=== PATIENT | female | born 1965 ===

== ENCOUNTER 2016-05-23 11:17 | Inpatient (IN) | payer MEDICAID ==
[2016-05-23 11:17] VITALS: BMI 20.1
--- NOTE | 2016-05-23 12:15 | C.PDOC ---
History Of Present Illness 51 y/o male presents to the ED requesting heroin detox, last use was yesterday. Pt also reports right hip pain after falling a few days ago. also reports wheezing, sob Denies head injury, LOC, weakness, numbness or any other complaints. Time Seen by Provider: 05/23/16 11:59 Chief Complaint (Nursing): Substance Abuse History Per: Patient History/Exam Limitations: no limitations Onset/Duration Of Symptoms: Days Current Symptoms Are (Timing): Still Present Modifying Factor(s): Narcotics Severity: Mild Involuntary Hold By: None Recent travel outside of the [place]: No Past Medical History Reviewed: Historical Data, Nursing Documentation, Vital Signs Vital Signs: Last Vital Signs Temp 98.0 F 05/23/16 11:30 Pulse 76 05/23/16 13:34 Resp 20 05/23/16 13:35 BP 128/75 05/23/16 13:34 Pulse Ox 95 05/23/16 15:21 - Medical History PMH: Asthma, Back Problems, Bronchitis, Kidney Stones (RIGHT), Chronic Kidney Disease - [facility] Procedures CLOSURE SKIN & SUBCUTANEOUS NEC (04/25/13) INJECT/INFUSE NEC (06/22/14) INTRODUCTION OF ANTI-INFLAM INTO RESP TRACT, VIA OPENING (03/16/15) INTRODUCTION OF SERUM/TOX/VACCINE INTO MUSCLE, PERC APPROACH (03/16/15) NEBULIZER THERAPY (06/22/14) TETANUS TOXOID ADMINIST (04/25/13) Family History: States: Unknown Family Hx - Social History Hx Tobacco Use: Yes Hx Alcohol Use: No Hx Substance Use: Yes (SNIFFS HERONE 8-9 BAGS DAILY.LAST USED YESTERDAY.) - Immunization History Hx Tetanus Toxoid Vaccination: Yes Hx Influenza Vaccination: Yes Hx Pneumococcal Vaccination: Yes Review Of Systems Except As Marked, All Systems Reviewed And Found Negative. Constitutional: Negative for: Fever Cardiovascular: Negative for: Chest Pain Respiratory: Negative for: Shortness of Breath Gastrointestinal: Negative for: Vomiting Musculoskeletal: Positive for: Other (right hip pain) Physical Exam - Physical Exam Appears: Non-toxic, No Acute Distress Skin: Warm, Dry, No Rash Head: Atraumatic, Normacephalic Nose: Normal Neck: Normal ROM, Supple Chest: Symmetrical Cardiovascular: Rhythm Regular Respiratory: Normal Breath Sounds, No Rales, No Rhonchi, Wheezing (diffuse) Gastrointestinal/Abdominal: Soft Extremity: Normal ROM, No Tenderness, No Deformity, No Swelling Extremity: Bilateral: Atraumatic Pulses: Right Dorsalis Pedis: Normal Neurological/Psych: Oriented x3, Normal Motor, Normal Sensation ED Course And Treatment - Laboratory Results Result Diagrams: 05/23/16 12:16 05/23/16 12:16 O2 Sat by Pulse Oximetry: 95 (on room air) Pulse Ox Interpretation: Normal Progress Note: On reevaluation, wheezing improved slightly, not medically cleared for psych floor, Jackie accepts patient. Medical Decision Making Medical Decision Making: pt wiht persistent wheezing, cannot be medically clear. noted ama from [place] 2 days ago for asthma Disposition - Disposition Disposition: HOSPITALIZED Disposition Time: 15:21 Condition: STABLE - Clinical Impression Clinical Impression: Asthma - Scribe Statement The provider has reviewed the documentation as recorded by the Julian Cantu Provider Attestation: All medical record entries made by the Georgeibe were at my direction and personally dictated by me. I have reviewed the chart and agree that the record accurately reflects my personal performance of the history, physical exam, medical decision making, and the department course for this patient. I have also personally directed, reviewed, and agree with the discharge instructions and disposition. Decision To Admit - Pt Status Changed To: Hospital Disposition Of: Inpatient - Admit Certification Admit to Inpatient:: After my assessment, the patient will require hospitalization for at least two midnights. This is because of the severity of symptoms shown, intensity of services needed, and/or the medical risk in this patient being treated as an outpatient. - InPatient: Physician Admission Certification: I certify that this patient requires 2 or more midnights of care for the following reason:: needs frequent nebs, possible detox - . Bed Request Type: Telemetry Admitting Physician: Bryan Mejia Patient Diagnosis: Asthma
[2016-05-23 12:23] LABS: BASO % 0.4 % (0.0-2.0); EOS % 0.2 % (0.0-4.0); HEMATOCRIT 37.5 % (34.0-47.0); LYMPH # 3.7 K/uL (1.0-4.3); LYMPH % 29.2 % (20.0-40.0); MEAN CELL VOLUME 92.5 fL (81.0-99.0); MEAN CORPUSCULAR HEMOGLOBIN 30.8 pg (27.0-31.0); MEAN CORPUSCULAR HGB CONC 33.3 g/dL (33.0-37.0); MEAN PLATELET VOLUME 9.1 fL (7.2-11.7); MONO # 0.9 K/uL (0.0-0.8); NRBC % 0.1 % (0.0-2.0); RED CELL DISTRIBUTION WIDTH 14.4 % (11.5-14.5); WHITE BLOOD COUNT 12.6 K/uL (4.8-10.8)
[2016-05-23 12:28] LABS: RBC URINE 1 /hpf (0-3); URINE BILIRUBIN NEGATIVE (NEGATIVE); URINE BLOOD NEGATIVE (NEGATIVE); URINE COLOR Yellow (YELLOW); URINE GLUCOSE (UA) NORMAL (Normal); URINE KETONE TRACE mg/dL (NEGATIVE); URINE LEUKOCYTE ESTERASE NEG Leu/uL (Negative); URINE PROTEIN NEGATIVE (NEGATIVE); URINE UROBILINOGEN NORMAL mg/dL (0.2-1.0); WBC URINE 3 /hpf (0-5)
[2016-05-23] MEDS ORDERED: Albuterol-Ipratrop 3 mg / 0.5 (3 ml) UD INH STA ×3 (12:28→13:36)
[2016-05-23 12:29] LABS: CHLORIDE 97 mmol/L (98-107); POTASSIUM 3.6 mmol/L (3.6-5.2); SODIUM 136 mmol/L (132-148)
[2016-05-23 12:31] LABS: AST/SGOT 31 U/L (14-36); BILIRUBIN,TOTAL 0.4 mg/dL (0.2-1.3); CARBON DIOXIDE 26 mmol/L (22-30); GFR AFRICAN-AMERICAN > 60
[2016-05-23 12:32] LABS: ALB/GLOB RATIO 1.2 (1.0-2.1); ALCOHOL SERUM < 10 mg/dl (0-10); ALKALINE PHOSPHATASE 56 U/L (38-126); ALT/SGPT 20 U/L (9-52); BLOOD UREA NITROGEN 16 mg/dL (7-17); CALCIUM 8.3 mg/dl (8.6-10.4); GLUCOSE,RANDOM 87 mg/dL (65-105); TOTAL PROTEIN 7.3 g/dL (6.3-8.3)
[2016-05-23] MEDS ORDERED: Albuterol-Ipratrop 3 mg / 0.5 (3 ml) UD ONE ×2 (12:59→13:53)
--- NOTE | 2016-05-23 13:12 | RAD ---
HISTORY: cough COMPARISON: Chest x-ray performed 03/20/16 TECHNIQUE: Chest, one view. FINDINGS: LUNGS: No focal consolidation. Please note that chest x-ray has limited sensitivity for the detection of pulmonary masses. PLEURA: No significant pleural effusion identified. No definite pneumothorax . CARDIOVASCULAR: Heart size appears within normal limits. OSSEOUS STRUCTURES: Degenerative changes. VISUALIZED UPPER ABDOMEN: Unremarkable. OTHER FINDINGS: None. IMPRESSION: No focal consolidation, significant pleural effusion, or definite pneumothorax identified.
--- NOTE | 2016-05-23 13:20 | RAD ---
PROCEDURE: Right Femur Radiographs. HISTORY: fall COMPARISON: None. TECHNIQUE: AP and Lateral Radiographs of the right femur. FINDINGS: FEMUR: Normal. No fracture. SOFT TISSUES: Normal. OTHER FINDINGS: None. IMPRESSION: Unremarkable radiographs of the right femur.
--- NOTE | 2016-05-23 13:21 | RAD ---
PROCEDURE: Right Hip and pelvis Radiographs. HISTORY: fall COMPARISON: None. FINDINGS: BONES: Normal. No fracture. JOINTS: Normal. SOFT TISSUES: Normal. OTHER FINDINGS: None. IMPRESSION: Negative study
--- NOTE | 2016-05-23 16:48 | CP.PCM.PN ---
Subjective - Date & Time of Evaluation Date of Evaluation: 05/23/16 Time of Evaluation: 16:30 - Subjective Subjective: Dr. Mejia service, admission: Patient is a 51 year old female with a PMH of asthma is here for Heroin detox. She was sent here by her grants officer for heroin detox. She has been through heroin detox before. She has been snorting heroin for the past 20 years. She has used no other illicit drug though. She is complaining of itching feeling on her skin and feeling anxious. She last used heroin last night. She normally uses about 6-7 bags of heroin up to a bundle. She denies ever having used IV drugs before. She denies fever, chills, weight loss, changes in vision , hearing, chest pain, shortness of breath cough, nausea, vomiting, diarrhea, dysuria, hematuria, joint pain or swelling. PMH: asthma, kidney stones PSH: kidney stone removal FH: Father from heart disease SH: Used Heroin for 20 years, smoked 1 pack of cigarettes a day, denies etoh use Allergies: NKDA Objective - Vital Signs/Intake and Output Vital Signs (last 24 hours): Temp Pulse Resp BP Pulse Ox 98.1 F 75 18 112/71 95 05/23/16 15:33 05/23/16 15:33 05/23/16 15:40 05/23/16 15:33 05/23/16 15:40 - Medications Medications: Current Medications Nicotine (Nicoderm Cq) 1 patch TD DAILY [facility] Last Admin: 05/23/16 12:53 Dose: 1 patch - Constitutional Appears: Non-toxic, No Acute Distress - Head Exam Head Exam: ATRAUMATIC, NORMAL INSPECTION, NORMOCEPHALIC - Eye Exam Eye Exam: Normal appearance, PERRL. absent: Nystagmus, Scleral icterus Pupil Exam: NORMAL ACCOMODATION. absent: PERRL - ENT Exam ENT Exam: Normal Exam - Neck Exam Neck Exam: Normal Inspection - Respiratory Exam Respiratory Exam: Clear to Ausculation Bilateral. absent: Rales, Rhonchi, Wheezes - Cardiovascular Exam Cardiovascular Exam: REGULAR RHYTHM, RRR, Rubs. absent: Gallop, +S1, +S2 - GI/Abdominal Exam GI & Abdominal Exam: Soft, Normal Bowel Sounds. absent: Distended, Guarding, Tenderness - Extremities Exam Extremities Exam: Normal Inspection. absent: Pedal Edema - Back Exam Back Exam: NORMAL INSPECTION. absent: CVA tenderness (L), CVA tenderness (R) - Neurological Exam Neurological Exam: Alert, Awake - Psychiatric Exam Psychiatric exam: Flat Affect, Normal Mood - Skin Skin Exam: Dry, Normal Color, Warm Assessment and Plan (1) Drug abuse Assessment & Plan: Patient had lab work in the ED as well as x:rays of the right hip/pelvis/femur and chest which were unremarkable. She is admitted to regular in patient service. Will follow up cbc,cmp,mag, phos Have also consulted psych, Dr. Cowan, help appreciated. Gave 15mg of Methadone today, will give 15mg of methadone tomorrow. Status: Acute (2) Asthma Assessment & Plan: Duoneb Q4H prn for wheezing. Status: Chronic (3) Prophylactic measure Assessment & Plan: Heparin 5000 units SC SCDs Pepcid 20mg bid [place] CQ patch Motrin 600mg prn for pain Status: Acute
[2016-05-23 18:09] LABS: MAGNESIUM 1.6 mg/dL (1.6-2.3); PHOSPHOROUS 3.1 mg/dL (2.5-4.5)
[2016-05-23] MEDS: Albuterol-Ipratrop 3 mg / 0.5 (3 ml) UD INH SCH ×2 (19:58)
[2016-05-24] MEDS: Albuterol-Ipratrop 3 mg / 0.5 (3 ml) UD INH SCH ×6 (00:57→20:08)
[2016-05-24 08:11] LABS: BASO # 0.1 K/uL (0.0-0.2); BASO % 0.5 % (0.0-2.0); HEMATOCRIT 32.9 % (34.0-47.0); LYMPH # 2.3 K/uL (1.0-4.3); MEAN CELL VOLUME 92.9 fL (81.0-99.0); MEAN CORPUSCULAR HEMOGLOBIN 30.2 pg (27.0-31.0); MEAN CORPUSCULAR HGB CONC 32.5 g/dL (33.0-37.0); MEAN PLATELET VOLUME 10.5 fL (7.2-11.7); MONO # 0.7 K/uL (0.0-0.8); RED CELL DISTRIBUTION WIDTH 14.7 % (11.5-14.5); WHITE BLOOD COUNT 11.1 K/uL (4.8-10.8)
[2016-05-24 08:33] LABS: CHLORIDE 94 mmol/L (98-107); SODIUM 133 mmol/L (132-148)
[2016-05-24 08:35] LABS: GFR AFRICAN-AMERICAN > 60
[2016-05-24 08:36] LABS: ALKALINE PHOSPHATASE 41 U/L (38-126); ALT/SGPT 33 U/L (9-52); AST/SGOT 31 U/L (14-36); BILIRUBIN,TOTAL 0.2 mg/dL (0.2-1.3); BLOOD UREA NITROGEN 16 mg/dL (7-17); CARBON DIOXIDE 30 mmol/L (22-30); GLUCOSE,RANDOM 106 mg/dL (65-105); PHOSPHOROUS 3.5 mg/dL (2.5-4.5); TOTAL PROTEIN 6.1 g/dL (6.3-8.3)
[2016-05-24 08:37] LABS: CALCIUM 8.6 mg/dl (8.6-10.4); MAGNESIUM 1.6 mg/dL (1.6-2.3)
[2016-05-24] MEDS ORDERED: MethylPREDNISolone 40 mg Vial IVP ONE (10:45)
--- NOTE | 2016-05-24 15:43 | PCM.PSYCH ---
Initial Psychiatric Evaluation - Initial Psychiatric Evaluation Type of Admission: Voluntary Legal Status: Capacity Chief Complaint (in patient's own words): I'm withdrawing from heroin History of Present Illness and Precipitating Events: Pt is a 51 y/o HF who is currently living homeless and currently unemployed, with history of heroin dependence and bipolar disorder, presented to the ED with cramps and pains. Today patient was consulted because of history of heroin dependence and bipolar disorder. Patient reports a long history of abusing heroin. Patient has been admitted to the ED multiple times for the same reason. As per the patient, as soon as she came out of rehabilitation 1 month ago, she relapsed on heroin and started abusing 10-15 bags on a daily basis. Yesterday she sniffed 15 bags of heroin, started developing withdrawal symptoms, so came to the hospital to get help. Patient reports of withdrawal symptoms including nausea, diarrhea, abdominal cramps, joint pains, sweating, anxiety and headaches. Patient reports irritable mood, but denies any feelings of hopelessness or helplessness. she denies any suicidal ideation or homicidal ideation. Patient reports at times racing of thoughts and flight of ideas. She denies any psychotic symptoms. Patient denies any other substance abuse. Current Medications: Active Medications Generic Name Dose Route Start Last Admin Trade Name Freq PRN Reason Stop Dose Admin Albuterol/Ipratropium 3 ml 05/23/16 18:30 05/24/16 11:03 Duoneb 3 Mg/0.5 Mg (3 Ml) Ud INH Not Given RQ4 [facility] Famotidine 20 mg 05/23/16 18:00 05/24/16 10:21 Pepcid PO 20 mg BID [facility] Administration Heparin Sodium (Porcine) 5,000 units 05/23/16 22:00 05/24/16 14:43 Heparin SC 5,000 units Q8 [facility] Administration Ibuprofen 600 mg 05/23/16 16:52 05/24/16 06:40 Motrin Tab PO 600 mg Q6 PRN Administration Pain, severe (8-10) Influenza Virus Vaccine 45 mcg 05/26/16 12:23 Afluria IM 05/26/16 12:24 .ONCE ONE Methadone HCl 15 mg 05/24/16 10:00 05/24/16 10:21 Methadone PO 15 mg DAILY [facility] Administration Methylprednisolone 40 mg 05/24/16 18:00 Solu-Medrol IVP Q8H [facility] Nicotine 1 patch 05/23/16 12:30 05/24/16 10:24 Nicoderm Cq TD 1 patch DAILY [facility] Administration Past Psychiatric History - Past Psychiatric History Previous Treatment History: None Pertinent Medical Hx (Current Medical&Sleep Prob, Allergies): Allergies Allergy/AdvReac Type Severity Reaction Status Date / Time No Known Allergies Allergy Verified 05/23/16 11:30 Albuterol HFA [Ventolin HFA 90 mcg/actuation (8 g)] 1 - 2 puff IH Q6H PRN #1 inhaler 11/11/15 Review of Systems - Review of Systems All systems: reviewed and no additional remarkable complaints except - Psychiatric Psychiatric: Anxiety, Irritability. absent: Auditory Hallucinations, Suicidal Ideation, Visual Hallucinations Mental Status Examination - Personal Presentation Personal Presentation: Looks stated age - Affect Affect: Constricted - Motor Activity Motor Activity: Psychomotor Agitation - Reliability in Providing Information Reliability in Providing Information: Good - Speech Speech: Organized - Mood Mood: Anxious - Formal Thought Process Formal Thought Process: No Impairment - Obsessions/Compulsions Obsessions: No Compulsions: No - Cognitive Functions Orientation: Person, Place, Situation, Time Sensorium: Alert Attention/Concentration: Attentive Abstract Thinking: [place] Estimate of Intelligence: Below average Judgement: Imparied, as evidence by: Poor judgement, Intact, as evidence by: Insight regarding need for hospitalization - Risk Risk: Withdrawal, Diminished functioning - Strength & Assets Inventory Strength & Assets Inventory: Cooperative - Limitations Limitations: Living alone DSM 5 DX - DSM 5 DSM 5 Diagnosis: Opioid use disorder severe Opioid withdrawal Bipolar disorder mixed moderate - Recommended/Plan of Treatment Treatment Recommendations and Plan of Treatment: Opioid use disorder severe CBT Psychoeducation Supportive therapy, individual therapy Use [place] for abstinence Opioid withdrawal CBT Psychoeducation Supportive therapy, individual therapy Clonidine when necessary Methadone taper Bipolar disorder mixed moderate CBT Psychoeducation Supportive therapy, individual therapy Depakote 500 mg by mouth twice a day Neurontin 100 mg by mouth 3 times a day - Smoking Cessation Smoking Cessation Initiated: No
--- NOTE | 2016-05-24 16:15 | CP.PCM.PN ---
Subjective - Date & Time of Evaluation Date of Evaluation: 05/24/16 Time of Evaluation: 10:00 - Subjective Subjective: Dr. Mejia service: Patient seen and examined in room. She was complaing of shortness of breath this am. She is also very anxious and is asking for more methadone. She currently denies nausea, vomiting, diarrhea, chest pain, or palpitations. Objective - Vital Signs/Intake and Output Vital Signs (last 24 hours): Temp Pulse Resp BP Pulse Ox 97.7 F 72 20 157/89 H 97 05/24/16 08:12 05/24/16 08:12 05/24/16 08:12 05/24/16 08:12 05/24/16 08:12 Intake and Output: 05/24/16 05/24/16 06:59 18:59 Intake Total 880 Balance 880 - Medications Medications: Current Medications Albuterol/Ipratropium (Duoneb 3 Mg/0.5 Mg (3 Ml) Ud) 3 ml INH RQ4 [facility] Last Admin: 05/24/16 16:01 Dose: 3 ml Famotidine (Pepcid) 20 mg PO BID [facility] Last Admin: 05/24/16 10:21 Dose: 20 mg Heparin Sodium (Porcine) (Heparin) 5,000 units SC Q8 [facility] Last Admin: 05/24/16 14:43 Dose: 5,000 units Ibuprofen (Motrin Tab) 600 mg PO Q6 PRN PRN Reason: Pain, severe (8-10) Last Admin: 05/24/16 06:40 Dose: 600 mg Influenza Virus Vaccine (Afluria) 45 mcg IM .ONCE ONE Stop: 05/26/16 12:24 Methadone HCl (Methadone) 15 mg PO DAILY [facility] Last Admin: 05/24/16 10:21 Dose: 15 mg Methylprednisolone (Solu-Medrol) 40 mg IVP Q8H [facility] Nicotine (Nicoderm Cq) 1 patch TD DAILY [facility] Last Admin: 05/24/16 10:24 Dose: 1 patch - Labs Labs: 05/24/16 08:04 05/24/16 08:04 - Constitutional Appears: Non-toxic, No Acute Distress - Head Exam Head Exam: NORMAL INSPECTION - Eye Exam Eye Exam: Normal appearance Pupil Exam: NORMAL ACCOMODATION - Respiratory Exam Respiratory Exam: Rhonchi, Wheezes, NORMAL BREATHING PATTERN. absent: Clear to Ausculation Bilateral, Rales - Cardiovascular Exam Cardiovascular Exam: REGULAR RHYTHM, RRR, +S1, +S2. absent: Gallop, Rubs - GI/Abdominal Exam GI & Abdominal Exam: Soft, Normal Bowel Sounds. absent: Tenderness - Extremities Exam Extremities Exam: Normal Inspection. absent: Calf Tenderness, Pedal Edema - Psychiatric Exam Psychiatric exam: Anxious - Skin Skin Exam: Dry, Normal Color Assessment and Plan (1) Drug abuse Assessment & Plan: Patient is on Methadone Clonodine as been added prn Status: Acute (2) Asthma Assessment & Plan: Duoneb 3ml Q4h Solumedrol 40mg Q8H Status: Chronic (3) Prophylactic measure Assessment & Plan: Continue with Lovenox and protonix. Status: Acute
[2016-05-24] MEDS: MethylPREDNISolone 40 mg Vial IVP SCH (17:22)
[2016-05-24] MEDS: Divalproex 500 mg DR Tab PO SCH (18:44)
[2016-05-25] MEDS: Albuterol-Ipratrop 3 mg / 0.5 (3 ml) UD INH SCH ×6 (00:46→21:28)
[2016-05-25] MEDS: MethylPREDNISolone 40 mg Vial IVP SCH ×3 (02:21→18:00)
[2016-05-25] MEDS: Divalproex 500 mg DR Tab PO SCH ×2 (10:10→18:00)
[2016-05-25] MEDS ORDERED: Pneumococcal 23-Valent Vaccine IM ONE (12:42)
[2016-05-26] MEDS: Albuterol-Ipratrop 3 mg / 0.5 (3 ml) UD INH SCH ×7 (00:53→19:25)
[2016-05-26] MEDS: MethylPREDNISolone 40 mg Vial IVP SCH ×3 (01:37→18:04)
[2016-05-26] MEDS: Divalproex 500 mg DR Tab PO SCH ×2 (10:07→18:04)
[2016-05-26] MEDS ORDERED: Influenza Virus Vaccine 45 mcg/0.5 ml Syr IM ONE (12:23)
[2016-05-27] MEDS: Albuterol-Ipratrop 3 mg / 0.5 (3 ml) UD INH SCH ×4 (00:40→05:52)
[2016-05-27] MEDS: MethylPREDNISolone 40 mg Vial IVP SCH (02:33)
[2016-05-27] MEDS ORDERED: MethylPREDNISolone 40 mg Vial IVP SCH (08:00)
--- NOTE | 2016-05-27 08:41 | CP.PCM.PN ---
Subjective - Date & Time of Evaluation Date of Evaluation: 05/27/16 Time of Evaluation: 07:20 - Subjective Subjective: PGY2 Medicine Note - Dr. Mejia's service: Patient seen and examined at bedside this AM. Patient very concerned about her methadone dose and getting into a methadone clinic. Patient reports cough at night productive of white phlegm which used to be yellow a few days ago. Patient reports wheezing but being able to walk around the floor okay without having an attack. Patient standing up eating her breakfast when I came in. Patient had no respiratory distress. Patient talking in full sentences. Patient denies fever, chills, chest pain, abdominal pain, nausea, vomiting. Objective - Vital Signs/Intake and Output Vital Signs (last 24 hours): Temp Pulse Resp BP Pulse Ox 97.9 F 82 20 146/85 95 05/27/16 00:00 05/27/16 01:22 05/27/16 00:00 05/27/16 00:00 05/27/16 00:00 Intake and Output: 05/27/16 05/27/16 06:59 18:59 Intake Total 360 Balance 360 - Medications Medications: Current Medications Albuterol/Ipratropium (Duoneb 3 Mg/0.5 Mg (3 Ml) Ud) 3 ml INH RQ4 [facility] Last Admin: 05/27/16 05:52 Dose: 3 ml Clonidine HCl (Catapres) 0.1 mg PO Q6 PRN PRN Reason: Opiate reversal Divalproex Sodium (Depakote Dr) 500 mg PO BID [facility] Last Admin: 05/26/16 18:04 Dose: 500 mg Famotidine (Pepcid) 20 mg PO BID [facility] Last Admin: 05/26/16 18:04 Dose: 20 mg Gabapentin (Neurontin) 100 mg PO TID [facility] Last Admin: 05/26/16 18:04 Dose: 100 mg Ibuprofen (Motrin Tab) 600 mg PO Q6 PRN PRN Reason: Pain, severe (8-10) Last Admin: 05/26/16 07:40 Dose: 600 mg Methadone HCl (Methadone) 5 mg PO DAILY [facility] PRN Reason: Taper Stop: 05/27/16 09:59 Last Admin: 05/26/16 10:10 Dose: 5 mg Methylprednisolone (Solu-Medrol) 40 mg IVP Q12H [facility] Last Admin: 05/27/16 08:12 Dose: 40 mg Nicotine (Nicoderm Cq) 1 patch TD DAILY [facility] Last Admin: 05/26/16 10:08 Dose: 1 patch - Labs Labs: 05/24/16 08:04 05/24/16 08:04 - Constitutional Appears: Non-toxic, No Acute Distress - Head Exam Head Exam: NORMAL INSPECTION - Eye Exam Eye Exam: EOMI - ENT Exam ENT Exam: Mucous Membranes Moist - Respiratory Exam Respiratory Exam: Rhonchi, Wheezes, NORMAL BREATHING PATTERN. absent: Accessory Muscle Use, Decreased Breath Sounds, Clear to Ausculation Bilateral, Rales, Respiratory Distress - Cardiovascular Exam Cardiovascular Exam: REGULAR RHYTHM, +S1, +S2. absent: Gallop, Rubs, Murmur - GI/Abdominal Exam GI & Abdominal Exam: Soft, Normal Bowel Sounds. absent: Distended, Firm, Tenderness - Extremities Exam Extremities Exam: Normal Capillary Refill. absent: Pedal Edema - Neurological Exam Neurological Exam: Alert, Oriented x3 - Psychiatric Exam Psychiatric exam: Normal Affect, Normal Mood - Skin Skin Exam: Dry, Normal Color Assessment and Plan - Assessment and Plan (Free Text) Assessment: (1) Drug abuse Assessment & Plan: 05/27: Clonidine 0.1mg PO Q6 PRN Methadone 5mg PO daily 05/25/16 to 05/27/16 Nicoderm 1 patch TD daily Case management referral to set up methadone clinic Previous note: Patient had lab work in the ED as well as x:rays of the right hip/pelvis/femur and chest which were unremarkable. She is admitted to regular in patient service. Will follow up cbc,cmp,mag, phos Have also consulted psych, Dr. Cowan, help appreciated. Gave 15mg of Methadone today, will give 15mg of methadone tomorrow. Status: Acute (2) Asthma Assessment & Plan: Duoneb Q4H prn for wheezing. CXR on admission - no focal consolidation, pleural effusion or definite pneumothorax. F/U repeat CXR today Status: Chronic (3) Prophylactic measure Assessment & Plan: Heparin 5000 units SC SCDs Pepcid 20mg bid Nicoderm TD patch Motrin 600mg prn for pain Status: Acute
[2016-05-27 08:46] LABS: HEMATOCRIT 34.7 % (34.0-47.0); LYMPH # 1.1 K/uL (1.0-4.3); LYMPH % 8.6 % (20.0-40.0); MEAN CELL VOLUME 93.5 fL (81.0-99.0); MEAN CORPUSCULAR HEMOGLOBIN 30.9 pg (27.0-31.0); MEAN CORPUSCULAR HGB CONC 33.1 g/dL (33.0-37.0); MEAN PLATELET VOLUME 9.8 fL (7.2-11.7); MONO # 0.5 K/uL (0.0-0.8); MONO % 4.2 % (0.0-10.0); PLATELET COUNT 244 K/uL (130-400); RED CELL DISTRIBUTION WIDTH 14.7 % (11.5-14.5); WHITE BLOOD COUNT 12.2 K/uL (4.8-10.8)
[2016-05-27 08:53] LABS: CHLORIDE 90 mmol/L (98-107); POTASSIUM 4.2 mmol/L (3.6-5.2); SODIUM 133 mmol/L (132-148)
[2016-05-27 08:55] LABS: GFR AFRICAN-AMERICAN > 60
[2016-05-27 08:56] LABS: ALB/GLOB RATIO 1.3 (1.0-2.1); ALKALINE PHOSPHATASE 44 U/L (38-126); ALT/SGPT 17 U/L (9-52); AST/SGOT 22 U/L (14-36); BILIRUBIN,TOTAL 0.1 mg/dL (0.2-1.3); BLOOD UREA NITROGEN 21 mg/dL (7-17); CARBON DIOXIDE 29 mmol/L (22-30); GLUCOSE,RANDOM 141 mg/dL (65-105); TOTAL PROTEIN 6.8 g/dL (6.3-8.3)
[2016-05-27 08:57] LABS: CALCIUM 8.7 mg/dl (8.6-10.4)
--- NOTE | 2016-05-27 09:44 | RAD ---
HISTORY: Possible pneumonia COMPARISON: 05/23/2016. TECHNIQUE: Chest PA and lateral FINDINGS: LUNGS: The lungs are well inflated and clear. PLEURA: No significant pleural effusion identified. No pneumothorax apparent. CARDIOVASCULAR: Normal. OSSEOUS STRUCTURES: Unremarkable for the patient's age. VISUALIZED UPPER ABDOMEN: Normal. OTHER FINDINGS: None. IMPRESSION: No active pulmonary disease.
[2016-05-27 10:27] LABS: NEUTROPHIL 86 % (50-75); TOTAL CELLS COUNTED 100
[2016-05-27] MEDS: Divalproex 500 mg DR Tab PO SCH (10:59)
[2016-05-27] MEDS ORDERED: Influenza Virus Vaccine 45 mcg/0.5 ml Syr IM ONE (11:00)
[2016-05-27 12:47] VITALS: BP 130/80; PULSE 72; RESP 18; TEMP 97.5; O2SAT 98
== END 2016-05-27 12:26 | disposition home or self-care (01) | DRG 745 ==
LOC: C.ER 11:17 → C.9E 13:39 → C.3T 17:08
PROVIDERS: ADMIT Internal Medicine Pulmonary Disease; ATTEND Internal Medicine Pulmonary Disease
PROC: HZ81ZZZ Medication Management for Substance Abuse Treatment, Methadone Maintenance (ICD-10-PCS; principal; 2016-05-24)
PROC: HZ2ZZZZ Detoxification Services for Substance Abuse Treatment (ICD-10-PCS; 2016-05-24)
PROC: HZ59ZZZ Individual Psychotherapy for Substance Abuse Treatment, Supportive (ICD-10-PCS; 2016-05-24)
PROC: GZ3ZZZZ Medication Management (ICD-10-PCS; 2016-05-24)
DX: F11.23 Opioid dependence with withdrawal (principal); J45.909 Unspecified asthma, uncomplicated; F31.62 Bipolar disorder, current episode mixed, moderate; W19.XXXA Unspecified fall, initial encounter; F17.210 Nicotine dependence, cigarettes, uncomplicated; R06.02 Shortness of breath; M25.551 Pain in right hip; Z87.442 Personal history of urinary calculi; Z59.0 Homelessness

== ENCOUNTER 2016-08-26 10:07 | Emergency (ER) | payer MEDICAID ==
[2016-08-26 10:07] VITALS: BMI 20.1
[2016-08-26] MEDS ORDERED: Albuterol-Ipratrop 3 mg / 0.5 (3 ml) UD IH STA (10:43)
[2016-08-26 10:45] LABS: VENOUS BLOOD GAS PCO2 49 mmHg (40-60); VENOUS BLOOD PH 7.38 (7.32-7.43)
[2016-08-26] MEDS ORDERED: Albuterol-Ipratrop 3 mg / 0.5 (3 ml) UD ONE (10:51)
[2016-08-26 11:02] LABS: CHLORIDE 98 mmol/L (98-107); POTASSIUM 3.1 mmol/L (3.6-5.2); SODIUM 133 mmol/L (132-148)
[2016-08-26 11:04] LABS: BILIRUBIN,TOTAL 0.5 mg/dL (0.2-1.3); CARBON DIOXIDE 26 mmol/L (22-30); GFR AFRICAN-AMERICAN > 60
[2016-08-26 11:05] LABS: ALB/GLOB RATIO 1.1 (1.0-2.1); ALKALINE PHOSPHATASE 63 U/L (38-126); ALT/SGPT 25 U/L (9-52); AST/SGOT 25 U/L (14-36); BASO # 0.2 K/uL (0.0-0.2); BASO % 2.5 % (0.0-2.0); BLOOD UREA NITROGEN 8 mg/dL (7-17); CALCIUM 7.7 mg/dl (8.6-10.4); EOS % 0.3 % (0.0-4.0); GLUCOSE,RANDOM 172 mg/dL (65-105); HEMATOCRIT 38.7 % (34.0-47.0); LYMPH # 1.4 K/uL (1.0-4.3); LYMPH % 16.9 % (20.0-40.0); MEAN CORPUSCULAR HEMOGLOBIN 29.4 pg (27.0-31.0); MEAN CORPUSCULAR HGB CONC 32.3 g/dL (33.0-37.0); MEAN PLATELET VOLUME 9.3 fL (7.2-11.7); MONO # 0.5 K/uL (0.0-0.8); MONO % 6.8 % (0.0-10.0); RED CELL DISTRIBUTION WIDTH 14.6 % (11.5-14.5); TOTAL PROTEIN 6.9 g/dL (6.3-8.3); WHITE BLOOD COUNT 8.1 K/uL (4.8-10.8)
[2016-08-26 11:09] LABS: MEAN CELL VOLUME 91.2 fL (81.0-99.0)
--- NOTE | 2016-08-26 11:55 | RAD ---
Chest x-ray two views History: Cough and dyspnea. Comparison: 05/27/2016 Findings: Biapical pleural thickening with upper lobe granulomatous changes. Hyperinflation suggestive for COPD and or emphysematous changes. Diffuse increased interstitial lung markings. Nodular densities seen within the mid to lower lung zones bilaterally measuring up to 1.1 centimeters on the right and up to 0.7 centimeters on the left. These may represent nodules versus nipple shadows versus prominent vasculature. Correlation with nipple markers may be helpful. Bilateral hilar prominence. Heart size within normal limits. Degenerative changes in the spine and shoulders. Impression: Biapical pleural thickening with upper lobe granulomatous changes. Hyperinflation suggestive for COPD and or emphysematous changes. Diffuse increased interstitial lung markings. Nodular densities seen within the mid to lower lung zones bilaterally measuring up to 1.1 centimeters on the right and up to 0.7 centimeters on the left. These may represent nodules versus nipple shadows versus prominent vasculature. Correlation with nipple markers may be helpful. Bilateral hilar prominence.
--- NOTE | 2016-08-26 12:30 | C.PDOC ---
History Of Present Illness 51 y /o F c PMHx asthma p/w shortness of breath and cough. Patient states she was at her methadone clinic when she began having an asthma attack. She states she ran out of her albuterol pump so EMS was called and she was given 3 duonebs and solu medrol en route, and by the time she came to the ER, she states she feels much better. Denies fever, vomiting, or current dyspnea. Time Seen by Provider: 08/26/16 10:13 Chief Complaint (Nursing): Shortness Of Breath Past Medical History Vital Signs: Last Vital Signs Temp Pulse Resp 24 08/26/16 10:23 BP Pulse Ox 95 08/26/16 10:23 - Medical History PMH: Asthma, Back Problems, Bronchitis, Kidney Stones (RIGHT), Chronic Kidney Disease Denies: Diabetes, Hepatitis, HIV, HTN, Seizures, Sexually Transmitted Disease - [facility] Procedures CLOSURE SKIN & SUBCUTANEOUS NEC (04/25/13) DETOXIFICATION SERVICES FOR SUBSTANCE ABUSE TREATMENT (05/23/16) INDIV PSYCHOTHERAPY FOR SUBSTANCE ABUSE TREATMENT, SUPPORT (05/23/16) INJECT/INFUSE NEC (06/22/14) INTRODUCTION OF ANTI-INFLAM INTO RESP TRACT, VIA OPENING (03/16/15) INTRODUCTION OF SERUM/TOX/VACCINE INTO MUSCLE, PERC APPROACH (03/16/15) MEDICATION MANAGEMENT (05/23/16) MEDS MGMT FOR SUBSTANCE ABUSE TREATMENT, METHADONE MAINT (05/23/16) NEBULIZER THERAPY (06/22/14) TETANUS TOXOID ADMINIST (04/25/13) Family History: States: Unknown Family Hx - Social History Hx Tobacco Use: Yes Hx Alcohol Use: No Hx Substance Use: Yes (last use 3 mos ago) - Immunization History Hx Tetanus Toxoid Vaccination: Yes Hx Influenza Vaccination: Yes Hx Pneumococcal Vaccination: Yes Review Of Systems Except As Marked, All Systems Reviewed And Found Negative. Constitutional: Negative for: Fever Cardiovascular: Negative for: Chest Pain Physical Exam - Physical Exam Additional Physical Exam Comments: Constitutional: No acute distress. Head: Normocephalic. Atraumatic. Eyes: PERRL. ENT: Moist mucous membranes. Neck: Supple. Cardiovascular: Regular rate. Radial pulse 2+ bilaterally. Chest: No tenderness. Respiratory: Wheezing bilaterally. No accessory muscle use. GI: Soft. Nontender. Nondistended. Back: No CVA tenderness. Musculoskeletal: No tenderness or swelling of extremities. Skin: No rash. Neurologic: Alert, no focal deficit ED Course And Treatment - Laboratory Results Result Diagrams: 08/26/16 10:51 08/26/16 10:51 O2 Sat by Pulse Oximetry: 95 Medical Decision Making Medical Decision Making: Impression: Biapical pleural thickening with upper lobe granulomatous changes. Hyperinflation suggestive for COPD and or emphysematous changes. Diffuse increased interstitial lung markings. Nodular densities seen within the mid to lower lung zones bilaterally measuring up to 1.1 centimeters on the right and up to 0.7 centimeters on the left. These may represent nodules versus nipple shadows versus prominent vasculature. Correlation with nipple markers may be helpful. Bilateral hilar prominence. CXR does not look different from previous. Patient would like to go home with prescription. Instructed to f/u with PMD, return to ER for worsening dyspnea. Disposition - Disposition Disposition: HOME/ ROUTINE Disposition Time: 12:32 Condition: STABLE Additional Instructions: Impression: Biapical pleural thickening with upper lobe granulomatous changes. Hyperinflation suggestive for COPD and or emphysematous changes. Diffuse increased interstitial lung markings. Nodular densities seen within the mid to lower lung zones bilaterally measuring up to 1.1 centimeters on the right and up to 0.7 centimeters on the left. These may represent nodules versus nipple shadows versus prominent vasculature. Correlation with nipple markers may be helpful. Bilateral hilar prominence. Prescriptions: Albuterol 0.083% [Albuterol Sulfate 3 Ml] 3 ml IH Q4 #150 neb Albuterol HFA [Ventolin HFA 90 mcg/actuation (8 g)] 2 puff IH Q6 #1 inhaler Prednisone [Deltasone] 3 tab PO DAILY #12 tablet Instructions: Asthma (ED) - Clinical Impression Clinical Impression: Exacerbation of asthma
[2016-08-26 12:50] VITALS: BP 122/62; PULSE 89; RESP 22; O2SAT 94
== END 2016-08-26 12:50 | disposition home or self-care (01) ==
LOC: C.ER 10:07
DX: J45.901 Unspecified asthma with (acute) exacerbation (principal); Z72.0 Tobacco use

== ENCOUNTER 2016-10-01 11:12 | Observation (INO) | payer MEDICAID ==
[2016-10-01 11:12] VITALS: BMI 20.1
[2016-10-01] MEDS ORDERED: Albuterol-Ipratrop 3 mg / 0.5 (3 ml) UD INH STA ×3 (11:39→11:42)
[2016-10-01] MEDS ORDERED: Albuterol-Ipratrop 3 mg / 0.5 (3 ml) UD ONE ×2 (11:48→13:47)
[2016-10-01] MEDS ORDERED: Magnesium Sulfate 1 gm in D5W 1 GM/100 ML BAG IVPB ONE ×2 (11:49→11:52)
[2016-10-01] MEDS: Magnesium Sulfate 1 gm in D5W 1 GM/100 ML BAG IVPB SCH ×2 (11:52→12:59)
--- NOTE | 2016-10-01 12:00 | RAD ---
HISTORY: wheezing COMPARISON: Chest x-ray performed 08/26/16 TECHNIQUE: Chest, one view. FINDINGS: LUNGS: Hyperinflation may be seen in setting of COPD. Increased lucencies especially within the bilateral upper lung perez compatible with underlying emphysema. No focal consolidation. Bilateral hilar prominence. Chronic appearing prominent bilateral interstitial markings. Bilateral nodular densities appear consistent with nipple shadows. Please note that chest x-ray has limited sensitivity for the detection of pulmonary masses. PLEURA: No significant pleural effusion identified. No definite pneumothorax . CARDIOVASCULAR: Heart size appears within normal limits. Ectatic aorta. Atherosclerotic calcifications. OSSEOUS STRUCTURES: Osseous demineralization. Degenerative changes. Evidence of bilateral calcific tendinitis of the shoulders. Mild curvature of the thoracic spine to the right. VISUALIZED UPPER ABDOMEN: Unremarkable. OTHER FINDINGS: None. IMPRESSION: Appearance suggestive of COPD/emphysema. Bilateral hilar prominence. Chronic appearing prominent interstitial markings. Additional findings as above.
--- NOTE | 2016-10-01 12:13 | C.PDOC ---
History Of Present Illness Patient is a 51 y/o F with hx of asthma and substance abuse, last evaluated in [facility] 2 days ago for asthma, presenting with SOB. Patient reports worsening wheezing and shortness of breath. She has given solumedrol and duoneb x 1 on route. Denies fever but reports productive cough. Time Seen by Provider: 10/01/16 11:18 Chief Complaint (Nursing): Shortness Of Breath Past Medical History Vital Signs: Last Vital Signs Temp 97.8 F 10/01/16 11:16 Pulse 77 10/01/16 11:16 Resp 22 10/01/16 11:53 BP 145/98 H 10/01/16 11:16 Pulse Ox 93 L 10/01/16 13:17 - Medical History PMH: Asthma, Back Problems, Bronchitis, Kidney Stones (RIGHT), Chronic Kidney Disease Denies: Diabetes, Hepatitis, HIV, HTN, Seizures, Sexually Transmitted Disease - [facility] Procedures CLOSURE SKIN & SUBCUTANEOUS NEC (04/25/13) DETOXIFICATION SERVICES FOR SUBSTANCE ABUSE TREATMENT (05/23/16) INDIV PSYCHOTHERAPY FOR SUBSTANCE ABUSE TREATMENT, SUPPORT (05/23/16) INJECT/INFUSE NEC (06/22/14) INTRODUCTION OF ANTI-INFLAM INTO RESP TRACT, VIA OPENING (03/16/15) INTRODUCTION OF SERUM/TOX/VACCINE INTO MUSCLE, PERC APPROACH (03/16/15) MEDICATION MANAGEMENT (05/23/16) MEDS MGMT FOR SUBSTANCE ABUSE TREATMENT, METHADONE MAINT (05/23/16) NEBULIZER THERAPY (06/22/14) TETANUS TOXOID ADMINIST (04/25/13) Family History: States: Unknown Family Hx - Social History Hx Tobacco Use: Yes Hx Alcohol Use: No Hx Substance Use: Yes (SNIFFS HERONE 8-9 BAGS DAILY.LAST USED YESTERDAY.) - Immunization History Hx Tetanus Toxoid Vaccination: Yes Hx Influenza Vaccination: Yes Hx Pneumococcal Vaccination: Yes Review Of Systems Constitutional: Negative for: Fever, Chills Cardiovascular: Negative for: Chest Pain, Palpitations, Orthopnea, Edema, Light Headedness Respiratory: Positive for: Cough, Shortness of Breath, Sputum, Wheezing. Negative for: Pleuritic Pain Gastrointestinal: Negative for: Nausea, Vomiting, Abdominal Pain, Diarrhea, Constipation Genitourinary: Negative for: Dysuria Physical Exam - Physical Exam Appears: Well (speaking in complete sentences), Non-toxic, No Acute Distress Skin: Normal Color, Warm, Dry Head: Atraumatic, Normacephalic Eye(s): bilateral: Normal Inspection, PERRL, EOMI Neck: Normal Cardiovascular: Rhythm Regular Respiratory: Wheezing Gastrointestinal/Abdominal: Soft, No Tenderness, No Mass, No Distention ED Course And Treatment O2 Sat by Pulse Oximetry: 93 Medical Decision Making Medical Decision Making: Will give duonebs x 3, Mg, and cxray to r/o pna 12:14PM PF:150 (baseline 200) 1:35PM Patient had recent ED visit with worsening synptoms and has Dailed outpatient therapy. Repeat PF unchanged after 3 duonebs. Cxray consistent with COPD. Gave azithromycin as component of COPD exacebation. Spoke to PMD Dr. Mejia and will transfer to tele observation for asthma exacerbation Disposition - Disposition Disposition: HOSPITALIZED Disposition Time: 13:17 Condition: FAIR - Clinical Impression Clinical Impression: Exacerbation of asthma, COPD exacerbation
[2016-10-01] MEDS ORDERED: Albuterol-Ipratrop 3 mg / 0.5 (3 ml) UD INH SCH (14:00)
[2016-10-01 17:03] LABS: MEAN CELL VOLUME 92.8 fL (81.0-99.0); MEAN CORPUSCULAR HEMOGLOBIN 30.9 pg (27.0-31.0); MEAN CORPUSCULAR HGB CONC 33.3 g/dL (33.0-37.0); MEAN PLATELET VOLUME 8.5 fL (7.2-11.7); RED CELL DISTRIBUTION WIDTH 14.7 % (11.5-14.5); WHITE BLOOD COUNT 8.2 K/uL (4.8-10.8)
--- NOTE | 2016-10-01 17:04 | RAD ---
PROCEDURE: Radiographs of the Chest and Left Ribs. HISTORY: s/p fall at home x2 days ago, c/o pain COMPARISON: None available. TECHNIQUE: Frontal radiograph of the chest and multiple oblique radiographs of the left ribs were obtained. FINDINGS: LEFT RIBS: nondisplaced distal left 8th rib fracture mild in the most anterior aspect of this rib on oblique view LUNGS: Clear. PLEURA: No pneumothorax. Possible trace left pleural effusion CARDIOVASCULAR: Normal sized heart. No pulmonary vascular congestion. OTHER FINDINGS: Scoliosis IMPRESSION: Nondisplaced distal left 8th rib fracture as per oblique view. . Findings were called to the floor given to the nurse Linda who is taking care of the patient on 10/01/2016 at 4:57 p.m. No pneumothorax. Possible trace pleural effusion
[2016-10-01 17:22] LABS: CHLORIDE 94 mmol/L (98-107)
[2016-10-01 17:23] LABS: POTASSIUM 3.9 mmol/L (3.6-5.2); SODIUM 136 mmol/L (132-148)
[2016-10-01 17:25] LABS: ALB/GLOB RATIO 1.1 (1.0-2.1); ALKALINE PHOSPHATASE 71 U/L (38-126); AST/SGOT 25 U/L (14-36); BILIRUBIN,TOTAL 0.4 mg/dL (0.2-1.3); BLOOD UREA NITROGEN 13 mg/dL (7-17); CARBON DIOXIDE 28 mmol/L (22-30); GFR AFRICAN-AMERICAN > 60; GLUCOSE,RANDOM 225 mg/dL (65-105)
[2016-10-01 17:26] LABS: ALT/SGPT 27 U/L (9-52); CALCIUM 8.3 mg/dl (8.6-10.4)
[2016-10-01] MEDS: Albuterol-Ipratrop 3 mg / 0.5 (3 ml) UD INH SCH ×2 (17:28→19:56)
[2016-10-02] MEDS: Albuterol-Ipratrop 3 mg / 0.5 (3 ml) UD INH SCH ×6 (00:17→19:52)
[2016-10-02] MEDS: Methadone 40 mg Tab PO SCH (09:17)
[2016-10-02] MEDS: Enoxaparin 40 mg Syringe SC SCH (09:18)
--- NOTE | 2016-10-02 09:43 | CP.PCM.PN ---
Subjective - Date & Time of Evaluation Date of Evaluation: 10/02/16 Time of Evaluation: 09:00 - Subjective Subjective: Medicine Note- Dr Mejia's Service Patient is a 51 year old female with PMHx of and asthma and COPD who presented to the ED yesterday with complaint of shortness of breath. Patient admits that she ran out of her Ventolin inhaler a few days ago so her asthma has been uncontrolled. Patient was given Duonebs x3 in the ED and admitted to [facility] after her peak flow was unchanged. Patient was seen and examined this morning. Patient admits to tobacco use daily and states that she is currently homeless. Patient does not like living in shelters because "they are dirty" so she is living on the streets. Today the patient states that her breathing has improved but still complains of dry cough and wheezing. Denies chest pain, palpitations, fever, chills, nausea, vomiting, abdominal pain, headache, and difficulty ambulating. Patient states that she slept well and took a shower this morning. Patient is refusing to wear her nurse monitoring because she states the stickers hurt her skin. She is also refusing Lovenox because she doesn't want to be "pinched." Patient is complaining that she didn't enjoy her breakfast because she wasn't given molina. PMHx: Asthma, COPD PSHx: Right Kidney Stone Family Hx: Mother - Gastric CA. Asthma in multiple first degree relatives Social Hx: Tobacco 1 Pack per week. No ETOH. In Methadone program, takes Methadone 60mg PO daily. Homeless. Allergies: no known drug allergies Objective - Vital Signs/Intake and Output Vital Signs (last 24 hours): Temp Pulse Resp BP Pulse Ox 98.1 F 80 18 153/89 H 98 10/02/16 07:54 10/02/16 07:54 10/02/16 07:54 10/02/16 07:54 10/02/16 07:54 Intake and Output: 10/02/16 10/02/16 06:59 18:59 Intake Total 600 Balance 600 - Medications Medications: Current Medications Albuterol/Ipratropium (Duoneb 3 Mg/0.5 Mg (3 Ml) Ud) 3 ml INH RQ4 [facility] Last Admin: 10/02/16 07:23 Dose: 3 ml Aspirin (Aspirin) 325 mg PO DAILY [facility] Last Admin: 10/02/16 09:17 Dose: 325 mg Clopidogrel Bisulfate (Plavix) 75 mg PO DAILY [facility] Last Admin: 10/02/16 09:17 Dose: 75 mg Enoxaparin Sodium (Lovenox) 40 mg SC DAILY [facility] Last Admin: 10/02/16 09:18 Dose: Not Given Methadone HCl (Methadose) 40 mg PO DAILY [facility] Last Admin: 10/02/16 09:17 Dose: 40 mg Methadone HCl (Methadone) 20 mg PO DAILY [facility] Last Admin: 10/02/16 09:17 Dose: 20 mg Montelukast Sodium (Singulair) 10 mg PO [facility] Nicotine (Nicoderm Cq) 1 patch TD DAILY [facility] - Labs Labs: 10/01/16 16:50 10/01/16 16:50 - Constitutional Appears: Non-toxic, No Acute Distress - Head Exam Head Exam: ATRAUMATIC, NORMOCEPHALIC - Eye Exam Eye Exam: EOMI, Normal appearance - ENT Exam ENT Exam: Mucous Membranes Moist - Neck Exam Neck Exam: Normal Inspection - Respiratory Exam Respiratory Exam: Wheezes (diffuse in all lung perez ), NORMAL BREATHING PATTERN. absent: Accessory Muscle Use, Chest Wall Tenderness, Respiratory Distress, Stridor - Cardiovascular Exam Cardiovascular Exam: REGULAR RHYTHM, +S1, +S2 - GI/Abdominal Exam GI & Abdominal Exam: Soft, Normal Bowel Sounds. absent: Firm, Guarding, Rigid, Tenderness - Back Exam Back Exam: NORMAL INSPECTION - Neurological Exam Neurological Exam: Alert, Awake, CN II-XII Intact, Normal Gait, Oriented x3 - Psychiatric Exam Psychiatric exam: Normal Affect, Normal Mood - Skin Skin Exam: Dry, Intact, Normal Color, Warm Assessment and Plan - Assessment and Plan (Free Text) Assessment: 1. Asthma exacerbation with underlying COPD * Patient was not taking inhaler for several days * Duonebs 3ml INH q4h with pre and post peak flows * CXR- Appearance suggestive of COPD/emphysema. Bilateral hilar prominence. Chronic appearing prominent interstitial markings. * Singulair 10mg PO HS * f/u ECHO * Romis negative x2 2. Rib fracture * Rib X-ray showed nondisplaced 8th rib fracture 3. Polysubstance abuse * UDS positive for methadone and cocaine * Patient counseled on cocaine cessation * Patient takes Methadone 60mg PO daily with outpt methadone program * Consulted Psych Dr Cowan- help appreciated 4. Tobacco use * Nicoderm patch 14 TD daily * Counseled on tobacco cessation 5. Prophylactic measures * Pepcid 20mg PO daily * Lovenox 40mg SC daily All management per Dr Mejia
--- NOTE | 2016-10-02 13:24 | PCM.PSYCH ---
Initial Psychiatric Evaluation - Initial Psychiatric Evaluation Type of Admission: Voluntary Legal Status: Capacity Chief Complaint (in patient's own words): "I need help" History of Present Illness and Precipitating Events: Consult request from Dr. Mejia Patient evaluated with medical student present. This is a 51 year old female, single, 6 adult children, unemployed, currently homeless. Patient is admitted for asthma attack and is seeking assistant terminal manager rehab for opioid use. Patient is on methadone maintenance at [facility]. Patient reports feeling depressed, anxious and has difficulty sleeping. States her living situation contributes to her depressed mood and makes her want to use again. Patient does not want to go to a alf due to prior experiences. She denies any suicidal ideation or homicidal ideation and denies any AVH. Past MedHx: Asthma, left rib fracture Past PsychHx: Depression, Anxiety (prescribed Xanax discontinued) Substance Use: Methadone 60mg/ daily ; Denies pills, weed, LSD Alcohol: denies Allergies: NKDA Legal: Probation 5yrs; robbery charge. Must see chief safety officer on October 08 Fam PsycHx: Parents () & Daughter Depression/Anxiety Current Medications: Active Medications Generic Name Dose Route Start Last Admin Trade Name Freq PRN Reason Stop Dose Admin Albuterol/Ipratropium 3 ml 10/01/16 16:00 10/02/16 11:27 Duoneb 3 Mg/0.5 Mg (3 Ml) Ud INH 3 ml RQ4 [facility] Administration Enoxaparin Sodium 40 mg 10/02/16 10:00 10/02/16 09:18 Lovenox SC Not Given DAILY [facility] Famotidine 20 mg 10/02/16 10:00 10/02/16 11:00 Pepcid PO 20 mg BID [facility] Administration Ibuprofen 600 mg 10/02/16 13:09 Motrin Tab PO TID PRN Pain, Mild (1-3) Methadone HCl 40 mg 10/02/16 10:00 10/02/16 09:17 Methadose PO 40 mg DAILY [facility] Administration Methadone HCl 20 mg 10/02/16 10:10/02/16 09:17 Methadone PO 20 mg DAILY [facility] Administration Montelukast Sodium 10 mg 10/02/16 22:00 Singulair PO HS [facility] Nicotine 1 patch 10/02/16 10:10/02/16 11:21 Nicoderm Cq TD 1 patch DAILY [facility] Administration Past Psychiatric History - Past Psychiatric History Previous Treatment History: None Pertinent Medical Hx (Current Medical&Sleep Prob, Allergies): Allergies Allergy/AdvReac Type Severity Reaction Status Date / Time No Known Allergies Allergy Verified 10/01/16 11:19 Methadone 60 mg PO DAILY tab 07/05/16 Albuterol HFA [Ventolin HFA 90 mcg/actuation (8 g)] 2 puff IH [id number] PRN #1 bottle 09/12/16 Albuterol 0.083% [Albuterol Sulfate 3 Ml] 3 ml IH Q4 PRN 10/01/16 Review of Systems - Review of Systems All systems: reviewed and no additional remarkable complaints except - Psychiatric Psychiatric: Anxiety, Irritability Mental Status Examination - Personal Presentation Personal Presentation: Looks stated age - Affect Affect: Constricted - Motor Activity Motor Activity: Calm - Reliability in Providing Information Reliability in Providing Information: Good - Speech Speech: Organized - Mood Mood: Anxious - Formal Thought Process Formal Thought Process: No Impairment - Obsessions/Compulsions Obsessions: No Compulsions: No - Cognitive Functions Orientation: Person, Place, Situation, Time Sensorium: Alert Attention/Concentration: Attentive Abstract Thinking: [place] Estimate of Intelligence: Below average Judgement: Imparied, as evidence by: Poor judgement, Imparied, as evidence by: Lack of insight into illness - Risk Risk: Diminished functioning - Strength & Assets Inventory Strength & Assets Inventory: Intelligence DSM 5 DX - DSM 5 DSM 5 Diagnosis: Opioid use disorder severe on agonist therapy depressive disorder - Recommended/Plan of Treatment Treatment Recommendations and Plan of Treatment: Opioid use disorder severe on agonist therapy Depressive disorder Continue Methadone Start clonidine Start trazodone - Smoking Cessation Smoking Cessation Initiated: No
[2016-10-03] MEDS: Albuterol-Ipratrop 3 mg / 0.5 (3 ml) UD INH SCH ×6 (00:21→19:24)
[2016-10-03] MEDS: Methadone 40 mg Tab PO SCH (10:01)
[2016-10-03] MEDS: Enoxaparin 40 mg Syringe SC SCH ×2 (10:01→10:04)
--- NOTE | 2016-10-03 11:11 | CP.PCM.PN ---
Subjective - Date & Time of Evaluation Date of Evaluation: 10/03/16 Time of Evaluation: 09:00 - Subjective Subjective: Medicine Progress Note Patient seen and examined. Patient is breathing comfortably on room air and states that she feels well today. Patient continues to complain of chronic dry cough. Patient denies fever, chills, chest pain, palpitations, nausea, vomiting , change in bowel movements, and dizziness. Objective - Vital Signs/Intake and Output Vital Signs (last 24 hours): Temp Pulse Resp BP Pulse Ox 97.6 F 65 18 146/89 100 10/03/16 07:30 10/03/16 07:30 10/03/16 07:30 10/03/16 07:30 10/03/16 07:30 - Medications Medications: Current Medications Albuterol/Ipratropium (Duoneb 3 Mg/0.5 Mg (3 Ml) Ud) 3 ml INH RQ4 [facility] Last Admin: 10/03/16 07:22 Dose: 3 ml Enoxaparin Sodium (Lovenox) 40 mg SC DAILY [facility] Last Admin: 10/03/16 10:04 Dose: Not Given Famotidine (Pepcid) 20 mg PO BID [facility] Last Admin: 10/03/16 10:01 Dose: 20 mg Ibuprofen (Motrin Tab) 600 mg PO TID PRN PRN Reason: Pain, Mild (1-3) Last Admin: 10/02/16 22:21 Dose: 600 mg Methadone HCl (Methadose) 40 mg PO DAILY [facility] Last Admin: 10/03/16 10:01 Dose: 40 mg Methadone HCl (Methadone) 20 mg PO DAILY [facility] Last Admin: 10/03/16 10:00 Dose: 20 mg Montelukast Sodium (Singulair) 10 mg PO [facility] Last Admin: 10/02/16 21:43 Dose: 10 mg Nicotine (Nicoderm Cq) 1 patch TD DAILY [facility] Last Admin: 10/03/16 10:00 Dose: 1 patch - Labs Labs: 10/01/16 16:50 10/01/16 16:50 - Constitutional Appears: Non-toxic, No Acute Distress - Head Exam Head Exam: ATRAUMATIC, NORMOCEPHALIC - Eye Exam Eye Exam: EOMI, Normal appearance Pupil Exam: NORMAL ACCOMODATION - ENT Exam ENT Exam: Mucous Membranes Moist, Normal Exam - Neck Exam Neck Exam: Normal Inspection - Respiratory Exam Respiratory Exam: Wheezes, NORMAL BREATHING PATTERN. absent: Accessory Muscle Use, Respiratory Distress - Cardiovascular Exam Cardiovascular Exam: REGULAR RHYTHM, +S1, +S2 - GI/Abdominal Exam GI & Abdominal Exam: Soft, Normal Bowel Sounds. absent: Firm, Guarding, Rigid - Extremities Exam Extremities Exam: Full ROM, Normal Inspection. absent: Pedal Edema - Neurological Exam Neurological Exam: Alert, Awake, Oriented x3 - Psychiatric Exam Psychiatric exam: Normal Affect, Normal Mood - Skin Skin Exam: Dry, Intact, Normal Color, Warm Assessment and Plan - Assessment and Plan (Free Text) Assessment: 1. Asthma exacerbation with underlying COPD * Patient was not taking inhaler for several days. Currently well controlled today. * Duonebs 3ml INH q4h with pre and post peak flows * CXR- Appearance suggestive of COPD/emphysema. Bilateral hilar prominence. Chronic appearing prominent interstitial markings. * Singulair 10mg PO HS * ECHO- preliminary report reads LV EF >50%. will f/u official report * Romis negative x3 2. Rib fracture * Rib X-ray showed nondisplaced 8th rib fracture * Motrin prn pain 3. Polysubstance abuse * UDS positive for methadone and cocaine * Patient counseled on cocaine cessation * Patient takes Methadone 60mg PO daily with outpt methadone program * Consulted Psych Dr Cowan- help appreciated 4. Tobacco use * Nicoderm patch 14 TD daily * Counseled on tobacco cessation 5. Prophylactic measures * Pepcid 20mg PO daily * Lovenox 40mg SC daily All management per Dr Mejia
[2016-10-03 11:54] LABS: HEMATOCRIT 37.4 % (34.0-47.0); MEAN CELL VOLUME 92.9 fL (81.0-99.0); MEAN CORPUSCULAR HEMOGLOBIN 29.9 pg (27.0-31.0); MEAN CORPUSCULAR HGB CONC 32.2 g/dL (33.0-37.0); MEAN PLATELET VOLUME 8.8 fL (7.2-11.7); RED CELL DISTRIBUTION WIDTH 15.4 % (11.5-14.5); WHITE BLOOD COUNT 7.3 K/uL (4.8-10.8)
[2016-10-03 12:17] LABS: CHLORIDE 95 mmol/L (98-107)
[2016-10-03 12:18] LABS: POTASSIUM 4.3 mmol/L (3.6-5.2); SODIUM 135 mmol/L (132-148)
[2016-10-03 12:20] LABS: ALB/GLOB RATIO 1.1 (1.0-2.1); ALKALINE PHOSPHATASE 65 U/L (38-126); ALT/SGPT 23 U/L (9-52); AST/SGOT 21 U/L (14-36); BILIRUBIN,TOTAL 0.3 mg/dL (0.2-1.3); BLOOD UREA NITROGEN 13 mg/dL (7-17); CARBON DIOXIDE 28 mmol/L (22-30); GFR AFRICAN-AMERICAN > 60; TOTAL PROTEIN 6.1 g/dL (6.3-8.3)
[2016-10-03 12:21] LABS: CALCIUM 8.3 mg/dl (8.6-10.4); GLUCOSE,RANDOM 98 mg/dL (65-105)
[2016-10-04] MEDS: Albuterol-Ipratrop 3 mg / 0.5 (3 ml) UD INH SCH ×4 (00:21→13:00)
[2016-10-04 08:14] VITALS: BP 144/84; PULSE 65; RESP 18; TEMP 98.1; O2SAT 95
[2016-10-04] MEDS: Methadone 40 mg Tab PO SCH (08:59)
[2016-10-04] MEDS: Enoxaparin 40 mg Syringe SC SCH (09:00)
--- NOTE | 2016-10-04 09:16 | CP.PCM.PN ---
Subjective - Date & Time of Evaluation Date of Evaluation: 10/04/16 Time of Evaluation: 09:14 - Subjective Subjective: Medicine Note- Dr Mejia's service Patient seen and examined. Patient is breathing well on room air. Denies chest pain, shortness of breath, palpitations, weakness, and headache. Patient is to be discharged today per Dr Mejia. Patient should follow up with Dr Mejia in his office within 1 week for management of her asthma. Patient should take the following medications at home: Ventolin Inhaler Singulair 10mg at night Patient should return to the ED if she experiences recurrence of her symptoms. Instructions were explained to the patient who understands. The patient will be given a list of shelters she can go to. Objective - Vital Signs/Intake and Output Vital Signs (last 24 hours): Temp Pulse Resp BP Pulse Ox 98.1 F 65 18 144/84 95 10/04/16 07:12 10/04/16 07:12 10/04/16 07:12 10/04/16 07:12 10/04/16 07:12 - Medications Medications: Current Medications Albuterol/Ipratropium (Duoneb 3 Mg/0.5 Mg (3 Ml) Ud) 3 ml INH RQ4 [facility] Last Admin: 10/04/16 07:41 Dose: Not Given Enoxaparin Sodium (Lovenox) 40 mg SC DAILY [facility] Last Admin: 10/04/16 09:00 Dose: Not Given Famotidine (Pepcid) 20 mg PO BID [facility] Last Admin: 10/04/16 08:59 Dose: 20 mg Ibuprofen (Motrin Tab) 600 mg PO TID PRN PRN Reason: Pain, Mild (1-3) Last Admin: 10/03/16 16:52 Dose: 600 mg Methadone HCl (Methadose) 40 mg PO DAILY [facility] Last Admin: 10/04/16 08:59 Dose: 40 mg Methadone HCl (Methadone) 20 mg PO DAILY [facility] Last Admin: 10/04/16 08:59 Dose: 20 mg Montelukast Sodium (Singulair) 10 mg PO HS [facility] Last Admin: 10/03/16 22:53 Dose: Not Given Nicotine (Nicoderm Cq) 1 patch TD DAILY [facility] Last Admin: 10/04/16 09:00 Dose: 1 patch - Labs Labs: 10/03/16 11:45 10/03/16 11:45 - Constitutional Appears: Well, Non-toxic, No Acute Distress - Head Exam Head Exam: ATRAUMATIC, NORMOCEPHALIC - Eye Exam Eye Exam: EOMI, Normal appearance - ENT Exam ENT Exam: Mucous Membranes Moist - Neck Exam Neck Exam: Normal Inspection - Respiratory Exam Respiratory Exam: Wheezes, NORMAL BREATHING PATTERN. absent: Accessory Muscle Use, Chest Wall Tenderness, Decreased Breath Sounds, Clear to Ausculation Bilateral, Rales, Respiratory Distress, Stridor - Cardiovascular Exam Cardiovascular Exam: REGULAR RHYTHM, +S1, +S2 - GI/Abdominal Exam GI & Abdominal Exam: Soft, Normal Bowel Sounds - Extremities Exam Extremities Exam: Full ROM, Normal Inspection. absent: Pedal Edema - Neurological Exam Neurological Exam: Alert, Awake, Normal Gait, Oriented x3 - Psychiatric Exam Psychiatric exam: Normal Affect, Normal Mood - Skin Skin Exam: Dry, Intact, Normal Color, Warm Assessment and Plan - Assessment and Plan (Free Text) Assessment: 1. Asthma exacerbation with underlying COPD * Patient was not taking inhaler for several days. Currently well controlled today. * Duonebs 3ml INH q4h with pre and post peak flows * CXR- Appearance suggestive of COPD/emphysema. Bilateral hilar prominence. Chronic appearing prominent interstitial markings. * Singulair 10mg PO HS * ECHO- preliminary report reads LV EF >50%. will f/u official report * Romis negative x3 2. Rib fracture * Rib X-ray showed nondisplaced 8th rib fracture * Motrin prn pain 3. Polysubstance abuse * UDS positive for methadone and cocaine * Patient counseled on cocaine cessation * Patient takes Methadone 60mg PO daily with outpt methadone program * Consulted Psych Dr Cowan- help appreciated 4. Tobacco use * Nicoderm patch 14 TD daily * Counseled on tobacco cessation 5. Prophylactic measures * Pepcid 20mg PO daily * Lovenox 40mg SC daily * Discharge pending to senior living All management per Dr Mejia
--- NOTE | 2016-10-04 13:09 | CARD ---
APPROVED REPORT EKG Measurement Heart [id number] <Conclusion> Normal sinus rhythm Voltage criteria for left ventricular hypertrophy Abnormal ECG
--- NOTE | 2016-10-14 13:16 | CARD ---
APPROVED REPORT EKG Measurement Heart [id number] [place] 154P71 [id number] <Conclusion> Normal sinus rhythm Moderate voltage criteria for LVH, may be normal variant Borderline ECG
--- NOTE | 2016-10-18 07:43 | CARD ---
APPROVED REPORT EXAM: Two-dimensional and M-mode echocardiogram with Doppler and color Doppler. Other Information Quality : GoodRhythm : NSR INDICATION Dyspnea Chest Pain Congestive Heart Failure COPD 2D DIMENSIONS IVSd1.0 (0.7-1.1cm)LVDd4.5 (3.9-5.9cm) LVOT Diameter1.8 (1.8-2.4cm)PWd0.8 (0.7-1.1cm) IVSs1.4 (0.8-1.2cm)LVDs2.7 (2.5-4.0cm) FS (%) 40.3 %PWs1.5 (0.8-1.2cm) LVEF (%)71.1 (>50%) M-Mode DIMENSIONS RVDd1.09 (2.1-3.2cm)Left Atrium (MM)4.06 (2.5-4.0cm) IVSd0.67 (0.7-1.1cm)Aortic Root2.50 (2.2-3.7cm) LVDd5.69 (4.0-5.6cm)Aortic Cusp Exc.1.56 (1.5-2.0cm) PWd0.76 (0.7-1.1cm)FS (%) 39 % LVDs3.49 (2.0-3.8cm)LVEF (%)68 (>50%) Aortic Valve AoV Peak Cpvbrrkb843.9cm/Stone Peak GR.11mmHgLVOT Peak Netivrqe299.4cm/s ANTIONE (VMAX)1.72cm2 Mitral Valve MV E Nzhavheg79.2cm/sMV A Uypaqxjm08.6cm/sE/A ratio1.3 TDI E/Lateral E'0.0E/Medial E'0.0 Pulmonary Valve PV Peak Lcbaxrxc272.3cm/sPV Peak Grad.5mmHg Tricuspid Valve TR Peak Ubedzssw990rb/sTR Peak Gr.98shHuEJQN89zzKx LEFT VENTRICLE The left ventricle is normal size. There is normal left ventricular wall thickness. Left ventricle systolic function is normal. The Ejection Fraction is >70%. There is normal LV segmental wall motion. The left ventricular diastolic function is normal. RIGHT VENTRICLE The right ventricle is normal size. There is normal right ventricular wall thickness. The right ventricular systolic function is normal. ATRIA The left atrium is mildly dilated. The right atrium size is normal. The interatrial septum is intact with no evidence for an atrial septal defect. AORTIC VALVE The aortic valve is normal in structure. No aortic regurgitation is present. There is no aortic valvular stenosis. There is no aortic valvular vegetation. MITRAL VALVE The mitral valve is normal in structure. There is no evidence of mitral valve prolapse. There is no mitral valve stenosis. Mitral regurgitation is trace. TRICUSPID VALVE The tricuspid valve is normal in structure. There is mild to moderate tricuspid regurgitation. Right ventricular systolic pressure is estimated at 40-50 mmHg. There is mild-moderate pulmonary hypertension. PULMONIC VALVE The pulmonic valve is not well visualized. There is no pulmonic valvular regurgitation. GREAT VESSELS The aortic root is normal in size. PERICARDIAL EFFUSION There is no significant pericardial effusion. <Conclusion> Left ventricle systolic function is normal. The Ejection Fraction is >70%. No aortic regurgitation is present. Mitral regurgitation is trace. There is mild to moderate tricuspid regurgitation. There is mild-moderate pulmonary hypertension. There is no pulmonic valvular regurgitation.
--- NOTE | 2016-11-12 11:58 | DS ---
HISTORY OF PRESENT ILLNESS: The patient is admitted to the hospital with chief complaint of generalized weakness, fatigue, tiredness. The patient came to the ER, advised admission. Treated with bedrest, supportive care. The patient showed improvement and discharged to be followed as an outpatient. Bryan Mejia MD
== END 2016-10-04 13:28 | disposition home or self-care (01) ==
LOC: C.ER 11:12 → C.9E 13:22 → C.6T 13:54
PROVIDERS: ADMIT Internal Medicine Pulmonary Disease; ATTEND Internal Medicine Pulmonary Disease
DX: J45.901 Unspecified asthma with (acute) exacerbation (principal); J44.1 Chronic obstructive pulmonary disease with (acute) exacerbation; F41.9 Anxiety disorder, unspecified; F14.10 Cocaine abuse, uncomplicated; F11.20 Opioid dependence, uncomplicated; Z59.0 Homelessness; Z72.0 Tobacco use; F32.9 Major depressive disorder, single episode, unspecified; S22.32XA Fracture of one rib, left side, initial encounter for closed fracture; W19.XXXA Unspecified fall, initial encounter; Y92.009 Unspecified place in unspecified non-institutional (private) residence as the place of occurrence of the external cause; Z68.20 Body mass index [BMI] 20.0-20.9, adult
CPT/HCPCS: 36415; 71010; 71101; 80053; 80324; 80345; 80346; 80349; 80353; 80358; 80361; 83992; 84484; 85027; 93005; 93306; 94150; 94640; 96365; 96366; 99285; G0378; J3475

== ENCOUNTER 2016-10-06 14:20 | Inpatient (IN) | payer MEDICAID ==
[2016-10-06 14:21] VITALS: BMI 20.1
[2016-10-06] MEDS ORDERED: Magnesium Sulfate 1 gm in D5W 1 GM/100 ML BAG IVPB STA (14:38)
[2016-10-06] MEDS ORDERED: Albuterol-Ipratrop 3 mg / 0.5 (3 ml) UD INH STA ×3 (14:38→20:06)
[2016-10-06] MEDS ORDERED: Magnesium Sulfate 1 gm in D5W 1 GM/100 ML BAG IV ONE (14:42)
[2016-10-06] MEDS ORDERED: Albuterol 0.083% Inhal Sol (2.5 mg/3 mL) UD IH STA ×3 (14:42→15:44)
[2016-10-06] MEDS ORDERED: Albuterol-Ipratrop 3 mg / 0.5 (3 ml) UD ONE ×2 (14:48→16:15)
[2016-10-06 14:59] LABS: ABG ALLEN TEST POS; ARTERIAL BLOOD GAS HCO3 24.7 mmol/L (21-28); ARTERIAL BLOOD GAS O2 SAT 98.3 % (95-98); ARTERIAL BLOOD GAS PCO2 44 mm/Hg (35-45); ARTERIAL BLOOD GAS PH 7.37 (7.35-7.45); ARTERIAL BLOOD GAS PO2 81 mm/Hg (80-100); ARTERIAL BLOOD GAS TCO2 26.8 mmol/L (22-28)
[2016-10-06 15:05] LABS: BASO % 0.5 % (0.0-2.0); EOS # 0.1 K/uL (0.0-0.7); EOS % 2.3 % (0.0-4.0); HEMOGLOBIN 12.2 g/dL (11.0-16.0); LYMPH # 2.2 K/uL (1.0-4.3); LYMPH % 34.6 % (20.0-40.0); MEAN CORPUSCULAR HEMOGLOBIN 30.8 pg (27.0-31.0); MEAN CORPUSCULAR HGB CONC 33.5 g/dL (33.0-37.0); MEAN PLATELET VOLUME 8.1 fL (7.2-11.7); MONO # 0.7 K/uL (0.0-0.8); MONO % 11.1 % (0.0-10.0); NEUT # 3.3 K/uL (1.8-7.0); NEUT % 51.5 % (50.0-75.0); RBC 3.95 Mil/uL (3.80-5.20); RED CELL DISTRIBUTION WIDTH 14.5 % (11.5-14.5); WHITE BLOOD COUNT 6.3 K/uL (4.8-10.8)
--- NOTE | 2016-10-06 15:06 | RAD ---
PROCEDURE: CHEST RADIOGRAPH, 1 VIEW HISTORY: Shortness of breath COMPARISON: 10/01/2016. FINDINGS: LUNGS: The lungs are hyperinflated and there is peribronchial thickening with chronic changes in both lungs. No lobar pneumonia. PLEURA: No pneumothorax or pleural fluid seen. CARDIOVASCULAR: Normal. OSSEOUS STRUCTURES: No significant abnormalities. VISUALIZED UPPER ABDOMEN: Normal. OTHER FINDINGS: None. IMPRESSION: No active pulmonary disease. COPD.
[2016-10-06] MEDS ORDERED: Magnesium Sulfate 1 gm in D5W 1 GM/100 ML BAG IVPB ONE (15:09)
[2016-10-06 15:14] LABS: ALBUMIN 3.5 g/dL (3.5-5.0)
[2016-10-06 15:17] LABS: ALB/GLOB RATIO 1.2 (1.0-2.1); ALT/SGPT 34 U/L (9-52); AST/SGOT 31 U/L (14-36); BLOOD UREA NITROGEN 15 mg/dL (7-17); CALCIUM 8.3 mg/dl (8.6-10.4); GFR AFRICAN-AMERICAN > 60; GFR NON-AFRICAN AMERICAN > 60
[2016-10-06 15:27] LABS: CK-MB 3.11 ng/mL (0.0-3.38)
[2016-10-06] MEDS ORDERED: Albuterol 0.083% Inhal Sol (2.5 mg/3 mL) UD ONE ×2 (15:33→16:15)
--- NOTE | 2016-10-06 16:13 | C.PDOC ---
Time Seen by Provider: 10/06/16 14:26 Chief Complaint (Nursing): Respiratory Distress Past Medical History Vital Signs: Last Vital Signs Temp 97.5 F L 10/06/16 14:20 Pulse 70 10/06/16 14:20 Resp 19 10/06/16 14:25 BP 117/81 10/06/16 14:20 Pulse Ox 99 10/06/16 14:20 - Medical History PMH: Asthma, Back Problems, Bronchitis, COPD, Kidney Stones (RIGHT), Chronic Kidney Disease Denies: Diabetes, Hepatitis, HIV, HTN, Seizures, Sexually Transmitted Disease - [facility] Procedures CLOSURE SKIN & SUBCUTANEOUS NEC (04/25/13) DETOXIFICATION SERVICES FOR SUBSTANCE ABUSE TREATMENT (05/23/16) INDIV PSYCHOTHERAPY FOR SUBSTANCE ABUSE TREATMENT, SUPPORT (05/23/16) INJECT/INFUSE NEC (06/22/14) INTRODUCTION OF ANTI-INFLAM INTO RESP TRACT, VIA OPENING (03/16/15) INTRODUCTION OF SERUM/TOX/VACCINE INTO MUSCLE, PERC APPROACH (03/16/15) MEDICATION MANAGEMENT (05/23/16) MEDS MGMT FOR SUBSTANCE ABUSE TREATMENT, METHADONE MAINT (05/23/16) NEBULIZER THERAPY (06/22/14) TETANUS TOXOID ADMINIST (04/25/13) Family History: States: Unknown Family Hx - Social History Hx Tobacco Use: Yes Hx Alcohol Use: No Hx Substance Use: Yes (SNIFFS HERONE 8-9 BAGS DAILY.LAST USED YESTERDAY.) - Immunization History Hx Tetanus Toxoid Vaccination: Yes Hx Influenza Vaccination: Yes Hx Pneumococcal Vaccination: Yes ED Course And Treatment - Laboratory Results Result Diagrams: 10/06/16 15:02 10/06/16 15:02 O2 Sat by Pulse Oximetry: 99 - Other Rad cxr X-Ray: Viewed By Me, Read By Radiologist Interpretation: Accession No. : [id number]. Patient Name / ID : NAVI MEDEIROS / [id number]. Exam Date : 10/06/2016 14:50:03 ( Approved ). Study Comment : Sex / Age : F / 51Y. Creator : GAUTAM WILLIS MD. Dictator : GAUTAM WILLIS MD. Induction Coordination Engineer : Lockstitch Coat Joiner : GAUTAM WILLIS MD. Approver2 : Report Date : 10/06/2016 15:04:10. My Comment : . PROCEDURE: CHEST RADIOGRAPH, 1 VIEW. HISTORY: Shortness of breath. COMPARISON: 10/01/2016. FINDINGS: LUNGS: The lungs are hyperinflated and there is peribronchial thickening with chronic changes in both lungs. No lobar pneumonia. PLEURA: No pneumothorax or pleural fluid seen. CARDIOVASCULAR: Normal. OSSEOUS STRUCTURES: No significant abnormalities. VISUALIZED UPPER ABDOMEN: Normal. OTHER FINDINGS: None. IMPRESSION: No active pulmonary disease. COPD. Disposition - Disposition Forms: [employer] ([employer])
--- NOTE | 2016-10-06 16:14 | C.PDOC ---
History Of Present Illness 51-year-old female presents to the emergency department with complaints of wheezing and shortness of breath that started earlier today. Patient has a Hx of asthma/COPD, no prior intubations. She has had multiple admissions for asthma/copd, was discharged from hospital yesterday for same. Patient admits to productive cough, but denies fever, chest pain, palpitations. Time Seen by Provider: 10/06/16 14:26 Chief Complaint (Nursing): Respiratory Distress History Per: Patient History/Exam Limitations: no limitations Current Symptoms Are (Timing): Still Present Severity: Moderate Past Medical History Reviewed: Historical Data, Nursing Documentation, Vital Signs Vital Signs: Last Vital Signs Temp 98.0 F 10/07/16 07:30 Pulse 70 10/07/16 07:30 Resp 70 H 10/07/16 07:30 BP 111/64 10/07/16 07:30 Pulse Ox 18 L 10/07/16 07:30 - Medical History PMH: Asthma, Back Problems, Bronchitis, COPD, Kidney Stones (RIGHT), Chronic Kidney Disease - [facility] Procedures CLOSURE SKIN & SUBCUTANEOUS NEC (04/25/13) DETOXIFICATION SERVICES FOR SUBSTANCE ABUSE TREATMENT (05/23/16) INDIV PSYCHOTHERAPY FOR SUBSTANCE ABUSE TREATMENT, SUPPORT (05/23/16) INJECT/INFUSE NEC (06/22/14) INTRODUCTION OF ANTI-INFLAM INTO RESP TRACT, VIA OPENING (03/16/15) INTRODUCTION OF SERUM/TOX/VACCINE INTO MUSCLE, PERC APPROACH (03/16/15) MEDICATION MANAGEMENT (05/23/16) MEDS MGMT FOR SUBSTANCE ABUSE TREATMENT, METHADONE MAINT (05/23/16) NEBULIZER THERAPY (06/22/14) TETANUS TOXOID ADMINIST (04/25/13) Family History: States: No Known Family Hx - Social History Hx Tobacco Use: Yes Hx Alcohol Use: No Hx Substance Use: Yes (SNIFFS HERONE 8-9 BAGS DAILY.LAST USED YESTERDAY.) - Immunization History Hx Tetanus Toxoid Vaccination: Yes Hx Influenza Vaccination: Yes Hx Pneumococcal Vaccination: Yes Review Of Systems Except As Marked, All Systems Reviewed And Found Negative. Constitutional: Negative for: Fever, Chills Cardiovascular: Negative for: Chest Pain, Palpitations Respiratory: Positive for: Cough, Shortness of Breath, Wheezing. Negative for: Sputum Gastrointestinal: Negative for: Nausea, Vomiting, Abdominal Pain Musculoskeletal: Negative for: Back Pain Neurological: Negative for: Weakness, Numbness Physical Exam - Physical Exam Appears: Well, Non-toxic, Other (audibly wheezing, in mild respiratory distress) Skin: Normal Color, Warm, Dry, No Rash Eye(s): bilateral: Normal Inspection Oral Mucosa: Moist Throat: Normal, No Erythema, No Exudate Neck: Normal, Normal ROM Cardiovascular: Rhythm Regular Respiratory: Accessory Muscle Use (Mild), No Rales, No Rhonchi, Wheezing ( Diffuse expiratory wheezing B/L) Gastrointestinal/Abdominal: Normal Exam, Bowel Sounds, Soft, No Tenderness Extremity: Normal ROM, No Pedal Edema, No Calf Tenderness Neurological/Psych: Oriented x3 ED Course And Treatment - Laboratory Results Result Diagrams: 10/06/16 15:02 10/06/16 15:02 ECG: Interpreted By Me, Viewed By Me (NSR 64 bpm, normal axis, no acute ST/T wave changes) ECG Interpretation: Normal O2 Sat by Pulse Oximetry: 99 (on RA) Pulse Ox Interpretation: Normal - Other Rad CXR X-Ray: Viewed By Me, Read By Radiologist Interpretation: Accession No. : [id number]. Patient Name / ID : NAVI MEDEIROS / [id number]. Exam Date : 10/06/2016 14:50:03 ( Approved ). Study Comment : Sex / Age : F / 51Y. Creator : GAUTAM WILLIS MD. Dictator : GAUTAM WILLIS MD. Director College : Power Electronics Engineer : GAUTAM WILLIS MD. Approver2 : Report Date : 10/06/2016 15:04:10. My Comment : . PROCEDURE: CHEST RADIOGRAPH, 1 VIEW. HISTORY: Shortness of breath. COMPARISON: 10/01/2016. FINDINGS: LUNGS: The lungs are hyperinflated and there is peribronchial thickening with chronic changes in both lungs. No lobar pneumonia. PLEURA: No pneumothorax or pleural fluid seen. CARDIOVASCULAR: Normal. OSSEOUS STRUCTURES: No significant abnormalities. VISUALIZED UPPER ABDOMEN: Normal. OTHER FINDINGS: None. IMPRESSION: No active pulmonary disease. COPD. Progress Note: Blood work, CXR, EKG ordered and reviewed. Patient given IV solumedrol, duoneb/albuterol treatments, IV magnesium sulfate 2G. Reevaluation Time: 16:30 Reassessment Condition: Improved (On reassessment, patient only minimally improved after IV solumedrol, IV magnesium sulfate 2g and multiple rounds of nebulizer treatments. She has diffuse expiratory wheezing B/L without accessory muscle use. Will need admission for asthma/copd exacerbation.) - Physician Consult Information Physician Contacted: Bryan Mejia Outcome Of Conversation: Discussed patient with PMD, he agrees with admission for copd/asthma exacerbation. Critical Care Time - Critical Care Note Total Time (in mins): 35 Documented critical care: time excludes all time spent performing seperately billable procedures. Medical Decision Making Medical Decision Making: differential diagnoses considered: asthma/copd exacerbation, pneumonia, CHF, [place]/ ACS, bronchitis, PE Disposition - Disposition Disposition: HOSPITALIZED Disposition Time: 16:29 Condition: STABLE - Clinical Impression Clinical Impression: COPD exacerbation, Asthma - Scribe Statement The provider has reviewed the documentation as recorded by the Scribe (Zoila Bennett) All medical record entries made by the Scribe were at my direction and personally dictated by me. I have reviewed the chart and agree that the record accurately reflects my personal performance of the history, physical exam, medical decision making, and the department course for this patient. I have also personally directed, reviewed, and agree with the discharge instructions and disposition. Decision To Admit - Pt Status Changed To: Hospital Disposition Of: Observation - . Bed Request Type: Telemetry Admitting Physician: Bryan Mejia Patient Diagnosis: COPD exacerbation, Asthma
[2016-10-06 16:37] LABS: SQUAMOUS EPITHIAL < 1 /hpf (0-5); URINE BILIRUBIN NEGATIVE (NEGATIVE); URINE BLOOD NEGATIVE (NEGATIVE); URINE CLARITY Clear (Clear); URINE COLOR Straw (YELLOW); URINE GLUCOSE (UA) NORMAL (Normal); URINE LEUKOCYTE ESTERASE NEG Leu/uL (Negative); URINE NITRATE NEGATIVE (NEGATIVE); URINE PROTEIN NEGATIVE (NEGATIVE); URINE UROBILINOGEN NORMAL mg/dL (0.2-1.0)
[2016-10-06 16:39] LABS: HCG,QUALITATIVE URINE NEGATIVE (NEGATIVE)
[2016-10-07] MEDS ORDERED: Albuterol-Ipratrop 3 mg / 0.5 (3 ml) UD INH STA (00:45)
[2016-10-07 08:14] VITALS: BP 111/64; PULSE 70; RESP 70; TEMP 98
--- NOTE | 2016-10-07 13:50 | CARD ---
APPROVED REPORT EKG Measurement Heart [id number] [place] 160P72 [id number] <Conclusion> Normal sinus rhythm Moderate voltage criteria for LVH, may be normal variant Borderline ECG
--- NOTE | 2016-10-07 15:31 | CP.PCM.PN ---
Subjective - Date & Time of Evaluation Date of Evaluation: 10/07/16 Time of Evaluation: 15:28 - Subjective Subjective: Medicine progress note for Dr. Mejia's service Pt seen and examined at bedside. She states that she is doing much better this morning at that she is no longer wheezing. She denies F/C/N/V/D/C/CP/SOB. She states that she normally gets 60mg of methadone from her clinic in [place] daily but that yesterday she took part in recreational heroin use. Objective - Vital Signs/Intake and Output Vital Signs (last 24 hours): Temp Pulse Resp BP Pulse Ox 98.0 F 70 70 H 111/64 18 L 10/07/16 07:30 10/07/16 07:30 10/07/16 07:30 10/07/16 07:30 10/07/16 07:30 Intake and Output: 10/07/16 10/07/16 06:59 18:59 Intake Total 1010 Balance 1010 - Constitutional Appears: No Acute Distress, Agitated - Head Exam Head Exam: ATRAUMATIC - Eye Exam Eye Exam: EOMI, Normal appearance - ENT Exam ENT Exam: Mucous Membranes Moist - Respiratory Exam Respiratory Exam: NORMAL BREATHING PATTERN. absent: Wheezes - Cardiovascular Exam Cardiovascular Exam: REGULAR RHYTHM, +S1, +S2 - Neurological Exam Neurological Exam: Alert, Awake, Oriented x3 Assessment and Plan - Assessment and Plan (Free Text) Plan: Acute asthma exacerbation Symptoms are currently resolved Resume use of Ventolin inhaler as needed Drug abuse 60mg of methadone x 1 dose given Pt will need to return to outpatient methadone clinic for further detox. Discharge planning for home. Patient will resume use of ventolin prn. She is to return to the hospital with any acute/worsening symtoms. She is to resume detox at [facility]. case discussed with Dr. Mejia. All management as per Dr. Mejia.
[2016-10-09 18:48] VITALS: O2SAT 99
== END 2016-10-07 15:00 | disposition home or self-care (01) | DRG 88 ==
LOC: C.ER 14:20 → C.9E 16:29 → C.6T 17:02
PROVIDERS: ADMIT Internal Medicine Pulmonary Disease; ATTEND Internal Medicine Pulmonary Disease
DX: J44.1 Chronic obstructive pulmonary disease with (acute) exacerbation (principal); J45.901 Unspecified asthma with (acute) exacerbation; F11.20 Opioid dependence, uncomplicated; N18.9 Chronic kidney disease, unspecified; F17.210 Nicotine dependence, cigarettes, uncomplicated; Z87.442 Personal history of urinary calculi; Z59.0 Homelessness

== ENCOUNTER 2017-10-11 13:41 | Inpatient (IN) | payer MEDICAID, OTHER ==
[2017-10-11 13:41] VITALS: BMI 27.4
[2017-10-11] MEDS ORDERED: Albuterol-Ipratrop 3 mg / 0.5 (3 ml) UD INH STA ×4 (13:51→15:53)
[2017-10-11] MEDS ORDERED: Albuterol-Ipratrop 3 mg / 0.5 (3 ml) UD ONE ×3 (13:57→15:27)
[2017-10-11 14:53] LABS: BASO # 0.1 K/uL (0.0-0.2); BASO % 0.6 % (0.0-2.0); EOS # 0.1 K/uL (0.0-0.7); EOS % 0.9 % (0.0-4.0); HEMOGLOBIN 12.5 g/dL (11.0-16.0); LYMPH % 24.6 % (20.0-40.0); MEAN CELL VOLUME 94.8 fL (81.0-99.0); MEAN CORPUSCULAR HEMOGLOBIN 31.4 pg (27.0-31.0); MEAN CORPUSCULAR HGB CONC 33.1 g/dL (33.0-37.0); MEAN PLATELET VOLUME 8.9 fL (7.2-11.7); MONO % 7.9 % (0.0-10.0); NEUT # 8.2 K/uL (1.8-7.0); RBC 3.97 Mil/uL (3.80-5.20); RED CELL DISTRIBUTION WIDTH 13.4 % (11.5-14.5); WHITE BLOOD COUNT 12.4 K/uL (4.8-10.8)
[2017-10-11] MEDS ORDERED: Azithromycin 500 MG in Sodium Chloride 0.9% 250 ML IVPB STA (14:56)
[2017-10-11 15:09] LABS: CALCIUM 8.5 mg/dl (8.6-10.4); GFR AFRICAN-AMERICAN > 60; GFR NON-AFRICAN AMERICAN > 60
[2017-10-11 15:11] LABS: ALB/GLOB RATIO 1.6 (1.0-2.1); ALT/SGPT 29 U/L (9-52); AST/SGOT 46 U/L (14-36); BLOOD UREA NITROGEN 18 mg/dL (7-17)
--- NOTE | 2017-10-11 15:12 | C.PDOC ---
History Of Present Illness 52 year old female presents to the ED complaining of exacerbation of asthma intermittently for one week. Associated symptoms include cough, sore throat, and SOB. Denies any fever, chills, dizziness, chest pain, n/v/d. Time Seen by Provider: 10/11/17 14:32 Chief Complaint (Nursing): Shortness Of Breath History Per: Patient History/Exam Limitations: no limitations Onset/Duration Of Symptoms: Days Current Symptoms Are (Timing): Still Present Associated Symptoms: Productive Cough. denies: Fever, Chills Past Medical History Reviewed: Historical Data, Nursing Documentation, Vital Signs Vital Signs: Last Vital Signs Temp 98.1 F 10/11/17 13:48 Pulse 82 10/11/17 13:48 Resp 16 10/11/17 13:48 BP 141/92 H 10/11/17 13:48 Pulse Ox 94 L 10/11/17 15:15 - Medical History PMH: Anxiety, Asthma, Back Problems, Bronchitis, COPD, Kidney Stones (RIGHT), Chronic Kidney Disease Denies: HIV, HTN, Seizures, Sexually Transmitted Disease Other Surgeries: Hx of surgery - [facility] Procedures CLOSURE SKIN & SUBCUTANEOUS NEC (04/25/13) DETOXIFICATION SERVICES FOR SUBSTANCE ABUSE TREATMENT (05/23/16) INDIV PSYCHOTHERAPY FOR SUBSTANCE ABUSE TREATMENT, SUPPORT (05/23/16) INJECT/INFUSE NEC (06/22/14) INTRODUCTION OF ANTI-INFLAM INTO RESP TRACT, VIA OPENING (03/16/15) INTRODUCTION OF SERUM/TOX/VACCINE INTO MUSCLE, PERC APPROACH (03/16/15) MEDICATION MANAGEMENT (05/23/16) MEDS MGMT FOR SUBSTANCE ABUSE TREATMENT, METHADONE MAINT (05/23/16) NEBULIZER THERAPY (06/22/14) TETANUS TOXOID ADMINIST (04/25/13) Family History: States: No Known Family Hx - Social History Hx Tobacco Use: Yes (3-4 cigarettes a day) Hx Alcohol Use: No Hx Substance Use: No (pt reports clean off heroine x1year) - Immunization History Hx Tetanus Toxoid Vaccination: Yes Hx Influenza Vaccination: Yes Hx Pneumococcal Vaccination: Yes Review Of Systems Except As Marked, All Systems Reviewed And Found Negative. ENT: Positive for: Throat Pain Respiratory: Positive for: Cough, Shortness of Breath Physical Exam - Physical Exam Appears: Non-toxic, No Acute Distress Skin: Warm, Dry Head: Atraumatic, Normacephalic Eye(s): bilateral: Normal Inspection Nose: Normal Oral Mucosa: Moist Neck: Supple Chest: Symmetrical Cardiovascular: Rhythm Regular, No Murmur Respiratory: Wheezing (Expiratory wheezes B/L ) Gastrointestinal/Abdominal: Soft, No Tenderness, No Guarding Extremity: Bilateral: Atraumatic, Normal Color And Temperature, Normal ROM Neurological/Psych: Oriented x3, Normal Speech Gait: Steady ED Course And Treatment - Laboratory Results Result Diagrams: 10/11/17 14:48 10/11/17 14:48 O2 Sat by Pulse Oximetry: 94 (RA) Medical Decision Making Medical Decision Making: Impression: exacerbation of asthma Plan: - Labs - Neb Treatment - CXR - Solumedrol 125mg IV - Rocephin - Zithromax 1607 - patient states she still feels tight. Case discussed with Dr. Pedro Luis Kunz and will admit to medical surgical observation cxr - preliminary reading demonstrates increased interstitial markings. Disposition Discussed With Dr.: Pedro Luis Kunz Doctor Will See Patient In The: Hospital Counseled Patient/Family Regarding: Studies Performed, Diagnosis - Disposition Disposition: HOSPITALIZED Disposition Time: 16:08 Condition: FAIR Forms: [facility] ([place]i) - Clinical Impression Clinical Impression: Exacerbation of asthma, Bronchitis - Scribe Statement The provider has reviewed the documentation as recorded by the Scribe Stefania Mccartney All medical record entries made by the Scribe were at my direction and personally dictated by me. I have reviewed the chart and agree that the record accurately reflects my personal performance of the history, physical exam, medical decision making, and the department course for this patient. I have also personally directed, reviewed, and agree with the discharge instructions and disposition.
[2017-10-11 15:18] LABS: B-TYPE NATRIURETIC PEPTIDE 207 pg/mL (0-900)
[2017-10-11] MEDS ORDERED: cefTRIAXone IV 1 gm in Dextros 50 ML IVPB ONE (15:21)
[2017-10-11] MEDS ORDERED: Magnesium Sulfate 1 gm in D5W 1 GM/100 ML BAG IVPB ONE ×2 (16:05→16:11)
--- NOTE | 2017-10-11 17:02 | CP.PCM.HP ---
History of Present Illness - History of Present Illness History of Present Illness: Resident Note for Dr. Kunz Patient is a 52 year old female with past medical history of asthma, anxiety, nephrolithiasis presenting with chief complaint of shortness of breath that began a few days prior accompanied by cough and sore throat. She states that she she has a history of being admitted for COPD exacerbations and was recently discharged from [facility] for the same issue. She states that she didn't want to be at the hospital and so she left. She uses her inhaler three times a day (morning, afternoon, night). She denies ever being intubated in the past. She denies having pets at home. She denies having ceiling fans in her home. Denies headache, dizziness, nausea, vomiting, chest pain, abdominal pain, changes in bowel movements, dysuria. The last time she was seen by PMD Dr. Mejia was two months prior. Past medical: asthma, anxiety, nephrolithiasis s/p lithotripsy Past surgical: lithotripsy Allergies: NKDA Home medications: seroquel 300 mg TID Social history: Denies alcohol use. Smokes 2 cigarettes a day for the past 5 years. Denies current recreational drug use. Former heroin user- last use was in 2017. Family history: [facility] PMD: Dr. Mejia Advanced directive: none Full code Proxy: Rory Berry (boyfriend). [phone] Present on Admission - Present on Admission Any Indicators Present on Admission: No Review of Systems - Constitutional Constitutional: absent: Fever, Headache - EENT Eyes: absent: Change in Vision Ears: absent: Abnormal Hearing Nose/Mouth/Throat: Sore Throat - Cardiovascular Cardiovascular: absent: Chest Pain, Palpitations - Respiratory Respiratory: Cough, Dyspnea - Gastrointestinal Gastrointestinal: absent: Abdominal Pain, Constipation, Diarrhea - Genitourinary Genitourinary: absent: Dysuria - Neurological Neurological: absent: Dizziness, Syncope Past Patient History - Infectious Disease Hx of Infectious Diseases: None - Past Medical History & Family History Past Medical History?: Yes - Past Social History Smoking Status: Heavy Smoker > 10 Cigarettes Daily - CARDIAC Hx Hypertension: No - PULMONARY Hx Asthma: Yes Hx Bronchitis: Yes Hx Chronic Obstructive Pulmonary Disease (COPD): Yes - NEUROLOGICAL Hx Seizures: No - HEENT Hx HEENT Problems: No - RENAL Hx Chronic Kidney Disease: Yes Hx Kidney Stones: Yes (RIGHT) - ENDOCRINE/METABOLIC Hx Endocrine Disorders: No - HEMATOLOGICAL/ONCOLOGICAL Hx Human Immunodeficiency Virus (HIV): No - INTEGUMENTARY Hx Dermatological Problems: Yes Other/Comment: tattoos - MUSCULOSKELETAL/RHEUMATOLOGICAL Hx Musculoskeletal Disorders: Yes Hx Falls: No - GASTROINTESTINAL Hx Gastrointestinal Disorders: No - GENITOURINARY/GYNECOLOGICAL Hx Sexually Transmitted Disorders: No - PSYCHIATRIC Hx Anxiety: Yes Hx Substance Use: No (pt reports clean off heroine x1year) - SURGICAL HISTORY Hx Surgeries: Yes Other/Comment: Kidney stone removal - ANESTHESIA Hx Anesthesia: Yes Hx Anesthesia Reactions: No Hx Malignant Hyperthermia: No Meds Allergies/Adverse Reactions: Allergies Allergy/AdvReac Type Severity Reaction Status Date / Time No Known Allergies Allergy Verified 10/11/17 13:47 Physical Exam - Constitutional Appears: Agitated - Head Exam Head Exam: ATRAUMATIC, NORMOCEPHALIC - Eye Exam Eye Exam: EOMI, Normal appearance, PERRL - ENT Exam ENT Exam: Mucous Membranes Dry - Neck Exam Neck exam: Positive for: Normal Inspection. Negative for: Tenderness - Respiratory Exam Respiratory Exam: Wheezes, Respiratory Distress, NORMAL BREATHING PATTERN. absent: Rales, Rhonchi Additional comments: Diffuse expiratory wheezing - Cardiovascular Exam Cardiovascular Exam: REGULAR RHYTHM, +S1, +S2 - GI/Abdominal Exam GI & Abdominal Exam: Normal Bowel Sounds, Soft. absent: Mass, Organomegaly, Rebound, Rigid - Extremities Exam Extremities exam: Positive for: normal inspection. Negative for: tenderness - Neurological Exam Neurological exam: Alert, CN II-XII Intact, Oriented x3 - Psychiatric Exam Psychiatric exam: Agitated, Anxious - Skin Additional comments: Tattoos on upper and lower extremities bilaterally. Excoriations on upper and lower extremities bilaterally. Ecchymosis on left lower extremity. Results - Vital Signs Recent Vital Signs: Last Vital Signs Temp 98.6 F 10/11/17 16:15 Pulse 96 H 10/11/17 16:15 Resp 24 10/11/17 16:15 BP 153/91 H 10/11/17 16:15 Pulse Ox 95 10/11/17 16:15 - Labs Result Diagrams: 10/11/17 14:48 10/11/17 14:48 Labs: Laboratory Results - last 24 hr 10/11/17 10/11/17 14:48 14:48 WBC 12.4 H RBC 3.97 Hgb 12.5 Hct 37.7 MCV 94.8 MCH 31.4 H MCHC 33.1 RDW 13.4 Plt Count 254 MPV 8.9 Neut % (Auto) 66.0 Lymph % (Auto) 24.6 Green % (Auto) 7.9 Eos % (Auto) 0.9 Baso % (Auto) 0.6 Neut # (Auto) 8.2 H Lymph # (Auto) 3.0 Green # (Auto) 1.0 H Eos # (Auto) 0.1 Baso # (Auto) 0.1 Sodium 135 Potassium 5.4 H Chloride 98 Carbon Dioxide 32 H Anion Gap 11 BUN 18 H Creatinine 0.6 L Est GFR ( Amer) > 60 Est GFR (Non-Af Amer) > 60 Random Glucose 139 H Calcium 8.5 L Magnesium 1.8 Total Bilirubin 0.7 AST 46 H D ALT 29 Alkaline Phosphatase 58 Troponin I < 0.0120 NT-Pro-B Natriuret Pep 207 Total Protein 6.5 Albumin 4.0 Globulin 2.5 Albumin/Globulin Ratio 1.6 Assessment & Plan - Assessment and Plan (Free Text) Assessment: Patient is a 52 year old female with past medical history of asthma, anxiety, nephrolithiasis presenting with chief complaint of shortness of breath that began a few days prior accompanied by cough and sore throat. Plan: Asthma vs. COPD exacerbation - Solumedrol 60 mg IV Q8H - Duonebs q6H - Advair 250/50 1 puff BID - Needs PFTs outpatient to differentiate COPD vs. asthma Nicotine dependence - 1 patch 7 mg daily - Counseling provided History of heroin abuse - UDS positive for opiates Hyperkalemia - Continue to monitor Leukocytosis - Possibly secondary to recent steroid use. Was recently discharged from [place] [facility] on 10/10. - Afebrile - CXR shows no active disease. - Patient has excoriations without evidence of cellulitis History of anxiety - Continue to monitor History of insomnia - Continue to monitor - Current dose of seroquel too high for insomina - Start seroquel 25 mg HS Elevated blood pressure - Possibly secondary to recent steroid use. - Start Norvasc 5 mg PO - Vital signs q6H PPX - As patient is on steroids will give Protonix 40 mg PO QD - DVT risk score 2. Start heparin 5000 units SC Q8H and SCDs [place] Dove PGY-1 - Date & Time Date: 10/11/17 Time: 17:39
[2017-10-11 18:02] LABS: BARBITURATES, UR NEGATIVE (NEGATIVE); BENZODIAZEPINES, UR NEGATIVE (NEGATIVE); PHENCYCLIDINE, UR NEGATIVE (NEGATIVE)
[2017-10-11 18:03] LABS: OPIATES, UR POSITIVE (NEGATIVE)
--- NOTE | 2017-10-11 18:12 | RAD ---
Date of service: 10/11/2017 HISTORY: SOB COMPARISON: Portable chest 08/19/2017. TECHNIQUE: Chest PA and lateral FINDINGS: LUNGS: Improved inspiratory volume noted. No interval acute pulmonary disease appreciable. PLEURA: No significant pleural effusion identified. No pneumothorax apparent. CARDIOVASCULAR: Normal. OSSEOUS STRUCTURES: No significant abnormalities. VISUALIZED UPPER ABDOMEN: Normal. OTHER FINDINGS: None. IMPRESSION: No interval acute cardiopulmonary disease appreciated.
[2017-10-11] MEDS ORDERED: Albuterol-Ipratrop 3 mg / 0.5 (3 ml) UD INH SCH (18:30)
[2017-10-11] MEDS: MethylPREDNISolone 40 mg Vial IVP SCH (18:44)
[2017-10-11] MEDS: Fluticasone-Salmeterol 250-50mcg Diskus INH SCH (20:07)
[2017-10-11] MEDS: Albuterol-Ipratrop 3 mg / 0.5 (3 ml) UD INH SCH (20:08)
[2017-10-12] MEDS: Albuterol-Ipratrop 3 mg / 0.5 (3 ml) UD INH SCH ×4 (01:35→20:54)
[2017-10-12] MEDS: MethylPREDNISolone 40 mg Vial IVP SCH ×2 (05:12→17:40)
[2017-10-12] MEDS: Fluticasone-Salmeterol 250-50mcg Diskus INH SCH ×2 (08:08→20:54)
[2017-10-12 08:14] LABS: BASO % 0.2 % (0.0-2.0); HEMOGLOBIN 11.9 g/dL (11.0-16.0); LYMPH # 0.7 K/uL (1.0-4.3); LYMPH % 5.6 % (20.0-40.0); MEAN CELL VOLUME 94.2 fL (81.0-99.0); MEAN CORPUSCULAR HEMOGLOBIN 31.3 pg (27.0-31.0); MEAN CORPUSCULAR HGB CONC 33.2 g/dL (33.0-37.0); MEAN PLATELET VOLUME 9.6 fL (7.2-11.7); MONO # 0.3 K/uL (0.0-0.8); MONO % 2.6 % (0.0-10.0); NEUT # 11.4 K/uL (1.8-7.0); NEUT % 91.6 % (50.0-75.0); PLATELET COUNT 241 K/uL (130-400); RBC 3.81 Mil/uL (3.80-5.20); RED CELL DISTRIBUTION WIDTH 13.2 % (11.5-14.5); WHITE BLOOD COUNT 12.4 K/uL (4.8-10.8)
[2017-10-12 08:44] LABS: ALB/GLOB RATIO 1.4 (1.0-2.1); ALBUMIN 3.4 g/dL (3.5-5.0); ALT/SGPT 39 U/L (9-52); AST/SGOT 26 U/L (14-36); BLOOD UREA NITROGEN 18 mg/dL (7-17); CALCIUM 9.1 mg/dl (8.6-10.4); GFR AFRICAN-AMERICAN > 60; GFR NON-AFRICAN AMERICAN > 60
[2017-10-12 09:18] LABS: EOSINOPHIL 1 % (0-4); LYMPHOCYTE 5 % (20-40); MONOCYTE 2 % (0-10); NEUTROPHIL 92 % (50-75); PLATELET ESTIMATE NORMAL (NORMAL); TOTAL CELLS COUNTED 100
[2017-10-12] MEDS: Pantoprazole 40 mg EC Tab PO SCH (10:05)
--- NOTE | 2017-10-12 12:17 | CP.PCM.PN ---
Subjective - Date & Time of Evaluation Date of Evaluation: 10/12/17 Time of Evaluation: 12:00 - Subjective Subjective: Patient was seen and examined by me. She reported that she only felt that her breathing was mildly better than from yesterday, however + wheezing, + coughing. She also reported yesterday a sore throat and that the throat is signifigantly improved. Denied fevers, denied chills. Patient as mentioned previously + UDS for opiates and she explained that she did take heroine but she did not want to discuss the amount or the method of which she took it by, Family member was present in the room - patient was ok with presence of family before we spoke about this. I explained that given her history of asthma, that taking things like heroine would only make the shortness of breath and coughing worse. Patient and family understand they say Objective - Vital Signs/Intake and Output Vital Signs (last 24 hours): Temp Pulse Resp BP Pulse Ox 98.4 F 90 20 151/82 H 96 10/12/17 08:00 10/12/17 08:00 10/12/17 08:00 10/12/17 08:00 10/12/17 08:00 Intake and Output: 10/12/17 10/12/17 06:59 18:59 Intake Total 350 550 Balance 350 550 - Medications Medications: Current Medications Albuterol/Ipratropium (Duoneb 3 Mg/0.5 Mg (3 Ml) Ud) 3 ml INH RQ6 [facility] Last Admin: 10/12/17 08:08 Dose: 3 ml Amlodipine Besylate (Norvasc) 5 mg PO DAILY [facility] Last Admin: 10/12/17 10:05 Dose: 5 mg Azithromycin (Zithromax) 250 mg PO DAILY [facility] PRN Reason: Protocol Stop: 10/15/17 10:00 Last Admin: 10/12/17 10:05 Dose: 250 mg Heparin Sodium (Porcine) (Heparin) 5,000 units SC Q8 [facility] Last Admin: 10/12/17 05:11 Dose: 5,000 units Methylprednisolone (Solu-Medrol) 60 mg IVP Q12H [facility] Last Admin: 10/12/17 05:12 Dose: 60 mg Nicotine (Nicoderm Cq) 1 patch TD DAILY [facility] Last Admin: 10/12/17 10:05 Dose: 1 patch Pantoprazole Sodium (Protonix Ec Tab) 40 mg PO DAILY [facility] Last Admin: 10/12/17 10:05 Dose: 40 mg Quetiapine Fumarate (Seroquel) 25 mg PO HS [facility] Last Admin: 10/11/17 21:48 Dose: 25 mg Fluticasone/Salmeterol (Advair Diskus 250/50) 1 puff INH RQ12 [facility] Last Admin: 10/12/17 08:08 Dose: 1 puff - Labs Labs: 10/12/17 08:01 10/12/17 08:01 - Constitutional Appears: Unkempt - Head Exam Head Exam: NORMAL INSPECTION, NORMOCEPHALIC - Eye Exam Eye Exam: EOMI, Normal appearance - ENT Exam ENT Exam: Mucous Membranes Moist, Normal Exam Additional comments: No erthema today back of throat. No discharge back of throat - Neck Exam Neck Exam: Full ROM, Tenderness Additional comments: Very minimal tenderness neck. No palputable nodes - Respiratory Exam Respiratory Exam: Rales, Rhonchi, Wheezes - Cardiovascular Exam Cardiovascular Exam: REGULAR RHYTHM - GI/Abdominal Exam GI & Abdominal Exam: Soft - Neurological Exam Neurological Exam: Alert, Awake, Oriented x3 Neuro motor strength exam: Left Upper Extremity: 5, Right Upper Extremity: 5, Left Lower Extremity: 5, Right Lower Extremity: 5 - Psychiatric Exam Psychiatric exam: Agitated - Skin Skin Exam: Normal Color, Warm Assessment and Plan - Assessment and Plan (Free Text) Assessment: Patient is a 52 year old female with past medical history of asthma, anxiety, nephrolithiasis presenting with chief complaint of shortness of breath that began a few days prior accompanied by cough and sore throat. Plan: Asthma/COPD exacerbation made worse with ongoing heroine use 10/12: As of today still has coughing and wheezing. Will continue with the IV solumedrol, change duonebuloizers to Q4hrs ATC. Continue with the Advair. Also get a bedside peak/post flows - Solumedrol 60 mg IV Q8H - Duonebs q4H - Advair 250/50 1 puff BID Nicotine dependence - 1 patch 7 mg daily - Counseling provided History of heroin abuse 10/12: Per my discussion with patient and family, she is still using heroine. She and family understand it can make the breathing much worse if she continues to use. UDS was positive. Hyperkalemia 10/12: today decreased, continue to follow labs Leukocytosis - Possibly secondary to recent steroid use. Was recently discharged from [place] on 10/10. - Afebrile - CXR shows no active disease. - Patient has excoriations without evidence of cellulitis History of anxiety - Continue to monitor History of insomnia - Continue to monitor - Current dose of seroquel too high for insomina - Start seroquel 25 mg HS Elevated blood pressure 10/12: If remains elevated then should change control coordinator to 10 of norvasc a day. Maybe an element of heroine withdrawl involved as well. PPX - As patient is on steroids will give Protonix 40 mg PO QD - DVT risk score 2. Start heparin 5000 units SC Q8H and SCDs
[2017-10-13] MEDS: Albuterol-Ipratrop 3 mg / 0.5 (3 ml) UD INH SCH ×7 (00:02→23:55)
[2017-10-13] MEDS: MethylPREDNISolone 40 mg Vial IVP SCH ×2 (05:52→17:48)
[2017-10-13] MEDS: Fluticasone-Salmeterol 250-50mcg Diskus INH SCH ×2 (07:39→19:02)
[2017-10-13 08:06] LABS: BASO # 0.1 K/uL (0.0-0.2); BASO % 0.3 % (0.0-2.0); HEMOGLOBIN 11.9 g/dL (11.0-16.0); LYMPH # 1.7 K/uL (1.0-4.3); LYMPH % 9.1 % (20.0-40.0); MEAN CELL VOLUME 94.6 fL (81.0-99.0); MEAN CORPUSCULAR HEMOGLOBIN 31.1 pg (27.0-31.0); MEAN CORPUSCULAR HGB CONC 32.9 g/dL (33.0-37.0); MEAN PLATELET VOLUME 9.6 fL (7.2-11.7); MONO # 1.1 K/uL (0.0-0.8); MONO % 5.7 % (0.0-10.0); NEUT # 16.1 K/uL (1.8-7.0); NEUT % 84.9 % (50.0-75.0); PLATELET COUNT 270 K/uL (130-400); RBC 3.82 Mil/uL (3.80-5.20); RED CELL DISTRIBUTION WIDTH 13.2 % (11.5-14.5)
[2017-10-13 08:27] LABS: ALB/GLOB RATIO 1.7 (1.0-2.1); ALBUMIN 3.5 g/dL (3.5-5.0); ALT/SGPT 38 U/L (9-52); AST/SGOT 20 U/L (14-36); BLOOD UREA NITROGEN 16 mg/dL (7-17); CALCIUM 8.8 mg/dl (8.6-10.4); GFR AFRICAN-AMERICAN > 60; GFR NON-AFRICAN AMERICAN > 60
[2017-10-13 09:14] LABS: ANISOCYTOSIS SLIGHT; BANDS 1 % (0-2); LYMPHOCYTE 6 % (20-40); MONOCYTE 9 % (0-10); NEUTROPHIL 84 % (50-75); PLATELET ESTIMATE NORMAL (NORMAL); POIKILOCYTOSIS SLIGHT; TOTAL CELLS COUNTED 100
[2017-10-13] MEDS: Pantoprazole 40 mg EC Tab PO SCH (09:41)
--- NOTE | 2017-10-13 13:02 | CP.PCM.PN ---
Subjective - Date & Time of Evaluation Date of Evaluation: 10/13/17 Time of Evaluation: 13:00 - Subjective Subjective: PGY-1 Medicine Progress Note Patient seen and examined at bedside. Patient still reports on dyspnea on exertion even with ambulating to bathroom. Patient still feels short of breath at rest and reports a non productive cough. Patient states she feels agitated due to recent relapse in heroin use. Patient denies chest pain, palpitations, headaches, dizziness, n/v, constipation or diarrhea, and dyusria. Objective - Vital Signs/Intake and Output Vital Signs (last 24 hours): Temp Pulse Resp BP Pulse Ox 98.2 F 89 20 150/74 95 10/13/17 07:32 10/13/17 07:32 10/13/17 07:32 10/13/17 07:32 10/13/17 07:32 Intake and Output: 10/13/17 10/13/17 06:59 18:59 Intake Total 550 Balance 550 - Medications Medications: Current Medications Albuterol/Ipratropium (Duoneb 3 Mg/0.5 Mg (3 Ml) Ud) 3 ml INH RQ4 [facility] Last Admin: 10/13/17 11:11 Dose: 3 ml Amlodipine Besylate (Norvasc) 5 mg PO DAILY [facility] Last Admin: 10/13/17 09:41 Dose: 5 mg Azithromycin (Zithromax) 250 mg PO DAILY [facility] PRN Reason: Protocol Stop: 10/15/17 10:00 Last Admin: 10/13/17 09:40 Dose: 250 mg Heparin Sodium (Porcine) (Heparin) 5,000 units SC Q8 [facility] Last Admin: 10/13/17 05:52 Dose: 5,000 units Methylprednisolone (Solu-Medrol) 60 mg IVP Q12H [facility] Last Admin: 10/13/17 05:52 Dose: 60 mg Nicotine (Nicoderm Cq) 1 patch TD DAILY [facility] Last Admin: 10/13/17 09:41 Dose: 1 patch Pantoprazole Sodium (Protonix Ec Tab) 40 mg PO DAILY [facility] Last Admin: 10/13/17 09:41 Dose: 40 mg Quetiapine Fumarate (Seroquel) 25 mg PO HS [facility] Last Admin: 10/12/17 21:33 Dose: 25 mg Fluticasone/Salmeterol (Advair Diskus 250/50) 1 puff INH RQ12 [facility] Last Admin: 10/13/17 07:39 Dose: 1 puff - Labs Labs: 10/13/17 07:42 10/13/17 07:42 - Constitutional Appears: Non-toxic, No Acute Distress - Head Exam Head Exam: NORMAL INSPECTION, NORMOCEPHALIC - Eye Exam Eye Exam: EOMI, Normal appearance. absent: Nystagmus, Scleral icterus - Respiratory Exam Respiratory Exam: Wheezes, NORMAL BREATHING PATTERN. absent: Rales, Rhonchi Additional comments: bilateral lower>higher expiratory wheezes - Cardiovascular Exam Cardiovascular Exam: REGULAR RHYTHM, +S1, +S2. absent: Murmur - GI/Abdominal Exam GI & Abdominal Exam: Soft, Normal Bowel Sounds. absent: Distended, Firm, Tenderness - Extremities Exam Extremities Exam: Normal Inspection. absent: Pedal Edema - Back Exam Back Exam: NORMAL INSPECTION. absent: CVA tenderness (L), CVA tenderness (R), paraspinal tenderness - Neurological Exam Neurological Exam: Alert, Awake, Oriented x3 - Psychiatric Exam Psychiatric exam: Agitated, Anxious - Skin Skin Exam: Normal Color. absent: Pallor, Rash Assessment and Plan - Assessment and Plan (Free Text) Assessment: 52 y.o female with PMH COPD, asthma, nephrolithiasis, HTN presents to the hospital for shortness of breath, cough, and sorethroat; patient being treated for acute exacerbation of copd; patient admits to recent relapse in heroin use; Plan: Acute exacerbation of COPD/Asthma Duonebs 3ml q4 [facility] Solumedrol IVIP 60mg q12 [facility] Advair Diskus 250/50 q12 [facility] Azithromycin (started 10/12) 250mg po daily 10/11/17: CXRAY- no interval acute cardiopulmonary disease appreciated HTN BP- 150/74; likely elevated due to steroid treatment Continue Amlodipine 5mg po daily Opioid Abuse 10/11/17: UDS shows positive for opiates Educated patient on cessation of opiods as they may increase exacerbations of COPD Tobacco use Nicotine patch 1 patch TD daily Insomnia Continue seroquel 25mg HS Hyperkalemia (Resolved) K-4.7; Continue to monitor Leukocytosis Likely secondary to steroid use Afebrile 10/11/17: CXRAY- no interval acute cardiopulmonary disease appreciated Prophylaxis Heparin 5000 units sc q8 [facility] GI prophylaxis: not indicated Madaser Kayden PGY-1
[2017-10-13] MEDS: Saccharomyces Boulardi 250 mg Cap PO SCH (17:46)
[2017-10-14] MEDS: MethylPREDNISolone 40 mg Vial IVP SCH ×3 (01:58→17:46)
[2017-10-14] MEDS: Albuterol-Ipratrop 3 mg / 0.5 (3 ml) UD INH SCH ×5 (03:43→20:08)
[2017-10-14 06:42] LABS: BASO % 0.2 % (0.0-2.0); HEMOGLOBIN 11.9 g/dL (11.0-16.0); LYMPH # 0.9 K/uL (1.0-4.3); LYMPH % 4.3 % (20.0-40.0); MEAN CELL VOLUME 94.7 fL (81.0-99.0); MEAN CORPUSCULAR HEMOGLOBIN 31.1 pg (27.0-31.0); MEAN CORPUSCULAR HGB CONC 32.8 g/dL (33.0-37.0); MEAN PLATELET VOLUME 9.6 fL (7.2-11.7); MONO # 0.6 K/uL (0.0-0.8); MONO % 3.2 % (0.0-10.0); NEUT # 18.3 K/uL (1.8-7.0); NEUT % 92.3 % (50.0-75.0); PLATELET COUNT 307 K/uL (130-400); RBC 3.82 Mil/uL (3.80-5.20); RED CELL DISTRIBUTION WIDTH 13.7 % (11.5-14.5); WHITE BLOOD COUNT 19.9 K/uL (4.8-10.8)
[2017-10-14 07:32] LABS: ALB/GLOB RATIO 1.6 (1.0-2.1); ALT/SGPT 47 U/L (9-52); AST/SGOT 33 U/L (14-36); BLOOD UREA NITROGEN 18 mg/dL (7-17); CALCIUM 9.2 mg/dl (8.6-10.4); GFR AFRICAN-AMERICAN > 60; GFR NON-AFRICAN AMERICAN > 60
[2017-10-14 08:34] LABS: BANDS 1 % (0-2); LYMPHOCYTE 5 % (20-40); MONOCYTE 3 % (0-10); NEUTROPHIL 91 % (50-75); PLATELET ESTIMATE NORMAL (NORMAL); TOTAL CELLS COUNTED 100
--- NOTE | 2017-10-14 09:59 | CP.PCM.PN ---
Subjective - Date & Time of Evaluation Date of Evaluation: 10/14/17 Time of Evaluation: 10:48 - Subjective Subjective: PGY 3 Medicine Progress Note- Dr. Mejia's service Pt seen and examined in no acute distress. Patient states that she feels a bit better today in comparison to yesterday. She states that she overall does not feel worse. She does admit to a productive cough with green-yellow sputum. She has some wheezing. She denies subjective fevers or chills, nausea, palpitation , dyspnea, vomiting or diarrhea at this time. Objective - Vital Signs/Intake and Output Vital Signs (last 24 hours): Temp Pulse Resp BP Pulse Ox 98.2 F 106 H 20 139/77 95 10/14/17 08:03 10/14/17 08:03 10/14/17 08:03 10/14/17 08:03 10/14/17 08:03 Intake and Output: 10/14/17 10/14/17 06:59 18:59 Intake Total 200 Balance 200 - Medications Medications: Current Medications Albuterol/Ipratropium (Duoneb 3 Mg/0.5 Mg (3 Ml) Ud) 3 ml INH RQ4 [facility] Last Admin: 10/14/17 07:14 Dose: 3 ml Amlodipine Besylate (Norvasc) 5 mg PO DAILY [facility] Last Admin: 10/13/17 09:41 Dose: 5 mg Azithromycin (Zithromax) 250 mg PO DAILY [facility] PRN Reason: Protocol Stop: 10/15/17 10:00 Last Admin: 10/13/17 09:40 Dose: 250 mg Diphenhydramine HCl (Benadryl) 25 mg PO Q6 [facility] Last Admin: 10/14/17 06:05 Dose: 25 mg Heparin Sodium (Porcine) (Heparin) 5,000 units SC Q8 [facility] Last Admin: 10/14/17 06:11 Dose: 5,000 units Methylprednisolone (Solu-Medrol) 60 mg IVP Q8H [facility] Last Admin: 10/14/17 01:58 Dose: 60 mg Nicotine (Nicoderm Cq) 1 patch TD DAILY [facility] Last Admin: 10/13/17 09:41 Dose: 1 patch Pantoprazole Sodium (Protonix Ec Tab) 40 mg PO DAILY [facility] Last Admin: 10/13/17 09:41 Dose: 40 mg Quetiapine Fumarate (Seroquel) 25 mg PO HS [facility] Last Admin: 10/13/17 21:27 Dose: 25 mg Saccharomyces Boulardii (Florastor) 250 mg PO BID [facility] Last Admin: 10/13/17 17:46 Dose: 250 mg Fluticasone/Salmeterol (Advair Diskus 250/50) 1 puff INH RQ12 [facility] Last Admin: 10/13/17 19:02 Dose: 1 puff - Labs Labs: 10/14/17 06:30 10/14/17 06:30 - Constitutional Appears: Non-toxic, No Acute Distress - Head Exam Head Exam: ATRAUMATIC - Eye Exam Eye Exam: EOMI, Normal appearance, PERRL - ENT Exam ENT Exam: Mucous Membranes Moist - Respiratory Exam Respiratory Exam: Wheezes. absent: Clear to Ausculation Bilateral, Respiratory Distress - Cardiovascular Exam Cardiovascular Exam: +S1, +S2 - Extremities Exam Extremities Exam: Full ROM - Back Exam Back Exam: Full ROM - Neurological Exam Neurological Exam: Alert, Awake, Oriented x3 - Psychiatric Exam Psychiatric exam: Normal Affect, Normal Mood - Skin Skin Exam: Dry, Warm Assessment and Plan - Assessment and Plan (Free Text) Assessment: Acute exacerbation of COPD/Asthma Duonebs 3ml q4 [facility] Solumedrol IV 60mg q12 [facility] Advair Diskus 250/50 q12 [facility] Azithromycin (started 10/12) 250mg po daily. Continue in light of clinical symptoms- productive cough with wheezing. Initial dyspnea on presentation. On Florastor as well 10/11/17: CXRAY- no interval acute cardiopulmonary disease appreciated Leukocytosis Likely secondary to steroid use Afebrile 10/11/17: CXRAY- no interval acute cardiopulmonary disease appreciated Monitor HTN Normotensive Continue Amlodipine 5mg po daily Monitor Hyperkalemia Resolved. Replete as needed Monitor Insomnia Continue Seroquel 25mg HS Opioid Abuse 10/11/17: UDS shows positive for opiates Educated patient on cessation of opioids as they may increase exacerbations of COPD Tobacco use Nicotine patch 1 patch TD daily Cessation counseling Prophylactic Measure Heparin 5000 units sc q8 [facility] GI prophylaxis: Protonix 40 mg PO daily Discussed with attending. All planning and management per Dr. Mejia.
[2017-10-14] MEDS: Saccharomyces Boulardi 250 mg Cap PO SCH ×2 (10:01→17:46)
[2017-10-14] MEDS: Pantoprazole 40 mg EC Tab PO SCH (10:02)
[2017-10-14] MEDS: Fluticasone-Salmeterol 250-50mcg Diskus INH SCH ×2 (10:03→20:08)
[2017-10-15] MEDS: Albuterol-Ipratrop 3 mg / 0.5 (3 ml) UD INH SCH ×4 (00:08→11:21)
[2017-10-15 01:00] VITALS: RESP 20
[2017-10-15] MEDS: MethylPREDNISolone 40 mg Vial IVP SCH ×2 (01:21→10:54)
[2017-10-15 06:08] LABS: BASO % 0.1 % (0.0-2.0); HEMOGLOBIN 11.2 g/dL (11.0-16.0); LYMPH # 1.1 K/uL (1.0-4.3); LYMPH % 5.1 % (20.0-40.0); MEAN CELL VOLUME 94.1 fL (81.0-99.0); MEAN CORPUSCULAR HEMOGLOBIN 30.9 pg (27.0-31.0); MEAN CORPUSCULAR HGB CONC 32.8 g/dL (33.0-37.0); MEAN PLATELET VOLUME 8.7 fL (7.2-11.7); MONO # 1.1 K/uL (0.0-0.8); MONO % 5.4 % (0.0-10.0); NEUT # 18.8 K/uL (1.8-7.0); NEUT % 89.4 % (50.0-75.0); PLATELET COUNT 275 K/uL (130-400); RBC 3.64 Mil/uL (3.80-5.20); RED CELL DISTRIBUTION WIDTH 13.6 % (11.5-14.5)
[2017-10-15] MEDS: Fluticasone-Salmeterol 250-50mcg Diskus INH SCH (07:16)
[2017-10-15 07:38] LABS: ALB/GLOB RATIO 1.4 (1.0-2.1); ALBUMIN 3.4 g/dL (3.5-5.0); ALT/SGPT 44 U/L (9-52); AST/SGOT 27 U/L (14-36); BLOOD UREA NITROGEN 22 mg/dL (7-17); CALCIUM 8.7 mg/dl (8.6-10.4); GFR AFRICAN-AMERICAN > 60; GFR NON-AFRICAN AMERICAN > 60
--- NOTE | 2017-10-15 08:00 | CP.PCM.PN ---
Subjective - Date & Time of Evaluation Date of Evaluation: 10/15/17 Time of Evaluation: 07:50 - Subjective Subjective: PGY 3 Medicine Progress Note- Dr. Mejia's service Pt seen and examined in no acute distress. Patient states that she feels better today . She denies subjective fevers or chills, nausea, palpitation, dyspnea, vomiting or diarrhea at this time. Objective - Vital Signs/Intake and Output Vital Signs (last 24 hours): Temp Pulse Resp BP Pulse Ox 98.1 F 92 H 20 149/76 96 10/15/17 00:00 10/15/17 00:00 10/15/17 00:00 10/15/17 00:00 10/15/17 00:00 Intake and Output: 10/15/17 10/15/17 06:59 18:59 Intake Total 480 Balance 480 - Medications Medications: Current Medications Albuterol/Ipratropium (Duoneb 3 Mg/0.5 Mg (3 Ml) Ud) 3 ml INH RQ4 [facility] Last Admin: 10/15/17 07:15 Dose: 3 ml Amlodipine Besylate (Norvasc) 5 mg PO DAILY [facility] Last Admin: 10/14/17 10:01 Dose: 5 mg Azithromycin (Zithromax) 250 mg PO DAILY [facility] PRN Reason: Protocol Stop: 10/15/17 10:00 Last Admin: 10/14/17 10:01 Dose: 250 mg Diphenhydramine HCl (Benadryl) 25 mg PO Q6 [facility] Last Admin: 10/15/17 05:57 Dose: 25 mg Heparin Sodium (Porcine) (Heparin) 5,000 units SC Q8 [facility] Last Admin: 10/15/17 05:56 Dose: 5,000 units Methylprednisolone (Solu-Medrol) 60 mg IVP Q8H [facility] Last Admin: 10/15/17 01:21 Dose: 60 mg Nicotine (Nicoderm Cq) 1 patch TD DAILY [facility] Last Admin: 10/14/17 10:02 Dose: 1 patch Pantoprazole Sodium (Protonix Ec Tab) 40 mg PO DAILY [facility] Last Admin: 10/14/17 10:02 Dose: 40 mg Quetiapine Fumarate (Seroquel) 25 mg PO HS [facility] Last Admin: 10/14/17 21:44 Dose: 25 mg Saccharomyces Boulardii (Florastor) 250 mg PO BID [facility] Last Admin: 10/14/17 17:46 Dose: 250 mg Fluticasone/Salmeterol (Advair Diskus 250/50) 1 puff INH RQ12 [facility] Last Admin: 10/15/17 07:16 Dose: 1 puff - Labs Labs: 10/15/17 06:04 10/15/17 06:04 - Constitutional Appears: Non-toxic, No Acute Distress - Head Exam Head Exam: ATRAUMATIC, NORMAL INSPECTION, NORMOCEPHALIC - Eye Exam Eye Exam: EOMI, Normal appearance - ENT Exam ENT Exam: Mucous Membranes Moist - Neck Exam Neck Exam: Full ROM - Respiratory Exam Respiratory Exam: NORMAL BREATHING PATTERN. absent: Wheezes - Cardiovascular Exam Cardiovascular Exam: +S1, +S2 - GI/Abdominal Exam GI & Abdominal Exam: Soft, Normal Bowel Sounds. absent: Tenderness - Extremities Exam Extremities Exam: Full ROM - Back Exam Back Exam: Full ROM - Neurological Exam Neurological Exam: Alert, Awake, Oriented x3 - Psychiatric Exam Psychiatric exam: Normal Affect, Normal Mood - Skin Skin Exam: Dry, Normal Color, Warm Assessment and Plan - Assessment and Plan (Free Text) Assessment: Acute exacerbation of COPD/Asthma Duonebs 3ml q4 [facility] Solumedrol IV 60mg q12 [facility] will transition to PO dosing in time for discharge Advair Diskus 250/50 q12 [facility] Azithromycin (started 10/11). Patient to complete treatment today. On Florastor as well. To complete treatment today. 10/11/17: CXRAY- no interval acute cardiopulmonary disease appreciated Leukocytosis Likely secondary to steroid use. Afebrile 10/11/17: CXRAY- no interval acute cardiopulmonary disease appreciated Monitor HTN Normotensive Continue Amlodipine 5mg po daily Monitor Hyperkalemia Resolved. Replete as needed Monitor Insomnia Continue Seroquel 25mg HS Opioid Abuse 10/11/17: UDS shows positive for opiates Educated patient on cessation of opioids as they may increase exacerbations of COPD Tobacco use Nicotine patch 1 patch TD daily Cessation counseling Prophylactic Measure Heparin 5000 units sc q8 [facility] GI prophylaxis: Protonix 40 mg PO daily DC instructions Patient is medically stable for discharge home. Patient to follow up with primary medical Doctor Jackie within one week. Patient counseled on smoking cessation. Patient to continue steroid therapy as stated. Patient to take 40 mg tablet every 8 hours 10/15/17 Patient to take 40 mg tablet every 8 hours 10/16/17 Patient to take 40 mg tablet every 12 hours 10/17/17 Patient to take one 40 mg tablet on 10/18 and then stop. Patient may resume home therapy medications for asthma management. If symptoms return go to the emergency room. Instructions explained to patient who is aware. Discussed with attending. All planning and management per Dr. Mejia.
[2017-10-15 08:29] LABS: LYMPHOCYTE 2 % (20-40); MONOCYTE 5 % (0-10); NEUTROPHIL 93 % (50-75); TOTAL CELLS COUNTED 100
[2017-10-15 08:30] LABS: LARGE PLATELETS PRESENT; PLATELET ESTIMATE NORMAL (NORMAL)
[2017-10-15 09:06] VITALS: BP 140/73; PULSE 99; TEMP 98.6; O2SAT 95
[2017-10-15] MEDS ORDERED: MethylPREDNISolone 40 mg Vial IVP SCH ×2 (10:45→14:00)
[2017-10-15] MEDS: Pantoprazole 40 mg EC Tab PO SCH (10:53)
[2017-10-15] MEDS: Saccharomyces Boulardi 250 mg Cap PO SCH (10:53)
== END 2017-10-15 12:17 | disposition home or self-care (01) | DRG 88 ==
LOC: C.ER 13:41 → C.9E 16:18 → C.3T 17:18 → OBSVTOIN 10-14 15:14
PROVIDERS: ADMIT Internal Medicine Pulmonary Disease; ATTEND Internal Medicine Pulmonary Disease
DX: J44.1 Chronic obstructive pulmonary disease with (acute) exacerbation (principal); E87.5 Hyperkalemia; F11.10 Opioid abuse, uncomplicated; J45.901 Unspecified asthma with (acute) exacerbation; N18.9 Chronic kidney disease, unspecified; F17.210 Nicotine dependence, cigarettes, uncomplicated; F41.9 Anxiety disorder, unspecified; G47.00 Insomnia, unspecified; I12.9 Hypertensive chronic kidney disease with stage 1 through stage 4 chronic kidney disease, or unspecified chronic kidney disease; N20.0 Calculus of kidney; T38.0X5A Adverse effect of glucocorticoids and synthetic analogues, initial encounter; D72.829 Elevated white blood cell count, unspecified

== ENCOUNTER 2017-10-25 23:25 | Observation (INO) | payer OTHER ==
[2017-10-25 23:26] VITALS: BMI 27.4
[2017-10-26] MEDS ORDERED: Albuterol-Ipratrop 3 mg / 0.5 (3 ml) UD INH STA ×2 (00:14→00:28)
[2017-10-26 00:23] LABS: BASO % 0.4 % (0.0-2.0); HEMOGLOBIN 12.6 g/dL (11.0-16.0); LYMPH # 0.8 K/uL (1.0-4.3); LYMPH % 9.2 % (20.0-40.0); MEAN CORPUSCULAR HEMOGLOBIN 31.8 pg (27.0-31.0); MEAN CORPUSCULAR HGB CONC 33.8 g/dL (33.0-37.0); MEAN PLATELET VOLUME 9.2 fL (7.2-11.7); MONO # 0.9 K/uL (0.0-0.8); MONO % 9.6 % (0.0-10.0); NEUT # 7.3 K/uL (1.8-7.0); NEUT % 80.8 % (50.0-75.0); NRBC % 0.1 % (0.0-2.0); PLATELET COUNT 316 K/uL (130-400); RBC 3.97 Mil/uL (3.80-5.20); RED CELL DISTRIBUTION WIDTH 13.6 % (11.5-14.5)
[2017-10-26 00:40] LABS: ALB/GLOB RATIO 1.6 (1.0-2.1); ALBUMIN 4.5 g/dL (3.5-5.0); ALT/SGPT 112 U/L (9-52); AST/SGOT 160 U/L (14-36); BLOOD UREA NITROGEN 17 mg/dL (7-17); CALCIUM 9.4 mg/dl (8.6-10.4); GFR AFRICAN-AMERICAN > 60; GFR NON-AFRICAN AMERICAN > 60
[2017-10-26] MEDS ORDERED: Albuterol-Ipratrop 3 mg / 0.5 (3 ml) UD ONE (00:47)
[2017-10-26 00:52] LABS: SQUAMOUS EPITHIAL 6 /hpf (0-5); URINE BILIRUBIN NEGATIVE (NEGATIVE); URINE BLOOD NEGATIVE (NEGATIVE); URINE CLARITY Hazy (Clear); URINE COLOR Amber (YELLOW); URINE GLUCOSE (UA) NORMAL (Normal); URINE HYALINE CAST >20 /lpf (0-2); URINE LEUKOCYTE ESTERASE NEG Leu/uL (Negative); URINE PROTEIN 2+ mg/dL (NEGATIVE)
[2017-10-26 01:20] LABS: BARBITURATES, UR NEGATIVE (NEGATIVE); BENZODIAZEPINES, UR NEGATIVE (NEGATIVE); PHENCYCLIDINE, UR NEGATIVE (NEGATIVE)
[2017-10-26 01:24] LABS: OPIATES, UR POSITIVE (NEGATIVE)
--- NOTE | 2017-10-26 01:31 | C.PDOC ---
History Of Present Illness 52 year old female patient presents to the ER with c/o SOB and wheezing. Patient states she has a hx of asthma but she still smokes. Patient was last seen in [facility] but refuse admission. Patient admits she uses heroine and cocaine. Patient denies chest pain. Time Seen by Provider: 10/26/17 00:20 Chief Complaint (Nursing): Shortness Of Breath History/Exam Limitations: no limitations Onset/Duration Of Symptoms: Hrs Current Symptoms Are (Timing): Still Present Past Medical History Reviewed: Historical Data, Nursing Documentation, Vital Signs Vital Signs: Last Vital Signs Temp 98 F 10/26/17 03:14 Pulse 79 10/26/17 03:14 Resp 20 10/26/17 03:14 BP 125/75 10/26/17 03:14 Pulse Ox 98 10/26/17 03:40 - Medical History PMH: Anxiety, Asthma, Back Problems, Bronchitis, COPD, Kidney Stones (RIGHT), Chronic Kidney Disease - [facility] Procedures CLOSURE SKIN & SUBCUTANEOUS NEC (04/25/13) DETOXIFICATION SERVICES FOR SUBSTANCE ABUSE TREATMENT (05/23/16) INDIV PSYCHOTHERAPY FOR SUBSTANCE ABUSE TREATMENT, SUPPORT (05/23/16) INJECT/INFUSE NEC (06/22/14) INTRODUCTION OF ANTI-INFLAM INTO RESP TRACT, VIA OPENING (03/16/15) INTRODUCTION OF SERUM/TOX/VACCINE INTO MUSCLE, PERC APPROACH (03/16/15) MEDICATION MANAGEMENT (05/23/16) MEDS MGMT FOR SUBSTANCE ABUSE TREATMENT, METHADONE MAINT (05/23/16) NEBULIZER THERAPY (06/22/14) TETANUS TOXOID ADMINIST (04/25/13) Family History: States: No Known Family Hx - Social History Hx Tobacco Use: Yes (3-4 cigarettes a day) Hx Alcohol Use: No Hx Substance Use: Yes - Immunization History Hx Tetanus Toxoid Vaccination: Yes Hx Influenza Vaccination: Yes Hx Pneumococcal Vaccination: Yes Review Of Systems Except As Marked, All Systems Reviewed And Found Negative. Cardiovascular: Negative for: Chest Pain Respiratory: Positive for: Shortness of Breath, Wheezing Physical Exam - Physical Exam Appears: Well, Non-toxic, No Acute Distress Skin: Normal Color, Warm, Dry Head: Atraumatic, Normacephalic Eye(s): bilateral: Abnormal Pupil (pinpoint pupil) Neck: Normal ROM, Supple Chest: Symmetrical, No Deformity Cardiovascular: Rhythm Regular Respiratory: Rhonchi (scatter), Wheezing Gastrointestinal/Abdominal: Soft, No Tenderness Extremity: Normal ROM (x4) Neurological/Psych: Oriented x3, Normal Speech Gait: Steady ED Course And Treatment - Laboratory Results Result Diagrams: 10/26/17 00:20 10/26/17 00:20 Lab Interpretation: Abnormal (tox + cocaine and opiates, UA neg.) Urine POC: Negative ECG: Interpreted By Me ECG Rhythm: Sinus Rhythm ECG Interpretation: Normal Rate From EC O2 Sat by Pulse Oximetry: 98 (RA) Pulse Ox Interpretation: Normal - Radiology CXR: Interpreted by Me CXR Interpretation: Yes: No Acute Disease, Other (+ chronic patchy areas RLL and JOHN, similar to prior, poor insp) Reevaluation Time: 01:54 Reassessment Condition: Improved - Physician Consult Information Outcome Of Conversation: 0100: d/w Dr. Meek- PMD- ok to admit. Medical Decision Making Medical Decision Making: Plans: -- EKG -- drug screen -- blood work -- CXR -- albuterol -- methylpredinosolone -- test -- UA asthma vs COPD still smoking heroine (insuflated) and cocaine abuse ongoing Disposition Doctor Will See Patient In The: Hospital Counseled Patient/Family Regarding: Studies Performed, Diagnosis - Disposition Disposition: HOSPITALIZED Disposition Time: 01:55 Condition: GOOD - Clinical Impression Clinical Impression: Asthma exacerbation, Polysubstance abuse - Scribe Statement The provider has reviewed the documentation as recorded by the Scribjuan carlos Justice Do Provider Attestation: All medical record entries made by the Scribe were at my direction and personally dictated by me. I have reviewed the chart and agree that the record accurately reflects my personal performance of the history, physical exam, medical decision making, and the department course for this patient. I have also personally directed, reviewed, and agree with the discharge instructions and disposition.
[2017-10-26 01:46] LABS: LYMPHOCYTE 10 % (20-40); MONOCYTE 7 % (0-10); NEUTROPHIL 83 % (50-75); PLATELET ESTIMATE NORMAL (NORMAL); TOTAL CELLS COUNTED 100
[2017-10-26 03:15] VITALS: RESP 20
[2017-10-26] MEDS: Albuterol-Ipratrop 3 mg / 0.5 (3 ml) UD INH SCH ×4 (08:08→20:06)
--- NOTE | 2017-10-26 10:01 | RAD ---
Chest x-ray single frontal view History: Asthma. Shortness of breath. Comparison: 10/11/2017 Findings: Biapical pleural thickening with upper lobe granulomatous changes. Patchy airspace consolidative changes in the right infrahilar region extending into the right lung base. Small nodular density at the right lung base laterally. Diffuse increased interstitial lung markings. Top normal heart size. Degenerative changes in spine. Calcific tendinopathy of the left proximal humerus. Impression: Biapical pleural thickening with upper lobe granulomatous changes. Patchy airspace consolidative changes in the right infrahilar region extending into the right lung base. Small nodular density at the right lung base laterally. Diffuse increased interstitial lung markings. Top normal heart size. Degenerative changes in spine. Calcific tendinopathy of the left proximal humerus.
[2017-10-26] MEDS: MethylPREDNISolone 40 mg Vial IV SCH ×2 (18:44→23:34)
[2017-10-27 01:03] VITALS: BP 106/59; PULSE 73; TEMP 98; O2SAT 94
[2017-10-27] MEDS: Albuterol-Ipratrop 3 mg / 0.5 (3 ml) UD INH SCH ×2 (01:10→08:41)
[2017-10-27] MEDS: MethylPREDNISolone 40 mg Vial IV SCH (05:41)
--- NOTE | 2017-10-27 08:37 | CP.PCM.PN ---
Subjective - Date & Time of Evaluation Date of Evaluation: 10/27/17 Time of Evaluation: 07:00 - Subjective Subjective: PGY3 Resident - Medicine Progress Note 52 year old female patient presents to the ER with c/o SOB and wheezing. Patient states she has a hx of asthma but she still smokes. Patient was last seen in [facility] but refuse admission. Patient admits she uses heroine and cocaine. Patient denies chest pain. Patient seen and examined at bedside. No acute distress. No overnight events. She states she is breathing better and is ready to go home. She denies fever, chills, headache, changes in vision, chest pain, palpitations, dyspnea, cough, abdominal pain, nausea/vomiting, diarrhea/constipation, dysuria, urinary frequency, or change in urinary stream. 12-point review of systems is otherwise negative without any additional acute complaints. -- Patient is stable for discharge per Dr. Mejia. Patient should resume all medications as outlined in this document. Additionally, patient should take the new medications listed below (scripts provided). Please make an appointment and follow up with your Primary Doctor within one week of discharge. Patient should return to ED immediately if symptoms return or worsen. Instructions discussed with patient who understood and agreed. Newly prescribed medications: Medrol Dose Pack, see package instructions #1 Ventolin HFA 90mcg, 2puff INH PRN #1 Objective - Vital Signs/Intake and Output Vital Signs (last 24 hours): Temp Pulse Resp BP Pulse Ox 98 F 73 20 106/59 L 94 L 10/27/17 00:00 10/27/17 00:00 10/27/17 00:00 10/27/17 00:00 10/27/17 00:00 Intake and Output: 10/27/17 10/27/17 06:59 18:59 Intake Total 1150 Balance 1150 - Medications Medications: Current Medications Albuterol/Ipratropium (Duoneb 3 Mg/0.5 Mg (3 Ml) Ud) 3 ml INH RQ4 [facility] Last Admin: 10/27/17 01:10 Dose: 3 ml Methylprednisolone (Solu-Medrol) 40 mg IV Q6 [facility] Last Admin: 10/27/17 05:41 Dose: 40 mg - Labs Labs: 10/26/17 00:20 10/26/17 00:20 - Additional Findings Additional findings: - Constitutional Appears: Non-toxic, No Acute Distress - Head Exam Head Exam: ATRAUMATIC, NORMAL INSPECTION - Eye Exam Eye Exam: EOMI, Normal appearance - Respiratory Exam Respiratory Exam: NORMAL BREATHING PATTERN. absent: Rales, Wheezes - Cardiovascular Exam Cardiovascular Exam: Regular Rate, +S1, +S2 - GI/Abdominal Exam GI & Abdominal Exam: Soft, Normal Bowel Sounds. absent: Tenderness - Extremities Exam Extremities Exam: Full ROM, Normal Inspection. absent: Pedal Edema, Tenderness - Back Exam Back Exam: NORMAL INSPECTION. absent: CVA tenderness (L), CVA tenderness (R) - Neurological Exam Neurological Exam: Alert, Awake, Oriented x3 - Psychiatric Exam Psychiatric exam: Normal Affect, Normal Mood - Skin Skin Exam: Dry, Intact, Normal Color, Warm Assessment and Plan - Assessment and Plan (Free Text) Assessment: Asthma 10/27: breathing much improved. patients vitals are stable. Duoneb 3 Mg/0.5 Mg (3 Ml) Ud) 3 ml INH RQ4 [facility] Solu-Medrol) 40 mg IV Q6 [facility] Substance Abuse UDS positive for cocain and opiates Prophylaxis heparin 5000u SC Q12H Pepcid 40mg qD Case discussed with attending. All medical management as per Dr. Leida Mejia.
--- NOTE | 2017-10-27 08:53 | CARD ---
APPROVED REPORT Date of service: 10/26/2017 EKG Measurement Heart [id number] <Conclusion> Normal sinus rhythm Normal ECG
--- NOTE | 2017-10-27 09:39 | HP ---
Copied To: Bryan Mejia MD Attending MD: Bryan Mejia MD HISTORY OF PRESENT ILLNESS: Ms. Mooney was admitted to the hospital with chief compliant of shortness of breath, weakness, fatigue, or tiredness. The patient has COPD, history of cigarette smoking. She came to the ER, advised admission. PHYSICAL EXAMINATION: GENERAL: The patient is awake, alert, and oriented. VITAL SIGNS: Temperature 98, pulse 90. HEENT: Within normal limits. NECK: Supple. CHEST: Symmetrical. HEART: Regular. ABDOMEN: Soft. EXTREMITIES: No edema. IMPRESSION AND PLAN: The patient is suffering from chronic obstructive pulmonary disease, bronchitis. The patient is to get bed rest. Supportive care. Bryan Mejia MD
[2017-10-27 11:27] LABS: BASO % 0.1 % (0.0-2.0); HEMOGLOBIN 10.9 g/dL (11.0-16.0); LYMPH # 0.3 K/uL (1.0-4.3); LYMPH % 2.6 % (20.0-40.0); MEAN CORPUSCULAR HEMOGLOBIN 31.4 pg (27.0-31.0); MEAN CORPUSCULAR HGB CONC 33.4 g/dL (33.0-37.0); MEAN PLATELET VOLUME 9.1 fL (7.2-11.7); MONO # 0.5 K/uL (0.0-0.8); MONO % 3.9 % (0.0-10.0); NEUT # 12.2 K/uL (1.8-7.0); NEUT % 93.4 % (50.0-75.0); PLATELET COUNT 217 K/uL (130-400); RBC 3.46 Mil/uL (3.80-5.20); WHITE BLOOD COUNT 13.1 K/uL (4.8-10.8)
[2017-10-27 11:40] LABS: ALB/GLOB RATIO 1.4 (1.0-2.1); ALBUMIN 3.4 g/dL (3.5-5.0); ALT/SGPT 76 U/L (9-52); AST/SGOT 57 U/L (14-36); BLOOD UREA NITROGEN 21 mg/dL (7-17); CALCIUM 8.7 mg/dl (8.6-10.4); GFR AFRICAN-AMERICAN > 60; GFR NON-AFRICAN AMERICAN > 60
[2017-10-27 11:48] LABS: ANISOCYTOSIS SLIGHT; BANDS 1 % (0-2); HYPOCHROMIC SLIGHT; LYMPHOCYTE 2 % (20-40); MONOCYTE 4 % (0-10); NEUTROPHIL 93 % (50-75); PLATELET ESTIMATE NORMAL (NORMAL); POIKILOCYTOSIS SLIGHT; TOTAL CELLS COUNTED 100
== END 2017-10-27 11:00 | disposition left against medical advice (07) ==
LOC: C.ER 23:25 → C.3T 10-26 01:54
PROVIDERS: ADMIT Internal Medicine Pulmonary Disease; ATTEND Internal Medicine Pulmonary Disease
DX: J45.901 Unspecified asthma with (acute) exacerbation (principal); F11.90 Opioid use, unspecified, uncomplicated; F14.10 Cocaine abuse, uncomplicated; F17.200 Nicotine dependence, unspecified, uncomplicated
CPT/HCPCS: 36415; 71045; 80053; 80320; 80324; 80345; 80346; 80349; 80353; 80358; 80361; 81001; 83992; 84703; 85025; 93005; 94640; 96374; 99285; G0378; J1644; J2920; J2930

== ENCOUNTER 2017-12-10 14:07 | Inpatient (IN) | payer OTHER ==
[2017-12-10 14:07] VITALS: BMI 25.7
[2017-12-10] MEDS ORDERED: Sodium Chloride 0.9% 1,000 ML IV ONE (15:14)
[2017-12-10] MEDS: Albuterol-Ipratrop 3 mg / 0.5 (3 ml) UD IH SCH ×3 (15:15→15:45)
--- NOTE | 2017-12-10 15:47 | C.PDOC ---
History Of Present Illness 52 y/o female presents to the ED complaining of wheezing associated with pain to the right side of chest. Patient notes she was seen in the ED at [facility] yesterday, had CXR and blood work done, and was told she has pneumonia. Records note that patient then eloped from the ED. Patient states she received a call this morning saying she had (+) blood cultures and to return for treatment. She admits to history of smoking. Patient also complains of subjective fever and cough. Denies any headache, chills, numbness, weakness, dizziness, or other complaints. Time Seen by Provider: 12/10/17 14:49 Chief Complaint (Nursing): Shortness Of Breath History Per: Patient History/Exam Limitations: no limitations Onset/Duration Of Symptoms: Days Current Symptoms Are (Timing): Still Present Past Medical History Reviewed: Historical Data, Nursing Documentation, Vital Signs Vital Signs: Last Vital Signs Temp 98.3 F 12/10/17 14:10 Pulse 90 12/10/17 14:10 Resp 20 12/10/17 14:10 BP 148/73 12/10/17 14:10 Pulse Ox 97 12/10/17 14:10 - Medical History PMH: Anxiety, Asthma, Back Problems, Bronchitis, COPD, Gastritis, Kidney Stones (RIGHT), Pneumonia, Chronic Kidney Disease Denies: HIV, HTN, Seizures, Sexually Transmitted Disease - [facility] Procedures CLOSURE SKIN & SUBCUTANEOUS NEC (04/25/13) DETOXIFICATION SERVICES FOR SUBSTANCE ABUSE TREATMENT (05/23/16) INDIV PSYCHOTHERAPY FOR SUBSTANCE ABUSE TREATMENT, SUPPORT (05/23/16) INJECT/INFUSE NEC (06/22/14) INTRODUCTION OF ANTI-INFLAM INTO RESP TRACT, VIA OPENING (03/16/15) INTRODUCTION OF SERUM/TOX/VACCINE INTO MUSCLE, PERC APPROACH (03/16/15) MEDICATION MANAGEMENT (05/23/16) MEDS MGMT FOR SUBSTANCE ABUSE TREATMENT, METHADONE MAINT (05/23/16) NEBULIZER THERAPY (06/22/14) TETANUS TOXOID ADMINIST (04/25/13) Family History: States: Unknown Family Hx - Social History Hx Tobacco Use: Yes (3-4 cigarettes a day) Hx Alcohol Use: Yes Hx Substance Use: Yes (Heroin - 'sniff') - Immunization History Hx Tetanus Toxoid Vaccination: Yes Hx Influenza Vaccination: Yes Hx Pneumococcal Vaccination: Yes Review Of Systems Except As Marked, All Systems Reviewed And Found Negative. Constitutional: Negative for: Fever, Chills, Sweats Cardiovascular: Positive for: Chest Pain (right side). Negative for: Palpitations Respiratory: Positive for: Wheezing. Negative for: Shortness of Breath Gastrointestinal: Negative for: Nausea, Vomiting, Diarrhea Neurological: Negative for: Weakness, Headache, Dizziness Physical Exam - Physical Exam Appears: Non-toxic, No Acute Distress Skin: Normal Color, Warm, Dry Head: Atraumatic, Normacephalic Eye(s): bilateral: Normal Inspection, PERRL, EOMI Oral Mucosa: Moist Neck: Normal ROM, Supple Chest: Symmetrical, Tenderness (Reproducible right chest wall tenderness) Cardiovascular: Rhythm Regular Respiratory: No Accessory Muscle Use, Rhonchi, Wheezing (Expiratory wheezing in both lung perez) Gastrointestinal/Abdominal: Soft, No Tenderness, No Distention Extremity: Bilateral: Atraumatic, Normal Color And Temperature, Normal ROM Neurological/Psych: Oriented x3, Normal Speech ED Course And Treatment - Laboratory Results Result Diagrams: 12/10/17 16:04 12/10/17 16:04 Lab Interpretation: Abnormal O2 Sat by Pulse Oximetry: 97 (RA) Pulse Ox Interpretation: Normal - Other Rad CXR X-Ray: Read By Radiologist Interpretation: Accession No. : [id number]. Patient Name / ID : NAVI MEDEIROS / [id number]. Exam Date : 12/10/2017 15:25:47 ( Approved ). Study Comment : Sex / Age : F / 52Y. Creator : Casie Wetzel MD. Dictator : Casie Wetzel MD. Joy Operator : Computer Repair Technician : Casie Wetzel MD. Approver2 : Report Date : 12/10/2017 16:12:35. My Comment : . HISTORY: SOB. COMPARISON: Chest x-ray performed 11/17/17. TECHNIQUE: Chest PA and lateral. FINDINGS: LUNGS: Hyperinflation may be seen in the setting of COPD. Large hazy region involving the right mid to lower lobe suspicious for pneumonia. Please note that chest x-ray has limited sensitivity for the detection of pulmonary masses. PLEURA: No significant pleural effusion identified. No definite pneumothorax . CARDIOVASCULAR: Heart size appears top normal. Atherosclerotic calcifications of the aortic knob. OSSEOUS STRUCTURES: Degenerative changes. VISUALIZED UPPER ABDOMEN: Unremarkable. OTHER FINDINGS: None. IMPRESSION: Large hazy region involving the right mid to lower lobe suspicious for pneumonia; CT of the chest may be considered for further evaluation. Biapical pleural thickening. Hyperinflation. Progress Note: Treated with duoneb x 3, rocephin and zofran - Physician Consult Information Time Consulting Physician Contacted: 16:39 Physician Contacted: Bryan Mejia Outcome Of Conversation: Discussed with Dr. Mejia, patient accepted for admission. Patient started on IV zithro and rocephin. Medical Decision Making Medical Decision Making: Impression: 52 year old with wheezing and chest tightness Plan: --CMP --CBC --Urinalysis --Blood culture --Duoneb 3 ml Q15 --Prednisone 60 mg PO --IV fluids --Reassess and dispo Disposition Discussed With Dr.: Brayn Mejia Doctor Will See Patient In The: Hospital Counseled Patient/Family Regarding: Studies Performed, Diagnosis - Disposition Disposition: HOSPITALIZED Disposition Time: 16:40 Condition: IMPROVED Forms: [facility] (Vietnamese) - POA Present On Arrival: None - Clinical Impression Clinical Impression: Pneumonia - PA / FINANCIAL AGENT / Resident Statement MD/DO has reviewed & agrees with the documentation as recorded. - Scribe Statement The provider has reviewed the documentation as recorded by the Scribe (Dominga Mario) All medical record entries made by the Scribe were at my direction and personally dictated by me. I have reviewed the chart and agree that the record accurately reflects my personal performance of the history, physical exam, medical decision making, and the department course for this patient. I have also personally directed, reviewed, and agree with the discharge instructions and disposition. Decision To Admit - Pt Status Changed To: Hospital Disposition Of: Inpatient - Admit Certification Admit to Inpatient:: After my assessment, the patient will require hospitalization for at least two midnights. This is because of the severity of symptoms shown, intensity of services needed, and/or the medical risk in this patient being treated as an outpatient. - InPatient: Physician Admission Certification: I certify that this patient requires 2 or more midnights of care for the following reason:: Pneumonia - . Bed Request Type: Regular Admitting Physician: Bryan Mejia Patient Diagnosis: Pneumonia
[2017-12-10 16:07] LABS: BASO % 0.3 % (0.0-2.0); HEMOGLOBIN 11.3 g/dL (11.0-16.0); LYMPH # 0.6 K/uL (1.0-4.3); LYMPH % 4.5 % (20.0-40.0); MEAN CELL VOLUME 93.2 fL (81.0-99.0); MEAN CORPUSCULAR HEMOGLOBIN 31.2 pg (27.0-31.0); MEAN CORPUSCULAR HGB CONC 33.4 g/dL (33.0-37.0); MEAN PLATELET VOLUME 7.9 fL (7.2-11.7); MONO # 0.6 K/uL (0.0-0.8); NEUT # 12.6 K/uL (1.8-7.0); NEUT % 91.2 % (50.0-75.0); RBC 3.62 Mil/uL (3.80-5.20); RED CELL DISTRIBUTION WIDTH 13.6 % (11.5-14.5); WHITE BLOOD COUNT 13.8 K/uL (4.8-10.8)
[2017-12-10 16:09] LABS: PLATELET COUNT 379 K/uL (130-400)
--- NOTE | 2017-12-10 16:15 | RAD ---
HISTORY: SOB COMPARISON: Chest x-ray performed 11/17/17 TECHNIQUE: Chest PA and lateral FINDINGS: LUNGS: Hyperinflation may be seen in the setting of COPD. Large hazy region involving the right mid to lower lobe suspicious for pneumonia Please note that chest x-ray has limited sensitivity for the detection of pulmonary masses. PLEURA: No significant pleural effusion identified. No definite pneumothorax . CARDIOVASCULAR: Heart size appears top normal. Atherosclerotic calcifications of the aortic knob. OSSEOUS STRUCTURES: Degenerative changes. VISUALIZED UPPER ABDOMEN: Unremarkable. OTHER FINDINGS: None. IMPRESSION: Large hazy region involving the right mid to lower lobe suspicious for pneumonia; CT of the chest may be considered for further evaluation. Biapical pleural thickening. Hyperinflation.
[2017-12-10 16:20] LABS: ALB/GLOB RATIO 1.2 (1.0-2.1); ALBUMIN 3.6 g/dL (3.5-5.0); ALT/SGPT 41 U/L (9-52); AST/SGOT 24 U/L (14-36); BLOOD UREA NITROGEN 20 mg/dL (7-17); CALCIUM 8.9 mg/dl (8.6-10.4); GFR NON-AFRICAN AMERICAN > 60; SQUAMOUS EPITHIAL 17 /hpf (0-5); URINE BACTERIA RARE (<OCC); URINE BILIRUBIN NEGATIVE (NEGATIVE); URINE BLOOD NEGATIVE (NEGATIVE); URINE CLARITY Hazy (Clear); URINE COLOR Yellow (YELLOW); URINE GLUCOSE (UA) NORMAL (Normal); URINE LEUKOCYTE ESTERASE NEG Leu/uL (Negative); URINE PROTEIN 1+ mg/dL (NEGATIVE)
[2017-12-10] MEDS ORDERED: cefTRIAXone IV 1 gm in Dextros 50 ML IV ONE (16:24)
[2017-12-10] MEDS ORDERED: Sodium Chloride 0.9% 1,000 ML ONE (16:29)
[2017-12-10] MEDS ORDERED: Azithromycin 500mg/250ML NS 500 MG/250 ML BAG IV ONE (16:30)
[2017-12-10] MEDS ORDERED: Albuterol-Ipratrop 3 mg / 0.5 (3 ml) UD ONE (16:30)
[2017-12-10 16:40] LABS: ANISOCYTOSIS SLIGHT; HYPOCHROMIC SLIGHT; LYMPHOCYTE 4 % (20-40); MONOCYTE 4 % (0-10); NEUTROPHIL 92 % (50-75); PLATELET ESTIMATE NORMAL (NORMAL); POIKILOCYTOSIS SLIGHT; TOTAL CELLS COUNTED 100
[2017-12-10 16:41] LABS: LARGE PLATELETS PRESENT; TARGET CELLS SLIGHT
[2017-12-10] MEDS ORDERED: Azithromycin 500mg/250ML NS 500 MG/250 ML BAG IVPB ONE (17:09)
[2017-12-10] MEDS ORDERED: cefTRIAXone 1 gm 1 GM/100 ML BAG IVPB ONE (17:59)
[2017-12-10] MEDS: Azithromycin 500mg/250ML NS 500 MG/250 ML BAG IVPB SCH (20:41)
[2017-12-10 21:03] VITALS: RESP 20
[2017-12-10] MEDS: Oxycodone/Acetaminophen 5/325 mg Tab PO PRN (21:11)
[2017-12-10] MEDS: Albuterol-Ipratrop 3 mg / 0.5 (3 ml) UD INH SCH (23:47)
[2017-12-11] MEDS: Albuterol-Ipratrop 3 mg / 0.5 (3 ml) UD INH SCH ×5 (03:43→21:00)
[2017-12-11] MEDS: Oxycodone/Acetaminophen 5/325 mg Tab PO PRN ×4 (03:45→16:35)
--- NOTE | 2017-12-11 07:28 | CP.PCM.PN ---
Subjective - Date & Time of Evaluation Date of Evaluation: 12/11/17 Time of Evaluation: 07:28 - Subjective Subjective: PGY2 Medicine Note for Dr. Mejia Patient was seen and examined this morning at bedside. She came to the emergency room because she was called about a positive blood culture. Patient states that she is starting to go through withdrawals. She relapsed a month ago and last snorted 6 bags of heroin last night prior to coming into the emergency room. She is requesting methadone to help her while she gets treatment for her pneumonia/bacteremia. Objective - Vital Signs/Intake and Output Vital Signs (last 24 hours): Temp Pulse Resp BP Pulse Ox 98.2 F 64 20 149/80 96 12/11/17 00:00 12/11/17 00:00 12/11/17 00:00 12/11/17 00:00 12/11/17 00:00 Intake and Output: 12/11/17 12/11/17 06:59 18:59 Intake Total 250 Balance 250 - Medications Medications: Current Medications Albuterol/Ipratropium (Duoneb 3 Mg/0.5 Mg (3 Ml) Ud) 3 ml INH RQ4 HARPREET Last Admin: 12/11/17 07:14 Dose: Not Given Enoxaparin Sodium (Lovenox) 40 mg SC DAILY HARPREET Home Med (Prednisone [Prednisone]) 50 mg PO DAILY HARPREET Ceftriaxone Sodium (Rocephin Iv 1 Gm Duplex) 50 mls @ 100 mls/hr IVPB DAILY HARPREET; Protocol Azithromycin (Zithromax 500mg In Ns Addvantage) 500 mg in 250 mls @ 167 mls/hr IVPB Q24H HARPREET; Protocol Last Admin: 12/10/17 20:41 Dose: Not Given Oxycodone/Acetaminophen (Percocet 5/325 Mg Tab) 1 tab PO Q4H PRN PRN Reason: Pain, moderate (4-7) Stop: 12/13/17 20:31 Last Admin: 12/11/17 03:45 Dose: 1 tab Pneumococcal Polyvalent Vaccine (Pneumovax 23 Vaccine) 0.5 ml IM .ONCE ONE Stop: 12/13/17 10:01 Zolpidem Tartrate (Ambien) 5 mg PO HS PRN PRN Reason: Insomnia - Labs Labs: 12/10/17 16:04 12/10/17 16:04 - Constitutional Appears: Non-toxic, No Acute Distress - Head Exam Head Exam: ATRAUMATIC, NORMOCEPHALIC - Eye Exam Eye Exam: Normal appearance - ENT Exam ENT Exam: Mucous Membranes Moist - Respiratory Exam Respiratory Exam: Rales (throughout b/l), Wheezes (b/l), NORMAL BREATHING PATTERN. absent: Accessory Muscle Use, Rhonchi, Respiratory Distress - Cardiovascular Exam Cardiovascular Exam: REGULAR RHYTHM, +S1 - GI/Abdominal Exam GI & Abdominal Exam: Soft. absent: Distended, Firm, Guarding, Rigid, Tenderness - Extremities Exam Extremities Exam: absent: Calf Tenderness, Pedal Edema - Neurological Exam Neurological Exam: Alert, Awake, Oriented x3 - Psychiatric Exam Psychiatric exam: Normal Affect, Normal Mood - Skin Skin Exam: Dry, Warm Assessment and Plan - Assessment and Plan (Free Text) Plan: Right mid-lower lobe Pneumonia COPD CXR 12/10: * Large hazy region involving the right mid to lower lobe suspicious for pneumonia; CT of the chest may be considered for further evaluation. * Biapical pleural thickening. * Hyperinflation. Medications * Azithromycine 500mg IVPB q24h (started on 12/11) * Rocephin 1gm IVPB daily (started on 12/11) * Duoneb 3mL INH q4h * Prednisone 50mg PO daily Bacteremia Blood culture (12/07): positive for Staph Aureus * repeat blood culture (12/09): positive for Staph Aureus * repeat blood culture (12/10): positive for Gram Positive Cocci Patient denies every injecting drugs and only snorting them. ECHO: pending (to r/o endocarditis due to hx of drug use) Medications * Nafcillin 2gm IVPB q4h (started on 12/11) Opioid/Cocaine withdrawal Psych Consulted, Dr. Jihan Tompkins (12/09): positive for opiates and cocaine Patient admits to snorting heroin and denies ever using Given Methadone 10mg once Insomnia Continue Ambien 5mg PO HS prn Prophylactic Measure Lovenox 40mg SC daily GI prophylaxis: Protonix 40 mg PO daily All medical management per Dr. Jackie Birch Karma PGY2
[2017-12-11] MEDS ORDERED: Home Med 1 UNIT (Prednisone [Prednisone] 50 MG) PO SCH (10:00)
[2017-12-11] MEDS ORDERED: cefTRIAXone IV 1 gm in Dextros 50 ML IVPB SCH (10:00)
[2017-12-11] MEDS: Enoxaparin 40 mg Syringe SC SCH (10:49)
--- NOTE | 2017-12-11 16:55 | PCM.PSYCH ---
Addendum entered and electronically signed by Reyna Cowan MD 12/12/17 10:10: Pt seen and evaluated with the resident. Agree with the findings. Original Note: Initial Psychiatric Evaluation - Initial Psychiatric Evaluation Type of Admission: Voluntary Legal Status: Capacity Chief Complaint (in patient's own words): "I need more methadone." History of Present Illness and Precipitating Events: Patient seen, chart reviewed, case discussed. Ms. Mooney is a 52 year old female, single with 6 adult children PMH asthma hospitalized for pneumonia as an exacerbation of her asthma. Consulted for heroin use and methadone taper. She is homeless and jobless, and relapsed one month ago with no definable trigger. Supports herself by begging on [address]. She started using some time in her 30s. She has been snorting 15-20 bags of heroin daily and sniffing cocaine weekly. She has been to detox twice and rehab twice; both with poor results. Her longest period of sobriety was 2 years over a decade ago. She also smokes 1 ppd of cigarettes and is requesting a nicotine patch, denies ever alcohol. Complaining of chills, tremors, diarrhea and other withdrawal symptoms despite the medicine team giving her 10mg Methadone. Denies SI/HI, AVH. PMH: asthma Psych: depression, anxiety Meds: Seroquel - discontinued years ago FamHx: both sides have anxiety depression, denies SA Legal: incarcerated for 9 months for drug possession and skipping parole in 2013 ED: UDS + for opiates and cocaine Current Medications: Active Medications Generic Name Dose Route Start Last Admin Trade Name Freq PRN Reason Stop Dose Admin Albuterol/Ipratropium 3 ml 12/11/17 00:00 12/11/17 16:03 Duoneb 3 Mg/0.5 Mg (3 Ml) Ud INH 3 ml RQ4 HARPREET Administration Enoxaparin Sodium 40 mg 12/11/17 10:00 12/11/17 10:49 Lovenox SC 40 mg DAILY HARPREET Administration Azithromycin 500 mg in 250 mls @ 167 mls/hr 12/10/17 20:30 12/10/17 20:41 Zithromax 500mg In Ns Addvantage IVPB Not Given Q24H HARPREET Protocol Ceftriaxone Sodium 1 gm/ 100 mls @ 100 mls/hr 12/11/17 11:00 12/11/17 10:55 Sodium Chloride IVPB 100 mls/hr DAILY HARPREET Administration Protocol Nafcillin Sodium 2 gm/ Sodium 250 mls @ 250 mls/hr 12/11/17 16:00 Chloride IVPB Q4H HARPREET Protocol Influenza Virus Vaccine 60 mcg 12/13/17 10:00 Fluzone Quad [id number] IM 12/13/17 10:01 .ONCE ONE Oxycodone/Acetaminophen 1 tab 12/10/17 20:30 12/11/17 16:35 Percocet 5/325 Mg Tab PO 12/13/17 20:31 1 tab Q4H PRN Administration Pain, moderate (4-7) Pneumococcal Polyvalent Vaccine 0.5 ml 12/13/17 10:00 Pneumovax 23 Vaccine IM 12/13/17 10:01 .ONCE ONE Prednisone 50 mg 12/12/17 10:00 Prednisone Tab PO DAILY HARPREET Zolpidem Tartrate 5 mg 12/10/17 20:30 Ambien PO HS PRN Insomnia Past Psychiatric History - Past Psychiatric History Pertinent Medical Hx (Current Medical&Sleep Prob, Allergies): Allergies Allergy/AdvReac Type Severity Reaction Status Date / Time No Known Allergies Allergy Verified 12/10/17 14:15 Albuterol HFA [Ventolin HFA 90 mcg/actuation (8 g)] 0.09 mg IH DAILY PRN 12/10/17 Azithromycin [Zithromax] 250 mg PO DAILY 12/10/17 Prednisone 50 mg PO DAILY 12/10/17 Review of Systems - Psychiatric Psychiatric: Abnormal Sleep Pattern, Anxiety, Depression, Hopelessness. absent: Hallucinations, Homicidal Ideation, Suicidal Ideation Mental Status Examination - Personal Presentation Personal Presentation: Looks older than stated age - Affect Affect: Broad - Motor Activity Motor Activity: Calm - Reliability in Providing Information Reliability in Providing Information: Fair - Speech Speech: Organized - Mood Mood: Depressed, Anxious - Formal Thought Process Formal Thought Process: No Impairment - Cognitive Functions Orientation: Person, Place, Situation, Time Sensorium: Alert Attention/Concentration: Attentive Abstract Thinking: [place] Estimate of Intelligence: Average Judgement: Intact, as evidence by: Insight regarding need for hospitalization Memory: Recent intact, as evidence by: Ability to recall events of the day, Remote impaired as evidenced by: Inability to recall sig life events - Risk Risk: Withdrawal, Diminished functioning - Limitations Limitations: Living alone DSM 5 DX - DSM 5 DSM 5 Diagnosis: Opioid use disorder - severe Opioid withdrawal Cocaine use - moderate Generalized Anxiety disorder - Recommended/Plan of Treatment Treatment Recommendations and Plan of Treatment: Taper with methadone. Gabapentin for augmentation if needed. As needed medications. All risks, benefits and alternatives of the meds discussed, and the patient agreed and understood. Supportive therapy and psychoeducation. NH for abstinence. CBT for relapse prevention. Encourage MAT and adherence to after care instructions. Refer to rehab or IOP and self-help groups if patient is open. Patient states disinterest at this time. Smoking cessation with NH - nicotine patch daily. 32 min - Smoking Cessation Smoking Cessation Initiated: Yes
--- NOTE | 2017-12-11 19:51 | CP.PCM.PCO ---
Physician Communication Note - Physician Communication Note Physician Communication Note: RN called: 10 mg added, UDS and detox ordered, Percocet d/c'ed b/c of detox
[2017-12-11] MEDS: Azithromycin 500mg/250ML NS 500 MG/250 ML BAG IVPB SCH (20:30)
[2017-12-11 21:34] LABS: BARBITURATES, UR NEGATIVE (NEGATIVE); BENZODIAZEPINES, UR NEGATIVE (NEGATIVE); OPIATES, UR POSITIVE (NEGATIVE); PHENCYCLIDINE, UR NEGATIVE (NEGATIVE)
--- NOTE | 2017-12-11 21:44 | CARD ---
APPROVED REPORT Date of service: 12/11/2017 EXAM: Two-dimensional and M-mode echocardiogram with Doppler and color Doppler. Other Information Quality : GoodRhythm : INDICATION Dyspnea Infection:Rule out subacute bacterial endocarditis Pnuemonia 2D DIMENSIONS IVSd0.7 (0.7-1.1cm)LVDd4.6 (3.9-5.9cm) PWd1.0 (0.7-1.1cm)LA Jaynnm45 (18-58mL) LVDs3.4 (2.5-4.0cm)FS (%) 24.6 % LVEF (%)48.9 (>50%)LVEF (Archibald's)63.33 % IVC0.00 cm M-Mode DIMENSIONS RVDd2.36 (2.1-3.2cm)Left Atrium (MM)3.87 (2.5-4.0cm) IVSd0.97 (0.7-1.1cm)Aortic Root2.98 (2.2-3.7cm) LVDd5.73 (4.0-5.6cm)Aortic Cusp Exc.1.80 (1.5-2.0cm) PWd0.94 (0.7-1.1cm)FS (%) 44 % LVDs3.19 (2.0-3.8cm)TAPSE20.82 cm LVEF (%)75 (>50%) Mitral Valve MV E Yfpmhdme865.4cm/sMV A Nbbxskkv485.4cm/sE/A ratio1.0 TDI Lateral E' Peak V11.90cm/sMedial E' Peak V8.61cm/sE/Lateral E'8.5 E/Medial E'11.8 Tricuspid Valve TR Peak Xnwlozwk282ic/sTR Peak Gr.[id number] LEFT VENTRICLE The left ventricle is normal size. There is normal left ventricular wall thickness. Left ventricle systolic function is normal. The Ejection Fraction is >70%. There is normal LV segmental wall motion. The left ventricular diastolic function is normal. No left ventricle thrombus noted on this study. RIGHT VENTRICLE The right ventricle is normal size. The right ventricular systolic function is normal. ATRIA The left atrium size is normal. The right atrium size is normal. AORTIC VALVE The aortic valve is thickened. The aortic valve is trileaflet. No aortic regurgitation is present. There is no aortic valvular stenosis. There is no aortic valvular vegetation. MITRAL VALVE Mitral annular calcification is mild. There is no evidence of mitral valve prolapse. There is no mitral valve stenosis. Mitral regurgitation is mild. TRICUSPID VALVE The tricuspid valve is normal in structure. There is moderate tricuspid regurgitation. Right ventricular systolic pressure is estimated at 50-60 mmHg. There is moderate pulmonary hypertension. There is no tricuspid valve prolapse or vegetation. There is no tricuspid valve stenosis. PULMONIC VALVE The pulmonic valve is not well visualized. There is no pulmonic valvular regurgitation. GREAT VESSELS The aortic root is normal in size. The IVC is normal in size and collapses >50% with inspiration. PERICARDIAL EFFUSION There is no pericardial effusion. There is no pleural effusion. <Conclusion> The left ventricle is normal size. Left ventricle systolic function is normal. The Ejection Fraction is >70%. The left ventricular diastolic function is normal. The right ventricle is normal size. The right ventricular systolic function is normal. The left atrium size is normal. The right atrium size is normal. Mitral regurgitation is mild. There is moderate tricuspid regurgitation. There is moderate pulmonary hypertension.
[2017-12-12] MEDS: Albuterol-Ipratrop 3 mg / 0.5 (3 ml) UD INH SCH ×6 (00:41→21:07)
--- NOTE | 2017-12-12 09:04 | CP.PCM.PN ---
Subjective - Date & Time of Evaluation Date of Evaluation: 12/12/17 Time of Evaluation: 09:04 - Subjective Subjective: PGY2 Medicine Note for Dr. Mejia Patient seen and examined this morning at bedside. Patient states that she did not sleep at all last night due to withdrawal pains and coughing. She is starting to complain of pleuritic chest pain 2/2 to the cough. She has no specific chest pain when she is not coughing. Her withdrawal pains are non- specific and are located throughout her entire body. She is requesting an increase in her methadone taper. Objective - Vital Signs/Intake and Output Vital Signs (last 24 hours): Temp Pulse Resp BP Pulse Ox 100.0 F H 92 H 20 161/90 H 96 12/12/17 07:11 12/12/17 07:11 12/12/17 07:11 12/12/17 07:11 12/12/17 07:11 Intake and Output: 12/12/17 12/12/17 06:59 18:59 Intake Total 700 Balance 700 - Medications Medications: Current Medications Albuterol/Ipratropium (Duoneb 3 Mg/0.5 Mg (3 Ml) Ud) 3 ml INH RQ4 HARPREET Last Admin: 12/12/17 07:46 Dose: Not Given Enoxaparin Sodium (Lovenox) 40 mg SC DAILY HARPREET Last Admin: 12/11/17 10:49 Dose: 40 mg Azithromycin (Zithromax 500mg In Ns Addvantage) 500 mg in 250 mls @ 167 mls/hr IVPB Q24H HARPREET; Protocol Last Admin: 12/11/17 20:30 Dose: 167 mls/hr Ceftriaxone Sodium 1 gm/ (Sodium Chloride) 100 mls @ 100 mls/hr IVPB DAILY HARPREET; Protocol Last Admin: 12/11/17 10:55 Dose: 100 mls/hr Nafcillin Sodium 2 gm/ Sodium (Chloride) 250 mls @ 250 mls/hr IVPB Q4H HARPREET; Protocol Last Admin: 12/12/17 09:00 Dose: 250 mls/hr Influenza Virus Vaccine (Fluzone Quad [id number]) 60 mcg IM .ONCE ONE Stop: 12/13/17 10:01 Methadone HCl (Methadone) 0 mg PO Q24H HARPREET; Taper Stop: 12/16/17 09:59 Pneumococcal Polyvalent Vaccine (Pneumovax 23 Vaccine) 0.5 ml IM .ONCE ONE Stop: 12/13/17 10:01 Prednisone (Prednisone Tab) 50 mg PO DAILY HARPREET Zolpidem Tartrate (Ambien) 5 mg PO HS PRN PRN Reason: Insomnia - Labs Labs: 12/10/17 16:04 12/10/17 16:04 - Additional Findings Additional findings: - Constitutional Appears: Non-toxic, No Acute Distress - Head Exam Head Exam: ATRAUMATIC, NORMOCEPHALIC - Eye Exam Eye Exam: Normal appearance - ENT Exam ENT Exam: Mucous Membranes Moist - Respiratory Exam Respiratory Exam: Rales (throughout b/l), Wheezes (b/l), NORMAL BREATHING PATTERN. absent: Accessory Muscle Use, Rhonchi, Respiratory Distress - Cardiovascular Exam Cardiovascular Exam: REGULAR RHYTHM, +S1 - GI/Abdominal Exam GI & Abdominal Exam: Soft. absent: Distended, Firm, Guarding, Rigid, Tenderness - Extremities Exam Extremities Exam: absent: Calf Tenderness, Pedal Edema - Neurological Exam Neurological Exam: Alert, Awake, Oriented x3 - Psychiatric Exam Psychiatric exam: Normal Affect, Normal Mood - Skin Skin Exam: Dry, Warm Assessment and Plan - Assessment and Plan (Free Text) Plan: Right mid-lower lobe Pneumonia COPD CXR 12/10: * Large hazy region involving the right mid to lower lobe suspicious for pneumonia; CT of the chest may be considered for further evaluation. * Biapical pleural thickening. * Hyperinflation. Medications * Azithromycin 500mg IVPB q24h (started on 12/11) - discontinued * Rocephin 1gm IVPB daily (started on 12/11) - discontinued * Nafcillin 2gm IVPB q4h (started on 12/11) * Duoneb 3mL INH q4h * Prednisone 50mg PO daily Bacteremia Infectious Disease consulted, Dr. Sorenson Blood culture (12/07): positive for Staph Aureus * repeat blood culture (12/09): positive for Staph Aureus x 2 * repeat blood culture (12/10): No growth at 24 hours Patient denies every injecting drugs and only snorting them. ECHO (12/11/17): EF >70%, normal diastolic function, mild MR, moderate TR and moderate pulm HTN, no vegetations on Tricuspid or Aortic Valve noted. Medications * Nafcillin 2gm IVPB q4h (started on 12/11) Opioid/Cocaine withdrawal Psych Consulted, Dr. Bobo * Methadone taper per Psych * referral to rehab or IOP and self-help groups - pt states disinterest at this time. Utox (12/11): positive for opiates and cocaine Patient admits to snorting heroin and denies ever using IV drugs Insomnia Continue Ambien 5mg PO HS prn Prophylactic Measure Lovenox 40mg SC daily GI prophylaxis: Protonix 40 mg PO daily All medical management per Dr. Jackie Birch Karma PGY2
[2017-12-12] MEDS: Enoxaparin 40 mg Syringe SC SCH (09:41)
--- NOTE | 2017-12-12 17:52 | CP.PCM.CON ---
History of Present Illness - History of Present Illness History of Present Illness: 52 y/o female presents to the ED complaining of wheezing associated with pain to the right side of chest. long hx of asthma / copd found to have bacteremic pneumonia echo neg for vegetation - Medical History PMH: Anxiety, Asthma, Back Problems, Bronchitis, COPD, Gastritis, Kidney Stones (RIGHT), Pneumonia, Chronic Kidney Disease Denies: HIV, HTN, Seizures, Sexually Transmitted Disease - [facility] Procedures CLOSURE SKIN & SUBCUTANEOUS NEC (04/25/13) DETOXIFICATION SERVICES FOR SUBSTANCE ABUSE TREATMENT (05/23/16) INDIV PSYCHOTHERAPY FOR SUBSTANCE ABUSE TREATMENT, SUPPORT (05/23/16) INJECT/INFUSE NEC (06/22/14) INTRODUCTION OF ANTI-INFLAM INTO RESP TRACT, VIA OPENING (03/16/15) INTRODUCTION OF SERUM/TOX/VACCINE INTO MUSCLE, PERC APPROACH (03/16/15) MEDICATION MANAGEMENT (05/23/16) MEDS MGMT FOR SUBSTANCE ABUSE TREATMENT, METHADONE MAINT (05/23/16) NEBULIZER THERAPY (06/22/14) TETANUS TOXOID ADMINIST (04/25/13) Review of Systems - Constitutional Constitutional: As Per HPI - EENT Eyes: absent: As Per HPI, Blind Spots, Blurred Vision, Change in Vision, Decreased Night Vision, Diplopia, Discharge, Dry Eye, Exophthalmos, Floaters, Irritation, Itchy Eyes, Loss of Peripheral Vision, Pain, Photophobia, Requires Corrective Lenses, Sees Flashes, Spots in Vision, Tunnel Vision, Other Visual Disturbances, Loss of Vision, Other Ears: absent: As Per HPI, Decreased Hearing, Ear Discharge, Ear Pain, Tinnitus, Abnormal Hearing, Disequilibrium, Dizziness, Other Nose/Mouth/Throat: absent: As Per HPI, Epistaxis, Nasal Congestion, Nasal Discharge, Nasal Obstruction, Nasal Trauma, Nose Pain, Post Nasal Drip, Sinus Pain, Sinus Pressure, Bleeding Gums, Change in Voice, Dental Pain, Dry Mouth, Dysphagia, Halitosis, Hoarsness, Lip Swelling, Mouth Lesions, Mouth Pain, Odynophagia, Sore Throat, Throat Swelling, Tongue Swelling, Facial Pain, Neck Pain, Neck Mass, Other - Breasts Breasts: absent: As Per HPI, Change in Shape, Mass, Pain, Nipple Discharge, Nipple Inversion, Skin Changes, Swelling, Other - Cardiovascular Cardiovascular: As Per HPI - Respiratory Respiratory: As Per HPI, Cough, Dyspnea. absent: Hemoptysis - Gastrointestinal Gastrointestinal: absent: As Per HPI, Abdominal Pain, Belching, Bloating, Change in Bowel Habits, Change in Stool Character, Coffee Ground Emesis, Constipation, Cramping, Diarrhea, Dyspepsia, Dysphagia, Early Satiety, Excessive Flatus, Fecal Incontinence, Heartburn, Hematemesis, Hematochezia, Loose Stools, Melena, Nausea, Odynophagia, Temesmus, Vomiting, Other - Genitourinary Genitourinary: absent: As Per HPI, Change in Urinary Stream, Difficulty Urinating, Dysuria, Flank Pain, Hematuria, Pyuria, Nocturia, Urinary Incontinence, Urinary Frequency, Urinary Hesitance, Urinary Urgency, Voiding Freq/Small Amts, Freq UTI, Hx Renal/Bladder Calculi, Hx /Renal Surgery, Bladder Distension, Other - Reproductive: Female Reproductive:Female: absent: As Per HPI, Amenorrhea, Amenorrhea/ Control, Currently Menstual, Cycle <21 Days, Cycle >35 Days, Cycle Variable, Menses 1-7 Days, Menses >/= 8 Days, Menses Variable, Cycle > 4 Weeks Between, No Menses for 6 Months, Heavy Menses, Light Menses, Normal Menses, Spotting Between Cycles, S/P Hysterectomy, Menopausal, Post Menopausal, Premenarche, Abnormal Vaginal Bleeding, Dysmenorrhea, Dyspareunia, Genital Lesions, Genital Pruritis, Pelvic Pain, Prolapse Symptoms, Sexual Dysfunction, Vaginal Discharge, Vaginal Dryness, Vaginal Odor, Vaginal Pruritis, Other - Menstruation Menstruation: absent: As Per HPI, Amenorrhea, Amenorrhea/ Control, Currently Menstual, Cycle <21 Days, Cycle >35 Days, Cycle Variable, Menses 1-7 Days, Menses >/= 8 Days, Menses Variable, Cycle > 4 Weeks Between, No Menses for 6 Months, Heavy Menses, Light Menses, Normal Menses, Spotting Between Cycles, S/P Hysterectomy, Menopausal, Post Menopausal, Premenarche, Abnormal Vaginal Bleeding, Dysmenorrhea, Other - Musculoskeletal Musculoskeletal: absent: As Per HPI, Abnormal Gait, Arthralgias, Atrophy, Back Pain, Deformity, Joint Swelling, Limited Range of Motion, Loss of Height, Muscle Cramps, Muscle Weakness, Myalgias, Neck Pain, Numbness, Radiating Pain into Limb, Stiffness, Tingling, Other - Integumentary Integumentary: absent: As Per HPI, Acne, Alopecia, Bleeding Lesions, Change in Hair, Change in Nails, Change in Pigmentation, Changing Lesions, Dry Skin, Erythema, Furuncle, Hirsutism, Lesions, New Lesions, Non-Healing Lesions, Photosensitivity, Pruritus, Rash, Skin Pain, Skin Ulcer, Sores, Striae, Swelling, Unusual Bruising, Wounds, Jaundice, Other - Neurological Neurological: absent: Abnormal Gait, Abnormal Hearing, Abnormal Movements, Abnormal Speech, Behavioral Changes, Burning Sensations, Confusion, Convulsions, Disequilibrium, Dizziness, Numbness, Focal Weakness, Frequent Falls, Headaches, Lack of Coordination, Loss of Vision, Memory Loss, Paresthesias, Radicular Pain, Restless Legs, Sensory Deficit, Syncope, Tingling, Tremor, Vertigo, Weakness, Other Visual Disturbances, Other - Psychiatric Psychiatric: absent: As Per HPI, Abnormal Sleep Pattern, Anhedonia, Anxiety, Au ditory Hallucinations, Behavioral Changes, Change in Appetite, Change in Libido, Confusion, Depression, Difficulty Concentrating, Hallucinations, Homicidal Ideation, Hopelessness, Irritability, Memory Loss, Mood Swings, Panic Attacks, Paranoia, Suicidal Ideation, Visual Hallucinations, Tactile Hallucinations, Other - Endocrine Endocrine: absent: As Per HPI, Change in Body Appearance, Change in Libido, Cold Intolorance, Deepening of Voice, Excessive Sweating, Fatigue, Flushing, Heat Intolorance, Increase in Ring/Shoe/Hat Size, Palpitations, Polydipsia, Suraj yphagia, Polyuria, Other - Hematologic/Lymphatic Hematologic: absent: As Per HPI, Easy Bleeding, Easy Bruising, Lymphadenopathy, Other Past Patient History - Infectious Disease Hx of Infectious Diseases: None - Past Medical History & Family History Past Medical History?: Yes - Past Social History Smoking Status: Heavy Smoker > 10 Cigarettes Daily - CARDIAC Hx Hypertension: No - PULMONARY Hx Respiratory Disorders: Yes Hx Asthma: Yes Hx Bronchitis: Yes Hx Chronic Obstructive Pulmonary Disease (COPD): Yes Hx Pneumonia: Yes - NEUROLOGICAL Hx Neurological Disorder: No Hx Seizures: No - HEENT Hx HEENT Problems: No - RENAL Hx Chronic Kidney Disease: Yes Hx Kidney Stones: Yes (RIGHT) - ENDOCRINE/METABOLIC Hx Endocrine Disorders: No - HEMATOLOGICAL/ONCOLOGICAL Hx Blood Disorders: No Hx Human Immunodeficiency Virus (HIV): No - INTEGUMENTARY Hx Dermatological Problems: No - MUSCULOSKELETAL/RHEUMATOLOGICAL Hx Musculoskeletal Disorders: No Hx Falls: No - GASTROINTESTINAL Hx Gastrointestinal Disorders: Yes Hx Gastritis: Yes - GENITOURINARY/GYNECOLOGICAL Hx Genitourinary Disorders: No Hx Sexually Transmitted Disorders: No - PSYCHIATRIC Hx Psychophysiologic Disorder: Yes Hx Anxiety: Yes Hx Substance Use: Yes (SNIFF HEROINE) - SURGICAL HISTORY Hx Surgeries: Yes Other/Comment: Kidney stone removal - ANESTHESIA Hx Anesthesia: Yes Hx Anesthesia Reactions: No Hx Malignant Hyperthermia: No Has any member of the family had a problem w/ anesthesia?: No Meds Allergies/Adverse Reactions: Allergies Allergy/AdvReac Type Severity Reaction Status Date / Time No Known Allergies Allergy Verified 12/10/17 14:15 - Medications Medications: Current Medications Albuterol/Ipratropium (Duoneb 3 Mg/0.5 Mg (3 Ml) Ud) 3 ml INH RQ4 [facility] Last Admin: 12/12/17 16:25 Dose: Not Given Benzonatate (Tessalon Perles) 100 mg PO TID [facility] Last Admin: 12/12/17 17:30 Dose: 100 mg Enoxaparin Sodium (Lovenox) 40 mg SC DAILY [facility] Last Admin: 12/12/17 09:41 Dose: 40 mg Nafcillin Sodium 2 gm/ Sodium (Chloride) 250 mls @ 250 mls/hr IVPB Q4H [facility]; Protocol Last Admin: 12/12/17 16:30 Dose: 250 mls/hr Influenza Virus Vaccine (Fluzone Quad 7311-5013) 60 mcg IM .ONCE ONE Stop: 12/13/17 10:01 Methadone HCl (Methadone) 15 mg PO Q24H [facility]; Taper Stop: 12/16/17 09:59 Last Admin: 12/12/17 09:39 Dose: 15 mg Pneumococcal Polyvalent Vaccine (Pneumovax 23 Vaccine) 0.5 ml IM .ONCE ONE Stop: 12/13/17 10:01 Prednisone (Prednisone Tab) 50 mg PO DAILY [facility] Last Admin: 12/12/17 09:41 Dose: 50 mg Zolpidem Tartrate (Ambien) 5 mg PO HS PRN PRN Reason: Insomnia Physical Exam - Constitutional Appears: No Acute Distress, Cachectic, Chronically Ill - Head Exam Head Exam: NORMOCEPHALIC - Eye Exam Eye Exam: PERRL. absent: Scleral icterus - ENT Exam ENT Exam: Mucous Membranes Dry - Neck Exam Neck exam: Negative for: Lymphadenopathy - Respiratory Exam Respiratory Exam: Decreased Breath Sounds, Prolonged Expiratory Phase, Rhonchi - Cardiovascular Exam Cardiovascular Exam: REGULAR RHYTHM, +S1, +S2 - GI/Abdominal Exam GI & Abdominal Exam: Diminished Bowel Sounds, Soft. absent: Tenderness - Rectal Exam Rectal Exam: Deferred - Exam Exam: NORMAL INSPECTION - Extremities Exam Extremities exam: Positive for: pedal pulses present. Negative for: calf tenderness, pedal edema, tenderness - Back Exam Back exam: absent: CVA tenderness (L), CVA tenderness (R), paraspinal tenderness - Neurological Exam Neurological exam: Alert, CN II-XII Intact, Oriented x3, Reflexes Normal - Psychiatric Exam Psychiatric exam: Depressed - Skin Skin Exam: Dry, Intact Results - Vital Signs Recent Vital Signs: Last Vital Signs Temp 98.6 F 12/12/17 16:00 Pulse 88 12/12/17 16:00 Resp 20 12/12/17 16:00 BP 138/82 12/12/17 16:00 Pulse Ox 97 12/12/17 16:00 - Labs Result Diagrams: 12/10/17 16:04 12/10/17 16:04 Labs: Laboratory Results - last 24 hr 12/11/17 20:08 Urine Opiates Screen Positive H Urine Methadone Screen Negative Ur Barbiturates Screen Negative Ur Phencyclidine Scrn Negative Ur Amphetamines Screen Negative U Benzodiazepines Scrn Negative U Oth Cocaine Metabols Positive H U Cannabinoids Screen Negative Assessment & Plan (1) Staphylococcus aureus bacteremia Status: Acute (2) Pneumonia Status: Acute Priority: High (3) Bronchitis Status: Acute - Assessment and Plan (Free Text) Assessment: consider CT chest to r/o mass/ abscess especially in view of recurrent fevers , c/o chest pain and physical findings
[2017-12-13] MEDS: Albuterol-Ipratrop 3 mg / 0.5 (3 ml) UD INH SCH ×4 (00:36→08:03)
[2017-12-13 07:55] LABS: HEPATITIS B SURFACE AG Negative (NEGATIVE)
[2017-12-13 08:00] LABS: HEPATITIS A IGM NEGATIVE (NEGATIVE); HEPATITIS B CORE AB NEGATIVE (NEGATIVE)
[2017-12-13 09:00] VITALS: BP 147/82; PULSE 98; TEMP 98; O2SAT 96
[2017-12-13 09:05] LABS: HEPATITIS C ANTIBODY REACTIVE (NEGATIVE)
[2017-12-13] MEDS: Enoxaparin 40 mg Syringe SC SCH ×2 (09:13→09:33)
[2017-12-13] MEDS: Influenza Vaccine 60 MCG/0.5 ML SYR (3 yr & up) IM ONE ×2 (09:13→09:31)
[2017-12-13] MEDS: Pneumococcal 23-Valent Vaccine IM ONE ×2 (09:15→09:32)
[2017-12-13] MEDS ORDERED: Iodixanol 320 MG/ML 100 ML BOTTLE IV ONE (09:31)
--- NOTE | 2018-01-07 13:00 | HP ---
HISTORY OF PRESENT ILLNESS: The patient is a 52-year-old female with a chief complaint of chest pain, shortness of breath, weakness, and fatigue. The patient has a long history of asthma, COPD, addiction to heroin, and anxiety. Came to the ER, advised admission. PHYSICAL EXAMINATION: GENERAL: The patient is awake alert, and oriented. VITAL SIGNS: Temperature 98, pulse 90. HEENT: Within normal limits. NECK: Supple. CHEST: Symmetrical. Decreased air entry. Bilateral wheezes. HEART: Regular. ABDOMEN: Soft. EXTREMITIES: No edema. ASSESSMENT AND PLAN: The patient suffers from chronic obstructive pulmonary disease, bronchitis, drug addiction, drug withdrawal. The patient is to bed rest. Supportive care. Bronchodilators. Psychiatric consult. Bryan Mejia MD
--- NOTE | 2018-01-07 13:04 | DS ---
The patient was admitted to the hospital with chief complaint of shortness of breath, weakness, fatigue, and tiredness. The patient was placed on bedrest, supportive care. The patient showed gradual improvement, discharged, to be followed as outpatient. Bryan Mejia MD
== END 2017-12-13 10:15 | disposition left against medical advice (07) | DRG 139 ==
LOC: C.ER 14:07 → C.9E 16:40 → C.3T 21:01
PROVIDERS: ADMIT Internal Medicine Pulmonary Disease; ATTEND Internal Medicine Pulmonary Disease
DX: J18.9 Pneumonia, unspecified organism (principal); J44.0 Chronic obstructive pulmonary disease with (acute) lower respiratory infection; F11.23 Opioid dependence with withdrawal; F14.90 Cocaine use, unspecified, uncomplicated; F17.210 Nicotine dependence, cigarettes, uncomplicated; F41.1 Generalized anxiety disorder; Z59.0 Homelessness; F32.9 Major depressive disorder, single episode, unspecified; J45.901 Unspecified asthma with (acute) exacerbation

== ENCOUNTER 2018-01-10 20:53 | Inpatient (IN) | payer OTHER ==
[2018-01-10 20:53] VITALS: BMI 22.8
--- NOTE | 2018-01-10 21:13 | C.PDOC ---
History Of Present Illness 52 y/o female, who still smokes 1 ppd, comes in complaining of SOB and wheezing. Patient was seen here for similar complaints 2 days ago and was given steroids and nebulizers. Patient felt better and was discharged home. She is speaking in full sentences and denies any fever, chills, chest pain, palpitations, cough, or recent travel. Time Seen by Provider: 01/10/18 21:13 Chief Complaint (Nursing): Shortness Of Breath History Per: Patient History/Exam Limitations: no limitations Onset/Duration Of Symptoms: Days Current Symptoms Are (Timing): Still Present Initiating Event: Other Current Respiratory Medications: None Severity: None Pain Scale Rating Of: 0 Associated Symptoms: denies: Fever, Chills Reports Similar Symptoms Previously Of: SOB and wheezing Reports Recently: Seen In ED Recent travel outside of the [place]: No Additional History Per: Patient Past Medical History Reviewed: Historical Data, Nursing Documentation, Vital Signs Vital Signs: Last Vital Signs Temp 97.7 F 01/10/18 21:06 Pulse 107 H 01/10/18 21:06 Resp 15 01/10/18 21:06 BP 148/85 01/10/18 21:06 Pulse Ox 94 L 01/10/18 21:06 - Medical History PMH: Anxiety, Asthma, Back Problems, Bronchitis, COPD, Gastritis, Kidney Stones (RIGHT), Pneumonia, Chronic Kidney Disease Denies: HIV, HTN, Seizures, Sexually Transmitted Disease - [facility] Procedures (01/05/18) CLOSURE SKIN & SUBCUTANEOUS NEC (04/25/13) DETOXIFICATION SERVICES FOR SUBSTANCE ABUSE TREATMENT (12/24/17) INDIV PSYCHOTHERAPY FOR SUBSTANCE ABUSE TREATMENT, SUPPORT (05/23/16) INJECT/INFUSE NEC (06/22/14) INTRODUCE OF OTH THERAP SUBST INTO RESP TRACT, VIA OPENING (12/16/17) INTRODUCTION OF ANTI-INFLAM INTO RESP TRACT, VIA OPENING (03/16/15) INTRODUCTION OF SERUM/TOX/VACCINE INTO MUSCLE, PERC APPROACH (03/16/15) MEDICATION MANAGEMENT (12/24/17) MEDS MGMT FOR SUBSTANCE ABUSE TREATMENT, METHADONE MAINT (12/24/17) NEBULIZER THERAPY (06/22/14) TETANUS TOXOID ADMINIST (04/25/13) Family History: States: No Known Family Hx - Social History Hx Tobacco Use: Yes (3-4 cigarettes a day) Hx Alcohol Use: Yes Hx Substance Use: Yes (heroin) - Immunization History Hx Tetanus Toxoid Vaccination: Yes Hx Influenza Vaccination: Yes Hx Pneumococcal Vaccination: Yes Review Of Systems Constitutional: Negative for: Fever, Chills Cardiovascular: Negative for: Chest Pain, Palpitations Respiratory: Positive for: Shortness of Breath, Wheezing. Negative for: Cough Gastrointestinal: Negative for: Nausea, Vomiting Neurological: Negative for: Weakness, Numbness Physical Exam - Physical Exam Appears: Non-toxic, In Acute Distress, Other (6/10 discomfort) Skin: Warm, Dry Head: Normacephalic Eye(s): bilateral: Normal Inspection Oral Mucosa: Moist Neck: Supple Chest: Symmetrical Cardiovascular: Rhythm Regular, No Murmur Respiratory: Decreased Breath Sounds, No Rales, No Rhonchi, Wheezing Gastrointestinal/Abdominal: Soft, No Tenderness Neurological/Psych: Oriented x3, Normal Speech ED Course And Treatment - Laboratory Results Result Diagrams: 01/10/18 21:50 01/10/18 21:50 O2 Sat by Pulse Oximetry: 94 (RA) Pulse Ox Interpretation: Normal Progress Note: Labs and chest x-ray ordered. Duoneb, solumedrol, and IV fluids administered. Critical Care Time - Critical Care Note Total Time (in mins): 30 Documented critical care: time excludes all time spent performing seperately billable procedures. Disposition Discussed With : Bryan Mejia Comment: acceptd the t on his service and took over the care at 10:42 PM Doctor Will See Patient In The: Hospital Counseled Patient/Family Regarding: Studies Performed, Diagnosis - Disposition Disposition: HOSPITALIZED Disposition Time: 21:13 Condition: FAIR Forms: [facility] (Swazi) - POA Present On Arrival: Poor Glycemic Control - Clinical Impression Clinical Impression: COPD exacerbation, Pneumonia - Scribe Statement The provider has reviewed the documentation as recorded by the Julian Hilliard Provider Attestation: All medical record entries made by the Julian were at my direction and personally dictated by me. I have reviewed the chart and agree that the record accurately reflects my personal performance of the history, physical exam, medical decision making, and the department course for this patient. I have also personally directed, reviewed, and agree with the discharge instructions and disposition. Decision To Admit - Pt Status Changed To: Hospital Disposition Of: Inpatient - Admit Certification Admit to Inpatient:: After my assessment, the patient will require hospitaliza tion for at least two midnights. This is because of the severity of symptoms shown, intensity of services needed, and/or the medical risk in this patient being treated as an outpatient. - InPatient: Physician Admission Certification: I certify that this patient requires 2 or more midnights of care for the following reason:: After my assessment, the patient will require hospitalization for at least two midnights. This is because of the severity of symptoms shown, intensity of services needed, and/or the medical risk in this patient being treated as an outpatient. - . Bed Request Type: Telemetry Admitting Physician: Bryan Mejia Patient Diagnosis: COPD exacerbation, Pneumonia
[2018-01-10] MEDS ORDERED: Albuterol-Ipratrop 3 mg / 0.5 (3 ml) UD ONE (21:31)
[2018-01-10] MEDS: Albuterol-Ipratrop 3 mg / 0.5 (3 ml) UD IH SCH (21:33)
[2018-01-10] MEDS ORDERED: Sodium Chloride 0.9% 1,000 ML IV ONE (21:35)
[2018-01-10] MEDS ORDERED: Sodium Chloride 0.9% 1,000 ML ONE (21:43)
[2018-01-10 22:01] LABS: BASO # 0.1 K/uL (0.0-0.2); BASO % 0.6 % (0.0-2.0); EOS % 0.4 % (0.0-4.0); HEMOGLOBIN 10.8 g/dL (11.0-16.0); LYMPH # 2.6 K/uL (1.0-4.3); LYMPH % 26.7 % (20.0-40.0); MEAN CORPUSCULAR HEMOGLOBIN 29.8 pg (27.0-31.0); MEAN PLATELET VOLUME 7.6 fL (7.2-11.7); MONO # 0.7 K/uL (0.0-0.8); MONO % 7.1 % (0.0-10.0); NEUT # 6.4 K/uL (1.8-7.0); NEUT % 65.2 % (50.0-75.0); RBC 3.62 Mil/uL (3.80-5.20); RED CELL DISTRIBUTION WIDTH 14.6 % (11.5-14.5); WHITE BLOOD COUNT 9.8 K/uL (4.8-10.8)
[2018-01-10 22:19] LABS: ALB/GLOB RATIO 1.2 (1.0-2.1); ALBUMIN 3.6 g/dL (3.5-5.0); ALT/SGPT 42 U/L (9-52); AST/SGOT 38 U/L (14-36); BLOOD UREA NITROGEN 16 mg/dL (7-17); CALCIUM 8.5 mg/dl (8.6-10.4); GFR NON-AFRICAN AMERICAN > 60
[2018-01-10] MEDS ORDERED: Moxifloxacin IV 400mg/250ml NS 400 MG/250 ML BAG IVPB ONE ×2 (22:34→22:52)
[2018-01-11 00:43] VITALS: RESP 20
[2018-01-11] MEDS: MethylPREDNISolone 40 mg Vial IVP SCH ×3 (00:52→23:41)
[2018-01-11] MEDS: Albuterol-Ipratrop 3 mg / 0.5 (3 ml) UD INH SCH ×6 (02:30→09:53)
--- NOTE | 2018-01-11 08:21 | PCM.PSYCH ---
Initial Psychiatric Evaluation - Initial Psychiatric Evaluation Type of Admission: Voluntary Legal Status: Capacity Current Medications: Active Medications Generic Name Dose Route Start Last Admin Trade Name Freq PRN Reason Stop Dose Admin Acetaminophen 650 mg 01/11/18 01:45 EST Tylenol 325mg Tab PO Q8 PRN Pain, moderate (4-7) Albuterol/Ipratropium 3 ml 01/11/18 00:00 01/11/18 08:07 Duoneb 3 Mg/0.5 Mg (3 Ml) Ud INH 01/11/18 10:01 3 ml RQ2 [facility] Administration Lorazepam 1 mg 01/10/18 23:59 Ativan PO PRN PRN Agitation Methylprednisolone 40 mg 01/11/18 00:00 01/11/18 00:52 Solu-Medrol IVP 40 mg Q12H [facility] Administration Zolpidem Tartrate 5 mg 01/10/18 23:57 01/11/18 02:03 Ambien PO 5 mg HS PRN Administration Insomnia Past Psychiatric History - Past Psychiatric History Pertinent Medical Hx (Current Medical&Sleep Prob, Allergies): Allergies Allergy/AdvReac Type Severity Reaction Status Date / Time No Known Allergies Allergy Verified 01/08/18 04:02 Albuterol HFA [Ventolin HFA 90 mcg/actuation (8 g)] 2 puff IH [id number] #1 puff 01/02/18 Gabapentin [Neurontin] 400 mg PO TID #90 cap 01/02/18 Mirtazapine [Remeron] 30 mg PO HS #30 tab 01/02/18 QUEtiapine [Seroquel] 100 mg PO HS #30 tab 01/02/18 Albuterol/Ipratropium [Duoneb 3 MG/3 Ml-0.5 MG/3 Ml 3 Ml] 1 ea IH QID #50 neb 01/04/18 Prednisone [Deltasone] 20 mg PO DAILY #5 tablet 01/08/18 levoFLOXacin [Levaquin] 500 mg PO DAILY #10 tab 01/08/18 Erythromycin 0.5% [Erythromycin] 1 applic BOTHEYES Q6 #1 tube 01/09/18 Nebulizer [Aeroeclipse II] 1 each MC Q4 PRN #1 each 01/09/18
--- NOTE | 2018-01-11 09:23 | RAD ---
Date of service: 01/10/2018 HISTORY: SOB COMPARISON: Portable chest 01/08/2018. FINDINGS: LUNGS: No active pulmonary disease. PLEURA: No significant pleural effusion identified, no pneumothorax apparent. CARDIOVASCULAR: No aortic atherosclerotic calcification present. Normal cardiac size. No pulmonary vascular congestion. OSSEOUS STRUCTURES: No significant abnormalities. VISUALIZED UPPER ABDOMEN: Left hemidiaphragm elevation reiterated. OTHER FINDINGS: None. IMPRESSION: No interval acute cardiopulmonary disease appreciable. Mild left hemidiaphragm elevation reiterated.
[2018-01-12 08:23] VITALS: TEMP 97.8; O2SAT 98
[2018-01-12] MEDS ORDERED: Enoxaparin 40 mg Syringe SC SCH (10:00)
--- NOTE | 2018-01-12 11:36 | CP.PCM.CON ---
History of Present Illness - History of Present Illness History of Present Illness: seen on rounds IV rx in progress comes in with exac copd Hx Hep C + Ab hx IVDU Review of Systems - Review of Systems All systems: reviewed and no additional remarkable complaints except - Constitutional Constitutional: absent: As Per HPI, Anorexia, Chills, Daytime Sleepiness, Excessive Sweating, Fatigue, Fever, Frequent Falls, Headache, Increased Appetite, Lethargy, Malaise, Night Sweats, Snoring, Sleep Apnea, Weight Gain, Weight Loss, Weakness, Other - EENT Eyes: absent: As Per HPI, Blind Spots, Blurred Vision, Change in Vision, Decreased Night Vision, Diplopia, Discharge, Dry Eye, Exophthalmos, Floaters, Irritation, Itchy Eyes, Loss of Peripheral Vision, Pain, Photophobia, Requires Corrective Lenses, Sees Flashes, Spots in Vision, Tunnel Vision, Other Visual Disturbances, Loss of Vision, Other Ears: absent: As Per HPI, Decreased Hearing, Ear Discharge, Ear Pain, Tinnitus, Abnormal Hearing, Disequilibrium, Dizziness, Other Nose/Mouth/Throat: absent: As Per HPI, Epistaxis, Nasal Congestion, Nasal Discharge, Nasal Obstruction, Nasal Trauma, Nose Pain, Post Nasal Drip, Sinus Pain, Sinus Pressure, Bleeding Gums, Change in Voice, Dental Pain, Dry Mouth, Dysphagia, Halitosis, Hoarsness, Lip Swelling, Mouth Lesions, Mouth Pain, Odynophagia, Sore Throat, Throat Swelling, Tongue Swelling, Facial Pain, Neck Pain, Neck Mass, Other - Breasts Breasts: absent: As Per HPI, Change in Shape, Mass, Pain, Nipple Discharge, Nipple Inversion, Skin Changes, Swelling, Other - Cardiovascular Cardiovascular: absent: As Per HPI, Acrocyanosis, Chest Pain, Chest Pain at Rest, Chest Pain with Activity, Claudication, Diaphoresis, Dyspnea, Dyspnea on Exertion, Edema, Irregular Heart Rhythm, Pain Radiating to Arm/Neck/Jaw, Leg Edema, Leg Ulcers, Lightheadedness, Orthopnea, Palpitations, Paroxysmal Nocturnal Dyspnea, Pedal Edema, Radiating Pain, Rapid Heart Rate, Slow Heart Rate, Syncope, Other - Respiratory Respiratory: As Per HPI - Gastrointestinal Gastrointestinal: absent: Abdominal Pain, Belching, Bloating, Change in Bowel Habits, Change in Stool Character, Coffee Ground Emesis, Constipation, Cramping, Diarrhea, Dyspepsia, Dysphagia, Early Satiety, Excessive Flatus, Fecal Incontinence, Heartburn, Hematemesis, Hematochezia, Loose Stools, Melena, Nausea, Odynophagia, Temesmus, Vomiting, Other - Genitourinary Genitourinary: absent: As Per HPI, Change in Urinary Stream, Difficulty Urinating, Dysuria, Flank Pain, Hematuria, Pyuria, Nocturia, Urinary Incontinence, Urinary Frequency, Urinary Hesitance, Urinary Urgency, Voiding Fr eq/Small Amts, Freq UTI, Hx Renal/Bladder Calculi, Hx /Renal Surgery, Bladder Distension, Other - Reproductive: Female Reproductive:Female: absent: As Per HPI, Amenorrhea, Amenorrhea/ Control, Currently Menstual, Cycle <21 Days, Cycle >35 Days, Cycle Variable, Menses 1-7 Days, Menses >/= 8 Days, Menses Variable, Cycle > 4 Weeks Between, No Menses for 6 Months, Heavy Menses, Light Menses, Normal Menses, Spotting Between Cycles, S/P Hysterectomy, Menopausal, Post Menopausal, Premenarche, Abnormal Vaginal Bleeding, Dysmenorrhea, Dyspareunia, Genital Lesions, Genital Pruritis, Pelvic Pain, Prolapse Symptoms, Sexual Dysfunction, Vaginal Discharge, Vaginal Dryness, Vaginal Odor, Vaginal Pruritis, Other - Menstruation Menstruation: absent: As Per HPI, Amenorrhea, Amenorrhea/ Control, Currently Menstual, Cycle <21 Days, Cycle >35 Days, Cycle Variable, Menses 1-7 Days, Menses >/= 8 Days, Menses Variable, Cycle > 4 Weeks Between, No Menses for 6 Months, Heavy Menses, Light Menses, Normal Menses, Spotting Between Cycles, S/P Hysterectomy, Menopausal, Post Menopausal, Premenarche, Abnormal Vaginal Bleeding, Dysmenorrhea, Other - Musculoskeletal Musculoskeletal: absent: As Per HPI, Abnormal Gait, Arthralgias, Atrophy, Back Pain, Deformity, Joint Swelling, Limited Range of Motion, Loss of Height, Muscle Cramps, Muscle Weakness, Myalgias, Neck Pain, Numbness, Radiating Pain into Limb, Stiffness, Tingling, Other - Integumentary Integumentary: absent: As Per HPI, Acne, Alopecia, Bleeding Lesions, Change in Hair, Change in Nails, Change in Pigmentation, Changing Lesions, Dry Skin, Erythema, Furuncle, Hirsutism, Lesions, New Lesions, Non-Healing Lesions, Photosensitivity, Pruritus, Rash, Skin Pain, Skin Ulcer, Sores, Striae, Swelling, Unusual Bruising, Wounds, Jaundice, Other - Neurological Neurological: absent: As Per HPI, Abnormal Gait, Abnormal Hearing, Abnormal Movements, Abnormal Speech, Behavioral Changes, Burning Sensations, Confusion, Convulsions, Disequilibrium, Dizziness, Numbness, Focal Weakness, Frequent Falls, Headaches, Lack of Coordination, Loss of Vision, Memory Loss, Paresthesias, Radicular Pain, Restless Legs, Sensory Deficit, Syncope, Tingling, Tremor, Vertigo, Weakness, Other Visual Disturbances, Other - Psychiatric Psychiatric: absent: As Per HPI, Abnormal Sleep Pattern, Anhedonia, Anxiety, Auditory Hallucinations, Behavioral Changes, Change in Appetite, Change in Libido, Confusion, Depression, Difficulty Concentrating, Hallucinations, Homicidal Ideation, Hopelessness, Irritability, Memory Loss, Mood Swings, Panic Attacks, Paranoia, Suicidal Ideation, Visual Hallucinations, Tactile Hallucinations, Other - Endocrine Endocrine: absent: As Per HPI, Change in Body Appearance, Change in Libido, Cold Intolorance, Deepening of Voice, Excessive Sweating, Fatigue, Flushing, Heat Intolorance, Increase in Ring/Shoe/Hat Size, Palpitations, Polydipsia, Polyphagia, Polyuria, Other - Hematologic/Lymphatic Hematologic: absent: As Per HPI, Easy Bleeding, Easy Bruising, Lymphadenopathy, Other Past Patient History - Infectious Disease Hx of Infectious Diseases: None - Past Medical History & Family History Past Medical History?: Yes - Past Social History Smoking Status: Light Smoker < 10 Cigarettes Daily - CARDIAC Hx Cardiac Disorders: No Hx Hypertension: No - PULMONARY Hx Respiratory Disorders: Yes Hx Asthma: Yes Hx Bronchitis: Yes Hx Chronic Obstructive Pulmonary Disease (COPD): Yes Hx Pneumonia: Yes - NEUROLOGICAL Hx Neurological Disorder: No Hx Seizures: No - HEENT Hx HEENT Problems: No - RENAL Hx Chronic Kidney Disease: Yes Hx Kidney Stones: Yes (RIGHT) - ENDOCRINE/METABOLIC Hx Endocrine Disorders: No - HEMATOLOGICAL/ONCOLOGICAL Hx Blood Disorders: No Hx Human Immunodeficiency Virus (HIV): No - INTEGUMENTARY Hx Dermatological Problems: No - MUSCULOSKELETAL/RHEUMATOLOGICAL Hx Musculoskeletal Disorders: No Hx Falls: No - GASTROINTESTINAL Hx Gastrointestinal Disorders: Yes Hx Gastritis: Yes - GENITOURINARY/GYNECOLOGICAL Hx Genitourinary Disorders: No Hx Sexually Transmitted Disorders: No - PSYCHIATRIC Hx Psychophysiologic Disorder: Yes Hx Anxiety: Yes Hx Substance Use: Yes (heroin) - SURGICAL HISTORY Hx Surgeries: Yes Other/Comment: Kidney stone removal - ANESTHESIA Hx Anesthesia: Yes Hx Anesthesia Reactions: No Hx Malignant Hyperthermia: No Meds Allergies/Adverse Reactions: Allergies Allergy/AdvReac Type Severity Reaction Status Date / Time No Known Allergies Allergy Verified 01/08/18 04:02 - Medications Medications: Current Medications Acetaminophen (Tylenol 325mg Tab) 650 mg PO Q8 PRN PRN Reason: Pain, moderate (4-7) Last Admin: 01/11/18 21:31 Dose: 650 mg Albuterol/Ipratropium (Duoneb 3 Mg/0.5 Mg (3 Ml) Ud) 3 ml INH RQ6 HARPREET Azithromycin (Zithromax) 500 mg PO DAILY [facility]; Protocol Enoxaparin Sodium (Lovenox) 40 mg SC DAILY [facility] Last Admin: 01/12/18 10:28 Dose: Not Given Gabapentin (Neurontin) 400 mg PO TID [facility] Last Admin: 01/12/18 09:55 Dose: 400 mg Lorazepam (Ativan) 1 mg PO Q6 PRN PRN Reason: Agitation Last Admin: 01/12/18 09:58 Dose: 1 mg Methylprednisolone (Solu-Medrol) 40 mg IVP Q12H [facility] Last Admin: 01/11/18 23:41 Dose: 40 mg Mirtazapine (Remeron) 30 mg PO HS [facility] Last Admin: 01/11/18 21:31 Dose: 30 mg Quetiapine Fumarate (Seroquel) 100 mg PO HS [facility] Last Admin: 01/11/18 21:31 Dose: 100 mg Zolpidem Tartrate (Ambien) 5 mg PO HS PRN PRN Reason: Insomnia Last Admin: 01/11/18 02:03 Dose: 5 mg Physical Exam - Constitutional Appears: Non-toxic, Chronically Ill - Head Exam Head Exam: ATRAUMATIC, NORMAL INSPECTION, NORMOCEPHALIC - Eye Exam Eye Exam: EOMI, Normal appearance, PERRL Pupil Exam: NORMAL ACCOMODATION, PERRL - ENT Exam ENT Exam: Mucous Membranes Moist, Normal Exam - Neck Exam Neck exam: Positive for: Normal Inspection - Respiratory Exam Respiratory Exam: Clear to Auscultation Bilateral, NORMAL BREATHING PATTERN - Cardiovascular Exam Cardiovascular Exam: REGULAR RHYTHM - GI/Abdominal Exam GI & Abdominal Exam: Normal Bowel Sounds, Soft. absent: Tenderness - Rectal Exam Rectal Exam: NORMAL INSPECTION - Extremities Exam Extremities exam: Positive for: normal inspection - Back Exam Back exam: NORMAL INSPECTION - Neurological Exam Neurological exam: Alert, CN II-XII Intact, Normal Gait, Oriented x3, Reflexes Normal - Psychiatric Exam Psychiatric exam: Normal Affect, Normal Mood - Skin Skin Exam: Dry, Intact, Normal Color, Warm Results - Vital Signs Recent Vital Signs: Last Vital Signs Temp 97.8 F 01/12/18 07:22 Pulse 76 01/12/18 07:22 Resp 20 01/12/18 07:22 BP 132/75 01/12/18 07:22 Pulse Ox 98 01/12/18 07:22 - Labs Result Diagrams: 01/10/18 21:50 01/10/18 21:50 Assessment & Plan (1) Hepatitis C antibody positive in blood Status: Acute (2) COPD exacerbation Status: Acute Priority: High (3) Depression, major, severe recurrence Status: Acute (4) Drug abuse Status: Acute Priority: High
[2018-01-12] MEDS: MethylPREDNISolone 40 mg Vial IVP SCH (11:44)
[2018-01-12 12:16] LABS: BASO % 0.2 % (0.0-2.0); HEMOGLOBIN 9.6 g/dL (11.0-16.0); LYMPH # 1.9 K/uL (1.0-4.3); LYMPH % 17.4 % (20.0-40.0); MEAN CELL VOLUME 92.4 fL (81.0-99.0); MEAN CORPUSCULAR HEMOGLOBIN 30.5 pg (27.0-31.0); MEAN PLATELET VOLUME 7.8 fL (7.2-11.7); MONO % 9.2 % (0.0-10.0); NEUT % 73.2 % (50.0-75.0); RBC 3.15 Mil/uL (3.80-5.20); RED CELL DISTRIBUTION WIDTH 14.4 % (11.5-14.5)
[2018-01-12 12:40] LABS: ALB/GLOB RATIO 1.1 (1.0-2.1); ALBUMIN 2.9 g/dL (3.5-5.0); ALT/SGPT 32 U/L (9-52); AST/SGOT 19 U/L (14-36); BLOOD UREA NITROGEN 15 mg/dL (7-17); CALCIUM 8.1 mg/dl (8.6-10.4); GFR NON-AFRICAN AMERICAN > 60
--- NOTE | 2018-01-12 13:12 | CP.PCM.PN ---
Subjective - Date & Time of Evaluation Date of Evaluation: 01/12/18 Time of Evaluation: 13:00 - Subjective Subjective: Progress note. Attending: Dr. Mejia Pt seen and examined at bedside. No pain medications. No fevers, but some chill s. Going through heroin withdrawal. Psych workup in progress. Objective - Vital Signs/Intake and Output Vital Signs (last 24 hours): Temp Pulse Resp BP Pulse Ox 97.8 F 76 20 132/75 98 01/12/18 07:22 01/12/18 07:22 01/12/18 07:22 01/12/18 07:22 01/12/18 07:22 - Medications Medications: Current Medications Acetaminophen (Tylenol 325mg Tab) 650 mg PO Q8 PRN PRN Reason: Pain, moderate (4-7) Last Admin: 01/11/18 21:31 Dose: 650 mg Albuterol/Ipratropium (Duoneb 3 Mg/0.5 Mg (3 Ml) Ud) 3 ml INH RQ6 HARPREET Azithromycin (Zithromax) 500 mg PO DAILY [facility]; Protocol Enoxaparin Sodium (Lovenox) 40 mg SC DAILY [facility] Last Admin: 01/12/18 10:28 Dose: Not Given Gabapentin (Neurontin) 400 mg PO TID [facility] Last Admin: 01/12/18 13:03 Dose: 400 mg Lorazepam (Ativan) 1 mg PO Q6 PRN PRN Reason: Agitation Last Admin: 01/12/18 09:58 Dose: 1 mg Methylprednisolone (Solu-Medrol) 40 mg IVP Q12H [facility] Last Admin: 01/12/18 11:44 Dose: 40 mg Mirtazapine (Remeron) 30 mg PO HS [facility] Last Admin: 01/11/18 21:31 Dose: 30 mg Quetiapine Fumarate (Seroquel) 100 mg PO HS [facility] Last Admin: 01/11/18 21:31 Dose: 100 mg Zolpidem Tartrate (Ambien) 5 mg PO HS PRN PRN Reason: Insomnia Last Admin: 01/11/18 02:03 Dose: 5 mg - Labs Labs: 01/12/18 11:58 01/12/18 11:58 - Constitutional Appears: Unkempt, Chronically Ill - Head Exam Head Exam: ATRAUMATIC, NORMAL INSPECTION, NORMOCEPHALIC - Eye Exam Eye Exam: EOMI - ENT Exam ENT Exam: Mucous Membranes Moist - Neck Exam Neck Exam: Full ROM, Normal Inspection - Respiratory Exam Respiratory Exam: NORMAL BREATHING PATTERN. absent: Respiratory Distress - GI/Abdominal Exam GI & Abdominal Exam: Soft, Normal Bowel Sounds. absent: Tenderness - Extremities Exam Extremities Exam: Full ROM. absent: Normal Inspection Additional comments: multiple tattoos - Back Exam Back Exam: NORMAL INSPECTION - Neurological Exam Neurological Exam: Alert, Awake, Oriented x3 - Psychiatric Exam Psychiatric exam: Depressed - Skin Skin Exam: Dry, Intact, Normal Color, Warm Assessment and Plan - Assessment and Plan (Free Text) Assessment: This is a 52 yo female with 1. COPD exacerbation -solumedrol IV -azithromycin 500 PO daily -duonebs RQ6 -oxygen as needed 2. R/O CAP -pt has no fever or leukocytosis -ID consult. recs appreciated. Dr. Sorenson -azithromycin 500 mg po daily -viral culture -blood cultures -sputum cultures -procalcitonin -CRP -CXR shows no active disease 3. hx of hepatitis -reactive hepatitis C antibody -ID consult. Dr. Sorenson recs appreciated. 4. Heroin withdrawal -under supervision of Dr. Cowan -getting methadone -psych consult. Dr. Cowan is seeing today. recs appreciated. 5. GI/DVT ppx DVT: SCDs GI: protonix discussed with Dr. Mejia.
[2018-01-12] MEDS ORDERED: Potassium Chloride 20 mEq ER Tab PO ONE (13:15)
[2018-01-12] MEDS ORDERED: Albuterol-Ipratrop 3 mg / 0.5 (3 ml) UD INH SCH (14:00)
[2018-01-12 16:37] VITALS: BP 173/94
[2018-01-12 18:52] LABS: LEGIONELLA AG URINE NEGATIVE (NEGATIVE)
[2018-01-12 18:55] VITALS: PULSE 88
[2018-01-13] MEDS ORDERED: Pantoprazole 40 mg EC Tab PO SCH (10:00)
--- NOTE | 2018-01-13 10:01 | HP ---
HISTORY OF PRESENT: The patient is a 52-year-old female chief complaints shortness of breath, weakness, fatigue, tiredness. . PHYSICAL EXAMINATION: GENERAL: The patient is awake, alert, and oriented. VITAL SIGNS: Temperature 98, pulse 90. HEENT: Within normal limits. NECK: Supple. EXTREMITIES: No edema. The patient suffers from COPD, bronchitis, . Patient get bed rest, supportive care, bronchodilator. Bryan Mejia MD
[2018-01-13 13:49] LABS: N MENINGITIS ACY/W135 NEGATIVE (NEGATIVE); N MENINGITIS B/ECOLI K1 NEGATIVE (NEGATIVE); STREP PNEUMONIAE NEGATIVE (NEGATIVE); STREPTOCOCCUS B NEGATIVE (NEGATIVE)
--- NOTE | 2018-01-13 15:44 | CARD ---
APPROVED REPORT Date of service: 01/11/2018 EKG Measurement Heart [id number] <Conclusion> Normal sinus rhythm Normal ECG
--- NOTE | 2018-01-13 15:46 | CARD ---
APPROVED REPORT Date of service: 01/10/2018 EKG Measurement Heart [id number] <Conclusion> Normal sinus rhythm Poor R wave progression may be normal variant Normal Electrocardiogram
== END 2018-01-12 18:30 | disposition left against medical advice (07) | DRG 140 ==
LOC: C.ER 20:53 → C.5S 22:35
PROVIDERS: ADMIT Internal Medicine Pulmonary Disease; ATTEND Internal Medicine Pulmonary Disease
DX: J44.0 Chronic obstructive pulmonary disease with (acute) lower respiratory infection (principal); J18.9 Pneumonia, unspecified organism; F33.2 Major depressive disorder, recurrent severe without psychotic features; F11.23 Opioid dependence with withdrawal; N18.9 Chronic kidney disease, unspecified; B18.2 Chronic viral hepatitis C; J44.1 Chronic obstructive pulmonary disease with (acute) exacerbation; F17.210 Nicotine dependence, cigarettes, uncomplicated; Z87.01 Personal history of pneumonia (recurrent); Z87.442 Personal history of urinary calculi

== ENCOUNTER 2018-01-17 12:57 | Emergency (ER) | payer OTHER ==
[2018-01-17 12:57] VITALS: BMI 22.8
[2018-01-17 13:10] VITALS: RESP 18; TEMP 98
[2018-01-17] MEDS: Albuterol-Ipratrop 3 mg / 0.5 (3 ml) UD IH SCH ×3 (13:40→14:08)
--- NOTE | 2018-01-17 13:42 | C.PDOC ---
History Of Present Illness 52 y/o female pt with hx of asthma brought to the ER by EMS due to SOB, cough with white sputum and chest tightness since last night. Pt reports she used her inhaler and recently finished her steroids medication. Pt was seen in the ER yesterday. EMS provided breathing treatment en route. Pt denies fever, chills and no previous intubation. Time Seen by Provider: 01/17/18 13:08 Chief Complaint (Nursing): Shortness Of Breath History Per: Patient History/Exam Limitations: no limitations Onset/Duration Of Symptoms: Hrs Current Symptoms Are (Timing): Still Present Initiating Event: Upper Respiratory Illness Quality: Tightness Past Medical History Reviewed: Historical Data, Nursing Documentation, Vital Signs Vital Signs: Last Vital Signs Temp 98 F 01/17/18 13:07 Pulse 85 01/17/18 13:07 Resp 18 01/17/18 13:14 BP 146/71 01/17/18 13:07 Pulse Ox 98 01/17/18 13:14 - Medical History PMH: Anxiety, Asthma, Back Problems, Bronchitis, COPD, Gastritis, Kidney Stones (RIGHT), Pneumonia, Chronic Kidney Disease - [facility] Procedures (01/05/18) CLOSURE SKIN & SUBCUTANEOUS NEC (04/25/13) DETOXIFICATION SERVICES FOR SUBSTANCE ABUSE TREATMENT (12/24/17) INDIV PSYCHOTHERAPY FOR SUBSTANCE ABUSE TREATMENT, SUPPORT (05/23/16) INJECT/INFUSE NEC (06/22/14) INTRODUCE OF OTH THERAP SUBST INTO RESP TRACT, VIA OPENING (12/16/17) INTRODUCTION OF ANTI-INFLAM INTO RESP TRACT, VIA OPENING (03/16/15) INTRODUCTION OF SERUM/TOX/VACCINE INTO MUSCLE, PERC APPROACH (03/16/15) MEDICATION MANAGEMENT (12/24/17) MEDS MGMT FOR SUBSTANCE ABUSE TREATMENT, METHADONE MAINT (12/24/17) NEBULIZER THERAPY (06/22/14) TETANUS TOXOID ADMINIST (04/25/13) Family History: States: Unknown Family Hx - Social History Hx Tobacco Use: Yes (3-4 cigarettes a day) Hx Alcohol Use: Yes Hx Substance Use: Yes (heroin) - Immunization History Hx Tetanus Toxoid Vaccination: Yes Hx Influenza Vaccination: Yes Hx Pneumococcal Vaccination: Yes Review Of Systems Except As Marked, All Systems Reviewed And Found Negative. Constitutional: Negative for: Fever, Chills, Other (previous intubation ) Cardiovascular: Positive for: Chest Pain (tightness) Respiratory: Positive for: Cough (with white sputum), Shortness of Breath Physical Exam - Physical Exam Appears: Non-toxic, No Acute Distress (comfortable), Other (cont. breathing treatment ) Skin: Warm, Dry, No Rash Head: Atraumatic, Normacephalic Eye(s): bilateral: Normal Inspection, EOMI Chest: Symmetrical, No Deformity Cardiovascular: Rhythm Regular, Other (normal S1, S2 ) Respiratory: Rhonchi (diffused), Wheezing (expiratory and inspiratory ), Other (speaking in full sentences) Gastrointestinal/Abdominal: Soft, No Tenderness Extremity: Normal ROM (x4) ED Course And Treatment ECG: Interpreted By Me, Viewed By Me ECG Rhythm: Sinus Bradycardia, Nonspecific Changes ECG Interpretation: Normal, No Acute Changes Rate From EC O2 Sat by Pulse Oximetry: 98 (RA) Pulse Ox Interpretation: Normal - Other Rad Chest X-Ray: Read By Radiologist Interpretation: Accession No. : [id number]. Patient Name / ID : NAVI MEDEIROS / [id number]. Exam Date : 01/17/2018 13:27:33 ( Approved ). Study Comment : Sex / Age : F / 52Y. Creator : Kris Gallagher MD. Dictator : Kris Gallagher MD. Manager Environmental Affairs : Heel Packer : Kris Gallagher MD. Approver2 : Report Date : 01/17/2018 13:52:19. My Comment : . Date of service: 01/17/2018. HISTORY: cough. COMPARISON: Comparison chest 01/10/2018. FINDINGS: LUNGS: Bibasilar atelectasis; developing lower lobe infiltrates could be excluded with followup radiographs. PLEURA: No significant pleural effusion identified, no pneumothorax apparent. CARDIOVASCULAR: Minor aortic atherosclerotic calcification present. Borderline/mild cardiomegaly . No pulmonary vascular congestion. OSSEOUS STRUCTURES: Mild levoscoliosis centered in mid lumbar region. VISUALIZED UPPER ABDOMEN: Normal. OTHER FINDINGS: None. IMPRESSION: Bibasilar atelectasis. Bilateral lower lobe infiltrates could be excluded with followup radiographs. Medical Decision Making Medical Decision Making: Plans: -- CXR -- albuterol -- prednisone -- nebulizer treatment -- peak flow 14:44 On reassessment: peak flow 150, later 250. Pt is resting comfortably; sx was resolved. Pt request for refill of albuterol medication bibasal lung atelectasis and pneumonia can be r/o. no fever. Disposition Counseled Patient/Family Regarding: Studies Performed, Diagnosis, Need For Followup, Smoking Cessation - Disposition Disposition: HOME/ ROUTINE Disposition Time: 14:49 Prescriptions: Albuterol Sulfate [Proair Respiclick] 90 mcg IH Q4 PRN #1 aer.pow.ba PRN Reason: Wheezing predniSONE [Prednisone] 40 mg PO DAILY #10 tab Instructions: Smoking: Not Just Harmful to Your Lungs and Heart, Asthma, Adult (DC) Forms: [facility] (Malaysian), General Discharge Instructions - POA Present On Arrival: None - Clinical Impression Clinical Impression: Exacerbation of asthma, Tobacco use - Scribe Statement The provider has reviewed the documentation as recorded by the Scribe Justice Provider Attestation: All medical record entries made by the Scribe were at my direction and personally dictated by me. I have reviewed the chart and agree that the record accurately reflects my personal performance of the history, physical exam, medical decision making, and the department course for this patient. I have also personally directed, reviewed, and agree with the discharge instructions and disposition.
[2018-01-17] MEDS ORDERED: Albuterol-Ipratrop 3 mg / 0.5 (3 ml) UD ONE (13:54)
--- NOTE | 2018-01-17 13:55 | RAD ---
Date of service: 01/17/2018 HISTORY: cough COMPARISON: Comparison chest 01/10/2018 FINDINGS: LUNGS: Bibasilar atelectasis; developing lower lobe infiltrates could be excluded with followup radiographs. PLEURA: No significant pleural effusion identified, no pneumothorax apparent. CARDIOVASCULAR: Minor aortic atherosclerotic calcification present. Borderline/mild cardiomegaly . No pulmonary vascular congestion. OSSEOUS STRUCTURES: Mild levoscoliosis centered in mid lumbar region VISUALIZED UPPER ABDOMEN: Normal. OTHER FINDINGS: None. IMPRESSION: Bibasilar atelectasis. Bilateral lower lobe infiltrates could be excluded with followup radiographs.
[2018-01-17 14:47] VITALS: O2SAT 98
[2018-01-17 15:21] VITALS: BP 119/76; PULSE 78
== END 2018-01-17 15:21 | disposition home or self-care (01) ==
LOC: C.ER 12:57
DX: J45.901 Unspecified asthma with (acute) exacerbation (principal); Z72.0 Tobacco use

== ENCOUNTER 2018-02-15 04:06 | Emergency (ER) | payer OTHER ==
[2018-02-15 04:07] VITALS: BMI 25.0
[2018-02-15 04:13] VITALS: O2SAT 96
[2018-02-15] MEDS ORDERED: Albuterol-Ipratrop 3 mg / 0.5 (3 ml) UD ONE (04:15)
--- NOTE | 2018-02-15 04:26 | C.PDOC ---
History Of Present Illness 52 year old female with PMHx asthma presents to the ED for evaluation of asthma exacerbation. Patient has multiple prior evaluations for same, patient was recently seen at [place] [facility] yesterday. Patient denies fever, chills, headache, CP, palpitations, dizziness, weakness, numbness, rash, sick contacts. Time Seen by Provider: 02/15/18 04:21 Chief Complaint (Nursing): Shortness Of Breath History Per: Patient History/Exam Limitations: no limitations Onset/Duration Of Symptoms: Hrs Current Symptoms Are (Timing): Still Present Associated Symptoms: Cough Recent travel outside of the [place]: No Additional History Per: Patient Past Medical History Reviewed: Historical Data, Nursing Documentation, Vital Signs Vital Signs: Last Vital Signs Temp 97.9 F 02/15/18 04:15 Pulse 98 H 02/15/18 04:12 Resp 22 02/15/18 04:12 BP 142/93 H 02/15/18 04:12 Pulse Ox 96 02/15/18 04:12 - Medical History PMH: Anxiety, Asthma, Back Problems, Bronchitis, COPD, Depression, Kidney Stones (RIGHT), Pneumonia, Chronic Kidney Disease Denies: Gastritis (Patient denies gatritis), HIV, HTN, Seizures, Sexually Transmitted Disease Surgical History: No Surg Hx - [facility] Procedures (01/05/18) CLOSURE SKIN & SUBCUTANEOUS NEC (04/25/13) DETOXIFICATION SERVICES FOR SUBSTANCE ABUSE TREATMENT (12/24/17) INDIV PSYCHOTHERAPY FOR SUBSTANCE ABUSE TREATMENT, SUPPORT (05/23/16) INJECT/INFUSE NEC (06/22/14) INTRODUCE OF OTH THERAP SUBST INTO RESP TRACT, VIA OPENING (12/16/17) INTRODUCTION OF ANTI-INFLAM INTO RESP TRACT, VIA OPENING (03/16/15) INTRODUCTION OF SERUM/TOX/VACCINE INTO MUSCLE, PERC APPROACH (03/16/15) MEDICATION MANAGEMENT (12/24/17) MEDS MGMT FOR SUBSTANCE ABUSE TREATMENT, METHADONE MAINT (12/24/17) NEBULIZER THERAPY (06/22/14) TETANUS TOXOID ADMINIST (04/25/13) Family History: States: Unknown Family Hx - Social History Hx Tobacco Use: Yes (3-4 cigarettes a day) Hx Alcohol Use: No (Patient denies alcohol consumption) Hx Substance Use: Yes (heroin/opiods) - Immunization History Hx Tetanus Toxoid Vaccination: Yes Hx Influenza Vaccination: Yes Hx Pneumococcal Vaccination: Yes Review Of Systems Constitutional: Negative for: Fever, Chills ENT: Negative for: Nose Discharge, Nose Congestion Cardiovascular: Negative for: Chest Pain Respiratory: Positive for: Cough, Shortness of Breath, Wheezing. Negative for: Sputum Gastrointestinal: Negative for: Nausea, Vomiting, Abdominal Pain Skin: Negative for: Rash Neurological: Negative for: Weakness, Numbness, Headache, Dizziness Physical Exam - Physical Exam Appears: Non-toxic, No Acute Distress Skin: Normal Color, Warm, Dry Head: Atraumatic, Normacephalic Eye(s): bilateral: Normal Inspection Oral Mucosa: Moist Neck: Normal ROM, Supple Chest: Symmetrical Cardiovascular: Rhythm Regular Respiratory: No Rales, No Rhonchi, Wheezing Gastrointestinal/Abdominal: Soft, No Tenderness, No Guarding, No Rebound Extremity: Normal ROM, No Tenderness, No Swelling Neurological/Psych: Oriented x3, Normal Speech, Normal Cognition Gait: Steady ED Course And Treatment O2 Sat by Pulse Oximetry: 96 (ON RA) Pulse Ox Interpretation: Normal Disposition Counseled Patient/Family Regarding: Diagnosis, Need For Followup - Disposition Disposition: HOME/ ROUTINE Disposition Time: 05:30 Condition: IMPROVED Instructions: Asthma, Adult (DC) Forms: [facility] (Uzbek) - Clinical Impression Clinical Impression: Exacerbation of asthma - Scribe Statement The provider has reviewed the documentation as recorded by the Scribe Tarik Ball All medical record entries made by the Scribe were at my direction and personally dictated by me. I have reviewed the chart and agree that the record accurately reflects my personal performance of the history, physical exam, medical decision making, and the department course for this patient. I have also personally directed, reviewed, and agree with the discharge instructions and disposition.
[2018-02-15 06:35] VITALS: RESP 26
[2018-02-15 06:36] VITALS: BP 132/82; PULSE 92; TEMP 98
== END 2018-02-15 06:35 | disposition home or self-care (01) ==
LOC: C.ER 04:06
DX: J45.901 Unspecified asthma with (acute) exacerbation (principal); J44.9 Chronic obstructive pulmonary disease, unspecified; N18.9 Chronic kidney disease, unspecified; F17.210 Nicotine dependence, cigarettes, uncomplicated

== ENCOUNTER 2018-02-15 22:53 | Inpatient (IN) | payer OTHER ==
[2018-02-15 22:53] VITALS: BMI 21.9
[2018-02-15] MEDS ORDERED: Albuterol-Ipratrop 3 mg / 0.5 (3 ml) UD INH STA (23:14)
--- NOTE | 2018-02-15 23:46 | C.PDOC ---
History Of Present Illness 52 year old female, whose past medical history includes asthma and COPD, presents to the ED for evaluation of shortness of breath. Patient has history of multiple visits to the emergency department; she was evaluated three times today within [facility] ED. Patient admits she relapsed three months ago and snorted heroin after being clean for some time. Patient admits to smoking cigarettes and states she cannot stop. She is afraid that she will in the street, and is willing to accept detox if available. Patient denies fever, chills, headache, nausea, vomiting. Time Seen by Provider: 02/15/18 22:59 Chief Complaint (Nursing): Shortness Of Breath History Per: Patient History/Exam Limitations: no limitations Onset/Duration Of Symptoms: Hrs Current Symptoms Are (Timing): Still Present Current Respiratory Medications: See Home Med List Associated Symptoms: denies: Fever, Chills Additional History Per: Patient Past Medical History Reviewed: Historical Data, Nursing Documentation, Vital Signs Vital Signs: Last Vital Signs Temp 97.6 F 02/15/18 22:56 Pulse 103 H 02/15/18 22:56 Resp 22 02/15/18 22:57 BP 158/88 H 02/15/18 22:56 Pulse Ox 96 02/15/18 22:57 - Medical History PMH: Anxiety, Asthma, Back Problems, Bronchitis, COPD, Depression, Kidney Stones (RIGHT), Pneumonia, Chronic Kidney Disease Denies: Gastritis (Patient denies gatritis), HIV, HTN, Seizures, Sexually Transmitted Disease Surgical History: No Surg Hx - [facility] (01/05/18) CLOSURE SKIN & SUBCUTANEOUS NEC (04/25/13) DETOXIFICATION SERVICES FOR SUBSTANCE ABUSE TREATMENT (12/24/17) INDIV PSYCHOTHERAPY FOR SUBSTANCE ABUSE TREATMENT, SUPPORT (05/23/16) INJECT/INFUSE NEC (06/22/14) INTRODUCE OF OTH THERAP SUBST INTO RESP TRACT, VIA OPENING (12/16/17) INTRODUCTION OF ANTI-INFLAM INTO RESP TRACT, VIA OPENING (03/16/15) INTRODUCTION OF SERUM/TOX/VACCINE INTO MUSCLE, PERC APPROACH (03/16/15) MEDICATION MANAGEMENT (12/24/17) MEDS MGMT FOR SUBSTANCE ABUSE TREATMENT, METHADONE MAINT (12/24/17) NEBULIZER THERAPY (06/22/14) TETANUS TOXOID ADMINIST (02/16/14) Family History: States: Unknown Family Hx - Social History Hx Tobacco Use: Yes (3-4 cigarettes a day) Hx Alcohol Use: No (Patient denies alcohol consumption) Hx Substance Use: Yes (heroin/opiods) - Immunization History Hx Tetanus Toxoid Vaccination: Yes Hx Influenza Vaccination: Yes Hx Pneumococcal Vaccination: Yes Review Of Systems Constitutional: Negative for: Fever, Chills Respiratory: Positive for: Shortness of Breath Gastrointestinal: Negative for: Nausea, Vomiting Neurological: Negative for: Headache Physical Exam - Physical Exam Appears: Non-toxic, Other (assuming tripod position, appears to be agitated and under the influence of a substance ) Skin: Normal Color, Warm, Dry Head: Atraumatic, Normacephalic Eye(s): bilateral: Normal Inspection Oral Mucosa: Moist Neck: Supple Chest: Symmetrical, No Deformity, No Tenderness Cardiovascular: Rhythm Regular, No Murmur Respiratory: No Rales, No Rhonchi, Wheezing Gastrointestinal/Abdominal: Soft, No Tenderness, No Guarding, No Rebound Extremity: Normal ROM Neurological/Psych: Normal Speech, Normal Cognition ED Course And Treatment O2 Sat by Pulse Oximetry: 96 Pulse Ox Interpretation: Normal Medical Decision Making Medical Decision Making: Impression: 52 year old female with shortness of breath Plan: * bloodwork * urinalysis * CXR * EKG * Flu swab * Duoneb INH * reassess and disposition Progress: Bloodwork, urinalysis, CXR, EKG, and flu swab ordered and reviewed. Duoneb INH given. Calls placed to Dr. Meek's service at 23:21 and 23:44. Pending callback. Disposition Counseled Patient/Family Regarding: Studies Performed - Disposition Disposition: HOME/ ROUTINE Disposition Time: 00:01 Condition: STABLE Forms: [facility] (Sammarinese), General Discharge Instructions - POA Present On Arrival: None - Clinical Impression Clinical Impression: COPD exacerbation, Opioid abuse - Scribe Statement The provider has reviewed the documentation as recorded by the Scribe (Oly Kunz) Provider Attestation: All medical record entries made by the Scribe were at my direction and personally dictated by me. I have reviewed the chart and agree that the record accurately reflects my personal performance of the history, physical exam, medical decision making, and the department course for this patient. I have also personally directed, reviewed, and agree with the discharge instructions and disposition. Physician Patient Turnover Patient Signed Over To: Jody Jacobs Handoff Comments: pending lab results, discussion with Dr. Meek for possible admission for COPD exacerbation, and possible detox
[2018-02-16 00:17] LABS: BASO % 0.2 % (0.0-2.0); HEMOGLOBIN 10.8 g/dL (11.0-16.0); LYMPH # 0.6 K/uL (1.0-4.3); LYMPH % 6.2 % (20.0-40.0); MEAN CELL VOLUME 90.4 fL (81.0-99.0); MEAN CORPUSCULAR HEMOGLOBIN 29.3 pg (27.0-31.0); MEAN CORPUSCULAR HGB CONC 32.4 g/dL (33.0-37.0); MEAN PLATELET VOLUME 7.7 fL (7.2-11.7); MONO # 0.4 K/uL (0.0-0.8); MONO % 3.9 % (0.0-10.0); NEUT # 8.9 K/uL (1.8-7.0); NEUT % 89.7 % (50.0-75.0); PLATELET COUNT 300 K/uL (130-400); RBC 3.69 Mil/uL (3.80-5.20); RED CELL DISTRIBUTION WIDTH 14.4 % (11.5-14.5); WHITE BLOOD COUNT 9.9 K/uL (4.8-10.8)
[2018-02-16 00:22] LABS: SQUAMOUS EPITHIAL 4 /hpf (0-5); URINE AMORPHOUS SEDIMENT OCC /ul (<OCC); URINE BILIRUBIN NEGATIVE (NEGATIVE); URINE BLOOD NEGATIVE (NEGATIVE); URINE CLARITY Hazy (Clear); URINE COLOR Yellow (YELLOW); URINE GLUCOSE (UA) NORMAL (Normal); URINE LEUKOCYTE ESTERASE NEG Leu/uL (Negative); URINE PROTEIN NEGATIVE (NEGATIVE); URINE UROBILINOGEN NORMAL mg/dL (0.2-1.0)
[2018-02-16 00:36] LABS: ALB/GLOB RATIO 1.4 (1.0-2.1); ALBUMIN 3.7 g/dL (3.5-5.0); ALT/SGPT 36 U/L (9-52); AST/SGOT 39 U/L (14-36); BLOOD UREA NITROGEN 15 mg/dL (7-17); CALCIUM 8.5 mg/dl (8.6-10.4); GFR NON-AFRICAN AMERICAN > 60
[2018-02-16 00:47] LABS: B-TYPE NATRIURETIC PEPTIDE 514 pg/mL (0-900)
[2018-02-16 01:03] LABS: LYMPHOCYTE 11 % (20-40); MONOCYTE 3 % (0-10); NEUTROPHIL 86 % (50-75); TOTAL CELLS COUNTED 100
[2018-02-16 01:04] LABS: PLATELET ESTIMATE NORMAL (NORMAL)
[2018-02-16 01:14] LABS: BARBITURATES, UR NEGATIVE (NEGATIVE); BENZODIAZEPINES, UR NEGATIVE (NEGATIVE); PHENCYCLIDINE, UR NEGATIVE (NEGATIVE)
[2018-02-16 01:23] LABS: OPIATES, UR POSITIVE (NEGATIVE)
[2018-02-16] MEDS: Albuterol-Ipratrop 3 mg / 0.5 (3 ml) UD INH SCH ×5 (06:02→23:48)
--- NOTE | 2018-02-16 08:19 | RAD ---
Date of service: 02/16/2018 HISTORY: SOB COMPARISON: Frontal chest radiograph 01/17/2018. FINDINGS: LUNGS: Limited patchy airspace disease question in the right base with none otherwise evident bilaterally. PLEURA: No significant pleural effusion identified, no pneumothorax apparent. CARDIOVASCULAR: No aortic atherosclerotic calcification present. Normal cardiac size. No pulmonary vascular congestion. OSSEOUS STRUCTURES: No significant abnormalities. VISUALIZED UPPER ABDOMEN: Stable left hemidiaphragm elevation. OTHER FINDINGS: None. IMPRESSION: Limited patchy airspace disease right base with remaining lung perez clear. Left hemidiaphragm elevation is stable.
[2018-02-16] MEDS ORDERED: Sodium Chloride 0.9% 1,000 ML IV SCH (08:30)
--- NOTE | 2018-02-16 08:57 | CP.PCM.PN ---
Subjective - Date & Time of Evaluation Date of Evaluation: 02/16/18 Time of Evaluation: 08:56 - Subjective Subjective: PGY3 Resident - Medicine Progress Note 52 year old female, whose past medical history includes asthma and COPD, presents to the ED for evaluation of shortness of breath. Patient has history of multiple visits to the emergency department; she was evaluated three times today within [facility] ED. Patient admits she relapsed three months ago and snorted heroin after being clean for some time. Patient admits to smoking cigarettes and states she cannot stop. She is afraid that she will in the street, and is willing to accept detox if available. Patient denies fever, chills, headache, nausea, vomiting. Patient seen and examined at bedside. No overnight events. Patient is c/o wheezing and difficulty breathing. She reports a hx of COPD. She states she used cocain 5d ago and feel she needs something to take the edge off. She states she feels "sick" but could not elaborate in what way. She denies f/c, headache, chest pain, cough, abdominal pain, n/v, d/c, or any additional acute complaints. Objective - Vital Signs/Intake and Output Vital Signs (last 24 hours): Temp Pulse Resp BP Pulse Ox 98.0 F 66 20 187/88 H 95 02/16/18 07:00 02/16/18 07:00 02/16/18 07:00 02/16/18 07:00 02/16/18 07:00 - Medications Medications: Current Medications Albuterol/Ipratropium (Duoneb 3 Mg/0.5 Mg (3 Ml) Ud) 3 ml INH RQ3 [facility] Stop: 02/16/18 15:01 Last Admin: 02/16/18 08:35 Dose: 3 ml Enoxaparin Sodium (Lovenox) 30 mg SC DAILY [facility] Sodium Chloride (Sodium Chloride 0.9%) 1,000 mls @ 80 mls/hr IV .[id number] [facility] - Labs Labs: 02/16/18 00:12 02/16/18 00:12 - Additional Findings Additional findings: - Constitutional Appears: Non-toxic, No Acute Distress - Head Exam Head Exam: ATRAUMATIC, NORMAL INSPECTION - Eye Exam Eye Exam: EOMI, Normal appearance - Respiratory Exam Respiratory Exam: +Rhonchi, +Wheezes. Absent: Rales -no accessory muscle use. - Cardiovascular Exam Cardiovascular Exam: Regular Rate, +S1, +S2 - GI/Abdominal Exam GI & Abdominal Exam: Soft, Normal Bowel Sounds. absent: Tenderness - Extremities Exam Extremities Exam: Full ROM, Normal Inspection. absent: Pedal Edema, Tenderness - Back Exam Back Exam: NORMAL INSPECTION. absent: CVA tenderness (L), CVA tenderness (R) - Neurological Exam Neurological Exam: Alert, Awake, Oriented x3 - Psychiatric Exam Psychiatric exam: Normal Affect, Normal Mood - Skin Skin Exam: Dry, Intact, Normal Color, Warm Assessment and Plan - Assessment and Plan (Free Text) Assessment: COPD exacerbation 02/16: O2 sat on RA is 94%; patient placed on non-rebreather due to inc sensation of SOB, O2 Sat inc to 99% Duoneb 3 Mg/0.5 Mg (3 Ml) Ud) 3 ml INH RQ3 [facility] CXR- patchy airspace dz at right lung base, otherwise clear. see full report. Start Solumedrol 125 IVP once Solumedrol 40mg IVP Q8H #13 Bipap 12/6 50% O2 Opioid abuse -psych consult, Dr. Bobo, help appreciated -pt is open to detox -Start Methadone 20mg PO once; followed by Methadone 15mg PO qD -drug screen: +urine opiate; +cocain -troponin negative x1 Hypertension 02/16: monitor BP, elevated this morning 187/88 Hydralazine 10mg PO once Prophylaxis -lovenox 30 IVP qD -SCDs -NS 0.9% 80cc/hr -> goal O2 Sat 88-92% (currently established on O2 NC 3.75 L/m) Case discussed with attending. All medical management as per Dr. Leida Mejia.
[2018-02-16] MEDS ORDERED: Albuterol-Ipratrop 3 mg / 0.5 (3 ml) UD INH STA (09:55)
[2018-02-16] MEDS: Enoxaparin 30 mg Syringe SC SCH (10:42)
--- NOTE | 2018-02-16 11:18 | PCM.PSYCH ---
Initial Psychiatric Evaluation - Initial Psychiatric Evaluation Type of Admission: Voluntary Legal Status: Capacity Chief Complaint (in patient's own words): "I'm withdrawing" History of Present Illness and Precipitating Events: Patient seen, chart reviewed, case discussed. Consult was requested for her opioid withdrawal and mood. She is known from previous admissions and consults Ms. Mooney is a 52 year old female, single with 7 children, homeless, panhandles. She relapsed recently with no definable trigger. She started using some time in her 30s. She has been snorting 15-20 bags of heroin daily and sniffing cocaine weekly as before. She has been to detox twice and rehab twice; both with poor results. Her longest period of sobriety was 2 years over a decade ago. She also smokes 1 ppd of cigarettes, denies ever alcohol or benzos. Complaining of chills, tremors, pains and other withdrawal symptoms. Denies SI/HI, AVH but feels depressed and very anxious. PMH: asthma, copd Psych: depression, anxiety FamHx: both sides have anxiety depression, denies SA Legal: incarcerated for 9 months for drug possession and skipping parole in 2013 Current Medications: Active Medications Generic Name Dose Route Start Last Admin Trade Name Freq PRN Reason Stop Dose Admin Albuterol/Ipratropium 3 ml 02/16/18 03:00 02/16/18 08:35 Duoneb 3 Mg/0.5 Mg (3 Ml) Ud INH 02/16/18 15:01 3 ml RQ3 [facility] Administration Enoxaparin Sodium 30 mg 02/16/18 10:00 02/16/18 10:42 Lovenox SC 30 mg DAILY [facility] Administration Sodium Chloride 1,000 mls @ 80 mls/hr 02/16/18 08:30 Sodium Chloride 0.9% IV .[id number] [facility] Methadone HCl 20 mg 02/16/18 11:30 Methadone PO 02/16/18 11:31 ONCE ONE Methadone HCl 0 mg 02/17/18 09:00 Methadone PO 02/21/18 08:59 Q24H [facility] Taper Past Psychiatric History - Past Psychiatric History Previous Treatment History: Inpatient Pertinent Medical Hx (Current Medical&Sleep Prob, Allergies): Allergies Allergy/AdvReac Type Severity Reaction Status Date / Time No Known Allergies Allergy Verified 02/15/18 22:59 Albuterol HFA [Ventolin HFA 90 mcg/actuation (8 g)] 1 - 2 puff IH Q4H PRN #1 bottle 02/02/18 predniSONE [predniSONE Tab] 60 mg PO DAILY #9 tab 02/13/18 Azithromycin 250 mg PO DAILY 4 Days tablet 02/14/18 Albuterol/Ipratropium [Duoneb 3 MG/3 Ml-0.5 MG/3 Ml 3 Ml] 3 ml IH TID #30 neb 02/15/18 Nebulizer [Aeroeclipse II] 1 each MC PRN PRN #1 each 02/15/18 Review of Systems - Neurological Neurological: Tremor - Psychiatric Psychiatric: Abnormal Sleep Pattern, Anhedonia, Anxiety, Behavioral Changes, Change in Appetite, Depression, Difficulty Concentrating, Irritability, Mood Swings. absent: Homicidal Ideation, Paranoia, Suicidal Ideation Mental Status Examination - Personal Presentation Personal Presentation: Looks older than stated age - Affect Affect: Constricted - Motor Activity Motor Activity: Calm - Reliability in Providing Information Reliability in Providing Information: Fair - Speech Speech: Organized - Mood Mood: Anxious - Formal Thought Process Formal Thought Process: No Impairment - Cognitive Functions Orientation: Person, Place, Situation, Time Sensorium: Alert Attention/Concentration: Easily distracted Abstract Thinking: [place] Estimate of Intelligence: Below average Judgement: Intact, as evidence by: Insight regarding need for hospitalization Memory: Recent intact, as evidence by: Ability to recall events of the day, Remote impaired as evidenced by: Inability to recall sig life events - Risk Risk: Withdrawal, Diminished functioning - Strength & Assets Inventory Strength & Assets Inventory: Cooperative - Limitations Limitations: Other DSM 5 DX - DSM 5 DSM 5 Diagnosis: Opioid withdrawal Opioid use d/o - severe Cocaine use d/o - severe Tobacco use d/o - severe Major depression, single, severe Personality d/o unspecified - Recommended/Plan of Treatment Treatment Recommendations and Plan of Treatment: Methadone detox As needed medications Gabapentin for augmentation and anxiety Remeron and seroquel for insomnia and depression All risks, benefits and alternatives of medications, including no medications, discussed and the patient understood and agreed. Supportive therapy and psychoeducation [place] for abstinence Encourage MAT such as methadone or suboxone, vivitrol Refer to rehab or IOP after detox Attend self-help groups as well [place] for smoking cessation and patch if needed 33 min - Smoking Cessation Smoking Cessation Initiated: Yes
[2018-02-16] MEDS ORDERED: MethylPREDNISolone 40 mg Vial IVP ONE (13:20)
[2018-02-16] MEDS: guaiFENesin DM 100 mg-10 mg/5 ml UD PO PRN (18:02)
[2018-02-16] MEDS: MethylPREDNISolone 40 mg Vial IVP SCH (20:28)
[2018-02-17] MEDS: Albuterol-Ipratrop 3 mg / 0.5 (3 ml) UD INH SCH ×5 (03:11→19:20)
[2018-02-17] MEDS: MethylPREDNISolone 40 mg Vial IVP SCH ×3 (03:40→19:50)
--- NOTE | 2018-02-17 07:05 | HP ---
HISTORY OF PRESENT ILLNESS: The patient admitted to the hospital with a complaint of generalized weakness, fatigue, tiredness, and shortness of breath. The patient has a history of COPD. PHYSICAL EXAMINATION: GENERAL: The patient is awake, alert, and oriented. VITAL SIGNS: Temperature 98, pulse 90. HEENT: Within normal limits. NECK: Supple. CHEST: Symmetrical. HEART: Regular. ABDOMEN: Soft. EXTREMITIES: No edema. ASSESSMENT AND PLAN: The patient suffers from chronic obstructive pulmonary disease. . Patient bedrest, Supportive care. Bryan Mejia MD
--- NOTE | 2018-02-17 08:46 | CP.PCM.PN ---
Subjective - Date & Time of Evaluation Date of Evaluation: 02/17/18 Time of Evaluation: 08:46 - Subjective Subjective: PGY3 Resident - Medicine Progress Note Patient seen and examined at bedside. Overnight, patient was very agitated, telling nursing and the on-call team that she was withdrawing. She received treatment by Dr. Bobo and the precision instrument maker team. Patient responded well, and continues to feel sleepy this morning. She is following commands and is AAOx3. She states she slept well after treatment. She reports her breathing is slowly improving. She would like the nicotine patch as she smokes roughly 1ppd. States she continues to feel mildly shaky. Denies f/c, headache, chest pain, cough, abdominal pain, n/v, d/c, or any additional acute complaints. Objective - Vital Signs/Intake and Output Vital Signs (last 24 hours): Temp Pulse Resp BP Pulse Ox 97.8 F 86 20 147/88 98 02/17/18 07:41 02/17/18 07:41 02/17/18 07:41 02/17/18 07:41 02/17/18 07:41 - Medications Medications: Current Medications Albuterol/Ipratropium (Duoneb 3 Mg/0.5 Mg (3 Ml) Ud) 3 ml INH RQ4 [facility] Last Admin: 02/17/18 03:11 Dose: 3 ml Enoxaparin Sodium (Lovenox) 30 mg SC DAILY [facility] Last Admin: 02/16/18 10:42 Dose: 30 mg Guaifenesin/Dextromethorphan (Robitussin Dm) 5 ml PO Q8H PRN PRN Reason: Cough Last Admin: 02/16/18 18:02 Dose: 5 ml Sodium Chloride (Sodium Chloride 0.9%) 1,000 mls @ 80 mls/hr IV .[id number] [facility] Last Admin: 02/16/18 09:15 Dose: Not Given Methylprednisolone (Solu-Medrol) 40 mg IVP Q8H [facility] Stop: 02/20/18 20:01 Last Admin: 02/17/18 03:40 Dose: 40 mg - Labs Labs: 02/16/18 00:12 02/16/18 00:12 - Additional Findings Additional findings: - Constitutional Appears: Non-toxic, No Acute Distress -lethargic / drowsy (2/2 acute treatment for withdrawal) - Head Exam Head Exam: ATRAUMATIC, NORMAL INSPECTION - Eye Exam Eye Exam: EOMI, Normal appearance - Respiratory Exam Respiratory Exam: +Rhonchi (moderate), +Wheezes (moderate). Absent: Rales -no accessory muscle use. - Cardiovascular Exam Cardiovascular Exam: Regular Rate, +S1, +S2 - GI/Abdominal Exam GI & Abdominal Exam: Soft, Normal Bowel Sounds. absent: Tenderness - Extremities Exam Extremities Exam: Full ROM, Normal Inspection. absent: Pedal Edema, Tenderness - Back Exam Back Exam: NORMAL INSPECTION. absent: CVA tenderness (L), CVA tenderness (R) - Neurological Exam Neurological Exam: Alert, Awake, Oriented x3 mild tremor no asterixis - Psychiatric Exam Psychiatric exam: Normal Affect, Depressed Mood - Skin Skin Exam: Dry, Intact, Normal Color, Warm Assessment and Plan - Assessment and Plan (Free Text) Assessment: COPD exacerbation 02/17: patient refused BiPAP yesterday. Continue with NC, maintaining O2 sat 88- 92%. 02/16: O2 sat on RA is 94%; patient placed on non-rebreather due to inc sensation of SOB, O2 Sat inc to 99% Duoneb 3 Mg/0.5 Mg (3 Ml) Ud) 3 ml INH RQ3 [facility] CXR- patchy airspace dz at right lung base, otherwise clear. see full report. Start Solumedrol 125 IVP once Solumedrol 40mg IVP Q8H #13 Bipap 12/ 50% O2 - goal O2 Sat 88-92% (currently established on O2 NC 3.75 L/m) Opioid abuse 02/17: Patient was withdrawing overnight and became very agitated. She received Seroquel 100mg PO x1; Clonidine 0.1mg x1; Overnight, pt also received: Ativan 1mg IVP x1; Librium 5mg x1; Zofran 4mg IVP x1. Continue methadone tx as per Dr. Bobo. -psych consult, Dr. Bobo, help appreciated -pt is open to detox -Start Methadone 20mg PO once; followed by Methadone 15mg PO qD -drug screen: +urine opiate; +cocain (No BBlockers) -troponin negative x1 Hypertension 02/17: BP 147/88, down from 187/88 on admission; continue to monitor, slightly elevated as pt is withdrawing from opiates / cocaine If BP remains elevated, after withdrawal resolves, consider lisinopril 02/16: monitor BP, elevated this morning 187/88 Hydralazine 10mg PO once Prophylaxis -lovenox 30 IVP qD -SCDs -NS 0.9% 80cc/hr Case discussed with attending. All medical management as per Dr. Leida Mejia.
[2018-02-17 08:49] LABS: BASO % 0.2 % (0.0-2.0); HEMOGLOBIN 11.3 g/dL (11.0-16.0); LYMPH # 0.4 K/uL (1.0-4.3); MEAN CELL VOLUME 90.2 fL (81.0-99.0); MEAN CORPUSCULAR HEMOGLOBIN 29.4 pg (27.0-31.0); MEAN CORPUSCULAR HGB CONC 32.6 g/dL (33.0-37.0); MEAN PLATELET VOLUME 8.2 fL (7.2-11.7); MONO # 0.3 K/uL (0.0-0.8); NEUT # 7.6 K/uL (1.8-7.0); NEUT % 91.8 % (50.0-75.0); PLATELET COUNT 290 K/uL (130-400); RBC 3.85 Mil/uL (3.80-5.20); RED CELL DISTRIBUTION WIDTH 14.5 % (11.5-14.5); WHITE BLOOD COUNT 8.3 K/uL (4.8-10.8)
[2018-02-17 09:09] LABS: ALB/GLOB RATIO 1.2 (1.0-2.1); ALBUMIN 3.2 g/dL (3.5-5.0); ALT/SGPT 34 U/L (9-52); AST/SGOT 22 U/L (14-36); BLOOD UREA NITROGEN 13 mg/dL (7-17); CALCIUM 8.7 mg/dl (8.6-10.4); GFR NON-AFRICAN AMERICAN > 60
[2018-02-17 09:38] LABS: BANDS 1 % (0-2); LYMPHOCYTE 7 % (20-40); MONOCYTE 1 % (0-10); MYELOCYTE 1 % (0-0); TOTAL CELLS COUNTED 100
[2018-02-17 09:39] LABS: ANISOCYTOSIS SLIGHT; HYPOCHROMIC SLIGHT; NEUTROPHIL 90 % (50-75); PLATELET ESTIMATE NORMAL (NORMAL); POIKILOCYTOSIS SLIGHT; TEARDROP CELLS SLIGHT
[2018-02-17] MEDS: Enoxaparin 30 mg Syringe SC SCH (10:14)
--- NOTE | 2018-02-17 12:57 | PCM.PYCHPN ---
Psychiatric Progress Note - Psychiatric Progress Note Patient seen today, length of contact: 16 min Patient Chief Complaint: "I feel sick" Problems Identified/Issues Discussed: She is seen, chart reviewed and case discussed She took her 9 am 15 mg methadone at 3 am after they had called me, b/c she was "withdrawing." So, new taper is adjusted as follows 10 mg this afternoon 10 mg tomorrow AM 5 mg AM She may get an extra 5 mg if objective signs are seen. Otherwise, not suicidal, not homicidal, anxious, irate and depressed. Support and psychoed given Meds adjusted Medication Change: Yes (detox changes daily) Medical Record Reviewed: Yes Mental Status Examination - Cognitive Function Orientation: Person, Place, Situation, Time Memory: Intact Attention: WNL Concentration: Poor Association: WNL Fund of Knowledge: WNL - Mood Mood: Anxious - Affect Affect: Constricted - Speech Speech: Appropriate - Formal Thought Process Formal Thought Process: No Impairment - Suicidal Ideation Suicidal Ideation: No - Homicidal Ideation Homicidal Ideation: No Goal/Treatment Plan - Goal/Treatment Plan Need for Continued Stay: Discharge may exacerbated symptoms, Severe functional impairment Progress Toward Problem(s) and Goals/Treatment Plan: Methadone detox As needed medications Gabapentin for augmentation and anxiety Remeron and seroquel Remeron and seroquel for insomnia and depression All risks, benefits and alternatives of medications, including no medications, discussed and the patient understood and agreed. Supportive therapy and psychoeducation [place] for abstinence Encourage MAT such as methadone or suboxone, vivitrol Refer to rehab or IOP after detox Attend self-help groups as well [place] for smoking cessation and patch if needed
[2018-02-17] MEDS ORDERED: Aluminum Hydroxide/Magnesium Hydroxide Susp (30 mL) PO PRN (12:58)
--- NOTE | 2018-02-17 14:48 | CARD ---
APPROVED REPORT Date of service: 02/15/2018 EKG Measurement Heart [id number] <Conclusion> Normal Sinus Otherwise normal ECG
[2018-02-17] MEDS ORDERED: Influenza Vaccine 60 MCG/0.5 ML SYR (3 yr & up) IM ONE (16:18)
[2018-02-17] MEDS ORDERED: Albuterol-Ipratrop 3 mg / 0.5 (3 ml) UD INH SCH (21:00)
[2018-02-18] MEDS: Albuterol-Ipratrop 3 mg / 0.5 (3 ml) UD INH SCH ×6 (00:31→19:40)
[2018-02-18] MEDS: MethylPREDNISolone 40 mg Vial IVP SCH ×3 (03:25→20:59)
[2018-02-18] MEDS: guaiFENesin DM 100 mg-10 mg/5 ml UD PO PRN (05:03)
[2018-02-18 06:32] LABS: BASO % 0.2 % (0.0-2.0); HEMOGLOBIN 11.4 g/dL (11.0-16.0); LYMPH # 0.6 K/uL (1.0-4.3); LYMPH % 5.1 % (20.0-40.0); MEAN CELL VOLUME 89.1 fL (81.0-99.0); MEAN CORPUSCULAR HEMOGLOBIN 28.1 pg (27.0-31.0); MEAN CORPUSCULAR HGB CONC 31.6 g/dL (33.0-37.0); MEAN PLATELET VOLUME 7.8 fL (7.2-11.7); MONO # 0.4 K/uL (0.0-0.8); MONO % 3.7 % (0.0-10.0); NEUT # 10.9 K/uL (1.8-7.0); PLATELET COUNT 319 K/uL (130-400); RBC 4.07 Mil/uL (3.80-5.20); RED CELL DISTRIBUTION WIDTH 14.8 % (11.5-14.5)
[2018-02-18 07:17] LABS: ALB/GLOB RATIO 1.3 (1.0-2.1); ALBUMIN 3.4 g/dL (3.5-5.0); ALT/SGPT 27 U/L (9-52); AST/SGOT 19 U/L (14-36); BLOOD UREA NITROGEN 17 mg/dL (7-17); CALCIUM 8.5 mg/dl (8.6-10.4); GFR NON-AFRICAN AMERICAN > 60
[2018-02-18 08:12] VITALS: RESP 20
[2018-02-18 08:21] LABS: LYMPHOCYTE 3 % (20-40); MONOCYTE 2 % (0-10); NEUTROPHIL 95 % (50-75); PLATELET ESTIMATE NORMAL (NORMAL); TOTAL CELLS COUNTED 100
[2018-02-18 08:22] LABS: HYPOCHROMIC SLIGHT; POLYCHROMIC SLIGHT
[2018-02-18] MEDS: Enoxaparin 30 mg Syringe SC SCH (09:49)
--- NOTE | 2018-02-18 14:21 | CP.PCM.PN ---
Subjective - Date & Time of Evaluation Date of Evaluation: 02/18/18 Time of Evaluation: 07:55 - Subjective Subjective: Medicine progress note ( Dr. Mejia's service) Patient was seen and examined at bedside. Patient was sleeping comfortably in bed in no acute distress. Patient denies any acute complaints. Patient is tolerating diet and ambulating Objective - Vital Signs/Intake and Output Vital Signs (last 24 hours): Temp Pulse Resp BP Pulse Ox 98.1 F 110 H 20 143/80 96 02/18/18 07:00 02/18/18 11:33 02/18/18 11:33 02/18/18 13:48 02/18/18 11:33 - Medications Medications: Current Medications Al Hydrox/Mg Hydrox/Simethicone (Maalox 30 Ml) 30 ml PO TID PRN PRN Reason: Indigestion / Heartburn Albuterol/Ipratropium (Duoneb 3 Mg/0.5 Mg (3 Ml) Ud) 3 ml INH RQ4 [facility] Last Admin: 02/18/18 07:55 Dose: 3 ml Clonidine HCl (Catapres) 0.1 mg PO Q4 PRN PRN Reason: COWS Score More or Equal to 5 Last Admin: 02/18/18 00:00 Dose: 0.1 mg Clonidine HCl (Catapres) 0.1 mg PO TID [facility] Stop: 02/21/18 14:01 Last Admin: 02/18/18 13:47 Dose: 0.1 mg Enoxaparin Sodium (Lovenox) 30 mg SC DAILY [facility] Last Admin: 02/18/18 09:49 Dose: Not Given Guaifenesin/Dextromethorphan (Robitussin Dm) 5 ml PO Q8H PRN PRN Reason: Cough Last Admin: 02/18/18 05:03 Dose: 5 ml Sodium Chloride (Sodium Chloride 0.9%) 1,000 mls @ 80 mls/hr IV .[id number] [facility] Last Admin: 02/16/18 09:15 Dose: Not Given Loperamide HCl (Imodium) 2 mg PO Q8 PRN PRN Reason: Diarrhea Methadone HCl (Methadone) 5 mg PO ONCE ONE Stop: 02/18/18 17:01 Methadone HCl (Methadone) 10 mg PO ONCE ONE Stop: 02/19/18 09:01 Methylprednisolone (Solu-Medrol) 40 mg IVP Q8H [facility] Stop: 02/20/18 20:01 Last Admin: 02/18/18 11:49 Dose: 40 mg Mirtazapine (Remeron) 15 mg PO [facility] Last Admin: 02/17/18 22:30 Dose: 15 mg Nicotine (Nicoderm Cq) 1 patch TD DAILY [facility] Last Admin: 02/18/18 09:48 Dose: 1 patch Ondansetron HCl (Zofran Tab) 4 mg PO Q8 PRN PRN Reason: Nausea/Vomiting Quetiapine Fumarate (Seroquel) 100 mg PO HS [facility] Last Admin: 02/17/18 22:30 Dose: 100 mg Quetiapine Fumarate (Seroquel) 25 mg PO TID [facility] Last Admin: 02/18/18 13:47 Dose: 25 mg - Labs Labs: 02/18/18 06:25 02/18/18 06:25 - Constitutional Appears: Well, No Acute Distress - Head Exam Head Exam: ATRAUMATIC, NORMAL INSPECTION - Eye Exam Eye Exam: EOMI, Normal appearance - ENT Exam ENT Exam: Mucous Membranes Moist - Respiratory Exam Respiratory Exam: Clear to Ausculation Bilateral, NORMAL BREATHING PATTERN. absent: Prolonged Expiratory Phase, Rhonchi, Wheezes, Respiratory Distress - Cardiovascular Exam Cardiovascular Exam: REGULAR RHYTHM, +S1, +S2, Murmur - GI/Abdominal Exam GI & Abdominal Exam: Soft, Normal Bowel Sounds. absent: Distended, Firm, Guarding, Rigid, Tenderness - Extremities Exam Extremities Exam: Normal Inspection. absent: Calf Tenderness, Pedal Edema - Neurological Exam Neurological Exam: Alert, Awake, Oriented x3 - Psychiatric Exam Psychiatric exam: Normal Affect - Skin Skin Exam: Normal Color Assessment and Plan (1) Substance abuse Assessment & Plan: UDS: + Opiates and cocaine Psych, Dr. Bobo on board - Management as per recommendation; currently on Methadone taper Status: Acute (2) COPD exacerbation Assessment & Plan: CXR- Limited patchy airspace disease right base with remaining lung perez clear. Left hemidiaphragm elevation is stable. Duoneb 3 ml INH RQ4H PRN Start Solumedrol 125 IVP once Solumedrol 40mg IVP Q8H Robitussin DM 5Ml PO Q8H PRN Status: Acute (3) Hypertension Assessment & Plan: Possibly secondary to substance withdrawal Clonidine 0.1mg PO TID Clonidine 0.1mg PO Q4 PRN Status: Acute (4) Tobacco abuse Assessment & Plan: Nicotine 1 patch TID daily prn Status: Acute (5) Prophylactic measure Assessment & Plan: DVT: Lovenox 30mg SC daily GI: Not indicated Disposition: Patient will receive last dose of methadone tomorrow and as per psych, patient can be discharge home if medically stable All plans and management discussed with Dr. Mejia Status: Acute
[2018-02-19] MEDS: Albuterol-Ipratrop 3 mg / 0.5 (3 ml) UD INH SCH ×4 (00:07→11:10)
[2018-02-19] MEDS: MethylPREDNISolone 40 mg Vial IVP SCH ×2 (03:08→12:58)
[2018-02-19 06:53] LABS: BASO % 0.1 % (0.0-2.0); HEMOGLOBIN 11.2 g/dL (11.0-16.0); LYMPH # 0.7 K/uL (1.0-4.3); LYMPH % 6.9 % (20.0-40.0); MEAN CELL VOLUME 89.5 fL (81.0-99.0); MEAN CORPUSCULAR HEMOGLOBIN 28.5 pg (27.0-31.0); MEAN CORPUSCULAR HGB CONC 31.8 g/dL (33.0-37.0); MEAN PLATELET VOLUME 8.2 fL (7.2-11.7); MONO # 0.4 K/uL (0.0-0.8); MONO % 3.5 % (0.0-10.0); NEUT # 9.5 K/uL (1.8-7.0); NEUT % 89.5 % (50.0-75.0); PLATELET COUNT 324 K/uL (130-400); RBC 3.94 Mil/uL (3.80-5.20); RED CELL DISTRIBUTION WIDTH 14.9 % (11.5-14.5); WHITE BLOOD COUNT 10.6 K/uL (4.8-10.8)
[2018-02-19 07:30] LABS: ALB/GLOB RATIO 1.2 (1.0-2.1); ALBUMIN 3.1 g/dL (3.5-5.0); ALT/SGPT 28 U/L (9-52); AST/SGOT 18 U/L (14-36); BLOOD UREA NITROGEN 18 mg/dL (7-17); CALCIUM 8.4 mg/dl (8.6-10.4); GFR NON-AFRICAN AMERICAN > 60
[2018-02-19 08:08] VITALS: BP 134/75; PULSE 70; TEMP 97.9; O2SAT 95
[2018-02-19 08:17] LABS: LYMPHOCYTE 3 % (20-40); MONOCYTE 1 % (0-10); NEUTROPHIL 96 % (50-75); PLATELET ESTIMATE NORMAL (NORMAL); TOTAL CELLS COUNTED 100
[2018-02-19] MEDS: Enoxaparin 30 mg Syringe SC SCH ×2 (09:36→09:37)
--- NOTE | 2018-02-19 12:53 | CP.PCM.PN ---
Subjective - Date & Time of Evaluation Date of Evaluation: 02/19/18 Time of Evaluation: 09:30 - Subjective Subjective: Resident Progress Note for Dr. Mejia Patient seen and examined at bedside. No acute events reported overnight. Patient understands she is on methadone taper. Patient is requesting for inpatient Detox as she states that she will likely to use heroin again if she gets discharged home. Patient is ambulating freely and denies fever, chills, shortness of breath, chest pain, or urinary symptoms. Objective - Vital Signs/Intake and Output Vital Signs (last 24 hours): Temp Pulse Resp BP Pulse Ox 97.9 F 70 20 134/75 95 02/19/18 08:06 02/19/18 08:06 02/19/18 08:06 02/19/18 08:06 02/19/18 08:06 - Medications Medications: Current Medications Al Hydrox/Mg Hydrox/Simethicone (Maalox 30 Ml) 30 ml PO TID PRN PRN Reason: Indigestion / Heartburn Albuterol/Ipratropium (Duoneb 3 Mg/0.5 Mg (3 Ml) Ud) 3 ml INH RQ4 [facility] Last Admin: 02/19/18 11:10 Dose: 3 ml Clonidine HCl (Catapres) 0.1 mg PO Q4 PRN PRN Reason: COWS Score More or Equal to 5 Last Admin: 02/18/18 00:00 Dose: 0.1 mg Clonidine HCl (Catapres) 0.1 mg PO TID [facility] Stop: 02/21/18 14:01 Last Admin: 02/19/18 09:37 Dose: 0.1 mg Enoxaparin Sodium (Lovenox) 30 mg SC DAILY [facility] Last Admin: 02/19/18 09:37 Dose: Not Given Guaifenesin/Dextromethorphan (Robitussin Dm) 5 ml PO Q8H PRN PRN Reason: Cough Last Admin: 02/18/18 05:03 Dose: 5 ml Sodium Chloride (Sodium Chloride 0.9%) 1,000 mls @ 80 mls/hr IV .[id number] [facility] Last Admin: 02/16/18 09:15 Dose: Not Given Loperamide HCl (Imodium) 2 mg PO Q8 PRN PRN Reason: Diarrhea Methylprednisolone (Solu-Medrol) 40 mg IVP Q8H [facility] Stop: 02/20/18 20:01 Last Admin: 02/19/18 03:08 Dose: 40 mg Mirtazapine (Remeron) 15 mg PO HS [facility] Last Admin: 02/18/18 22:08 Dose: 15 mg Nicotine (Nicoderm Cq) 1 patch TD DAILY [facility] Last Admin: 02/19/18 09:37 Dose: 1 patch Ondansetron HCl (Zofran Tab) 4 mg PO Q8 PRN PRN Reason: Nausea/Vomiting Quetiapine Fumarate (Seroquel) 100 mg PO HS [facility] Last Admin: 02/18/18 22:08 Dose: 100 mg Quetiapine Fumarate (Seroquel) 25 mg PO TID [facility] Last Admin: 02/19/18 09:37 Dose: 25 mg - Labs Labs: 02/19/18 06:40 02/19/18 06:40 - Additional Findings Additional findings: - Constitutional Appears: Well, No Acute Distress - Head Exam Head Exam: ATRAUMATIC, NORMAL INSPECTION - Eye Exam Eye Exam: EOMI, Normal appearance - ENT Exam ENT Exam: Mucous Membranes Moist - Respiratory Exam Respiratory Exam: Clear to Ausculation Bilateral, NORMAL BREATHING PATTERN. absent: Prolonged Expiratory Phase, Rhonchi, Wheezes, Respiratory Distress - Cardiovascular Exam Cardiovascular Exam: REGULAR RHYTHM, +S1, +S2, Murmur - GI/Abdominal Exam GI & Abdominal Exam: Soft, Normal Bowel Sounds. absent: Distended, Firm, Guarding, Rigid, Tenderness - Extremities Exam Extremities Exam: Normal Inspection. absent: Calf Tenderness, Pedal Edema - Neurological Exam Neurological Exam: Alert, Awake, Oriented x3 - Psychiatric Exam Psychiatric exam: Normal Affect - Skin Skin Exam: Normal Color Assessment and Plan - Assessment and Plan (Free Text) Assessment: (1) Substance abuse Assessment & Plan: UDS: + Opiates and cocaine Psych, Dr. Bobo on board - Management as per recommendation; currently on Methadone taper (20mg on 02/18, receiving 15mg today) - Pending detox placement per Psychiatry Status: Acute (2) COPD exacerbation Assessment & Plan: Improved CXR- Limited patchy airspace disease right base with remaining lung perez clear. Left hemidiaphragm elevation is stable. Duoneb 3 ml INH RQ4H PRN Solumedrol 40mg IVP Q12H Robitussin DM 5Ml PO Q8H PRN Status: Acute (3) Hypertension Assessment & Plan: Possibly secondary to substance withdrawal Clonidine 0.1mg PO TID Clonidine 0.1mg PO Q4 PRN Status: Acute (4) Tobacco abuse Assessment & Plan: Nicotine 1 patch TID daily prn Status: Acute (5) Prophylactic measure Assessment & Plan: DVT: Lovenox 30mg SC daily GI: Not indicated Disposition: Medically stable, will transfer to detox when bed becomes available All plans and management discussed with Dr. Mejia Status: Acute
--- NOTE | 2018-02-19 14:18 | PCM.PYCHPN ---
Psychiatric Progress Note - Psychiatric Progress Note Patient seen today, length of contact: 16 min Patient Chief Complaint: "I feel sick" Problems Identified/Issues Discussed: She is seen, chart reviewed and case discussed She took her 9 am 15 mg methadone at 3 am after they had called me, b/c she was "withdrawing." So, new taper is adjusted as follows 10 mg this afternoon 10 mg tomorrow AM 5 mg AM She may get an extra 5 mg if objective signs are seen. Otherwise, not suicidal, not homicidal, anxious, irate and depressed. Support and psychoed given Meds adjusted Medication Change: Yes (detox changes daily) Medical Record Reviewed: Yes Mental Status Examination - Cognitive Function Orientation: Person, Place, Situation, Time Memory: Intact Attention: WNL Concentration: Poor Association: WNL Fund of Knowledge: WNL - Mood Mood: Anxious - Affect Affect: Constricted - Speech Speech: Appropriate - Formal Thought Process Formal Thought Process: No Impairment - Suicidal Ideation Suicidal Ideation: No - Homicidal Ideation Homicidal Ideation: No Goal/Treatment Plan - Goal/Treatment Plan Need for Continued Stay: Discharge may exacerbated symptoms, Severe functional impairment Progress Toward Problem(s) and Goals/Treatment Plan: Methadone detox As needed medications Gabapentin for augmentation and anxiety Remeron and seroquel Remeron and seroquel for insomnia and depression All risks, benefits and alternatives of medications, including no medications, discussed and the patient understood and agreed. Supportive therapy and psychoeducation LA for abstinence Encourage MAT such as methadone or suboxone, vivitrol Refer to rehab or IOP after detox Attend self-help groups as well LA for smoking cessation and patch if needed
--- NOTE | 2018-02-19 14:19 | PCM.PYCHPN ---
Psychiatric Progress Note - Psychiatric Progress Note Patient seen today, length of contact: 16 min Patient Chief Complaint: "I need help" Problems Identified/Issues Discussed: She is seen, chart reviewed and case discussed ddetox extended - Today is 10+5 Tomorrow is 5+5 Sat is the last dose 5 mg Spoke to JAE - [facility] Medication Change: Yes (detox changes daily) Medical Record Reviewed: Yes Mental Status Examination - Cognitive Function Orientation: Person, Place, Situation, Time Memory: Intact Attention: WNL Concentration: Poor Association: WNL Fund of Knowledge: WNL - Mood Mood: Anxious - Affect Affect: Constricted - Speech Speech: Appropriate - Formal Thought Process Formal Thought Process: No Impairment - Suicidal Ideation Suicidal Ideation: No - Homicidal Ideation Homicidal Ideation: No Goal/Treatment Plan - Goal/Treatment Plan Need for Continued Stay: Discharge may exacerbated symptoms, Severe functional impairment Progress Toward Problem(s) and Goals/Treatment Plan: Methadone detox As needed medications Gabapentin for augmentation and anxiety Remeron and seroquel Remeron and seroquel for insomnia and depression All risks, benefits and alternatives of medications, including no medications, discussed and the patient understood and agreed. Supportive therapy and psychoeducation PA for abstinence Encourage MAT such as methadone or suboxone, vivitrol Refer to rehab or IOP after detox Attend self-help groups as well PA for smoking cessation and patch if needed
[2018-02-19] MEDS ORDERED: MethylPREDNISolone 40 mg Vial IVP SCH (22:00)
== END 2018-02-19 15:24 | disposition left against medical advice (07) | DRG 430 ==
LOC: C.ER 22:53 → C.5S 02-16 01:26
PROVIDERS: ADMIT Internal Medicine Pulmonary Disease; ATTEND Internal Medicine Pulmonary Disease
DX: F32.2 Major depressive disorder, single episode, severe without psychotic features (principal); F11.23 Opioid dependence with withdrawal; J44.1 Chronic obstructive pulmonary disease with (acute) exacerbation; N18.9 Chronic kidney disease, unspecified; F14.90 Cocaine use, unspecified, uncomplicated; F17.210 Nicotine dependence, cigarettes, uncomplicated; F41.8 Other specified anxiety disorders; G47.00 Insomnia, unspecified; I12.9 Hypertensive chronic kidney disease with stage 1 through stage 4 chronic kidney disease, or unspecified chronic kidney disease

== ENCOUNTER 2018-04-21 07:44 | Observation (INO) | payer OTHER ==
[2018-04-21 07:44] VITALS: BMI 20.1
[2018-04-21] MEDS ORDERED: MethylPREDNISolone 40 mg Vial IVP STA (08:14)
[2018-04-21] MEDS ORDERED: Albuterol-Ipratrop 3 mg / 0.5 (3 ml) UD INH STA ×3 (08:15→09:27)
[2018-04-21] MEDS ORDERED: Magnesium Sulfate 1 gm in D5W 1 GM/100 ML BAG IVPB ONE (08:17)
[2018-04-21 08:26] LABS: BASO # 0.1 K/uL (0.0-0.2); BASO % 0.7 % (0.0-2.0); EOS # 0.1 K/uL (0.0-0.7); EOS % 0.7 % (0.0-4.0); HEMOGLOBIN 10.8 g/dL (11.0-16.0); LYMPH # 2.3 K/uL (1.0-4.3); MEAN CORPUSCULAR HEMOGLOBIN 28.8 pg (27.0-31.0); MEAN PLATELET VOLUME 7.1 fL (7.2-11.7); MONO # 0.7 K/uL (0.0-0.8); MONO % 7.5 % (0.0-10.0); NEUT # 5.7 K/uL (1.8-7.0); NEUT % 65.1 % (50.0-75.0); RBC 3.75 Mil/uL (3.80-5.20); RED CELL DISTRIBUTION WIDTH 16.3 % (11.5-14.5); WHITE BLOOD COUNT 8.8 K/uL (4.8-10.8)
[2018-04-21 08:28] LABS: MEAN CELL VOLUME 87.2 fL (81.0-99.0)
[2018-04-21] MEDS ORDERED: Albuterol-Ipratrop 3 mg / 0.5 (3 ml) UD ONE ×2 (08:37→09:28)
--- NOTE | 2018-04-21 08:50 | RAD ---
Date of service: 04/21/2018 HISTORY: cough COMPARISON: 03/26/2018. FINDINGS: LUNGS: The lungs are well inflated. There is chronic atelectasis in the right lower lobe. Also noted is mild pulmonary venous congestion. PLEURA: No pleural effusions or pneumothorax. CARDIOVASCULAR: The heart is normal in size. No aortic atherosclerotic calcifications present. OSSEOUS STRUCTURES: Within normal limits for the patient's age. VISUALIZED UPPER ABDOMEN: Normal. OTHER FINDINGS: None. IMPRESSION: No acute findings. No significant interval change.
--- NOTE | 2018-04-21 09:05 | C.PDOC ---
History Of Present Illness 52 y/o female pt with hx of COPD and asthma presents to the ER c/o SOB for x1 day. Pt tried using her nebulizer for her sx but with no relief. Associated sx includes mild cough. Pt says it feels like her asthma. Pt states she received steroids last week for her asthma. Pt denies any hx of intubation, fever, chills, abdominal pain or any other pain. Pt notes she was smoking up until x2 days ago. Time Seen by Provider: 04/21/18 07:52 Chief Complaint (Nursing): Shortness Of Breath History Per: Patient History/Exam Limitations: no limitations Onset/Duration Of Symptoms: Days (x1) Current Symptoms Are (Timing): Still Present Initiating Event: Upper Respiratory Illness Past Medical History Reviewed: Historical Data, Nursing Documentation, Vital Signs Vital Signs: Last Vital Signs Temp 97.8 F 04/21/18 07:52 Pulse 66 04/21/18 08:11 Resp 20 04/21/18 08:11 BP 162/92 H 04/21/18 07:52 Pulse Ox 94 L 04/21/18 08:11 - Medical History PMH: Anxiety, Asthma, Back Problems, Bronchitis, COPD, Depression, Kidney Stones (RIGHT), Pneumonia, Chronic Kidney Disease Comment Only: Gastritis (Patient denies gatritis) - [facility] Procedures (01/05/18) CLOSURE SKIN & SUBCUTANEOUS NEC (04/25/13) DETOXIFICATION SERVICES FOR SUBSTANCE ABUSE TREATMENT (12/24/17) INDIV PSYCHOTHERAPY FOR SUBSTANCE ABUSE TREATMENT, SUPPORT (05/23/16) INJECT/INFUSE NEC (06/22/14) INTRODUCE OF OTH THERAP SUBST INTO RESP TRACT, VIA OPENING (12/16/17) INTRODUCTION OF ANTI-INFLAM INTO RESP TRACT, VIA OPENING (03/16/15) INTRODUCTION OF SERUM/TOX/VACCINE INTO MUSCLE, PERC APPROACH (03/16/15) MEDICATION MANAGEMENT (12/24/17) MEDS MGMT FOR SUBSTANCE ABUSE TREATMENT, METHADONE MAINT (12/24/17) NEBULIZER THERAPY (06/22/14) TETANUS TOXOID ADMINIST (04/25/13) Family History: States: Unknown Family Hx - Social History Hx Tobacco Use: Yes (3-4 cigarettes a day) Hx Alcohol Use: No (DENIES) Hx Substance Use: Yes (HEROIN AND COCAINE USED. LAST USED HEROIN TODAY,SNIFFED 10 BAGS THIS AM.) - Immunization History Hx Tetanus Toxoid Vaccination: Yes Hx Influenza Vaccination: Yes Hx Pneumococcal Vaccination: Yes Review Of Systems Constitutional: Negative for: Fever, Chills, Other (hx of intubation ) Eyes: Negative for: Pain ENT: Negative for: Ear Pain Cardiovascular: Negative for: Chest Pain Respiratory: Positive for: Cough (mild ), Shortness of Breath Gastrointestinal: Negative for: Abdominal Pain Genitourinary: Negative for: Dysuria, Frequency Musculoskeletal: Negative for: Neck Pain Skin: Negative for: Rash Neurological: Negative for: Weakness, Numbness Physical Exam - Physical Exam Appears: Non-toxic, No Acute Distress, Other (smells like tobacco) Skin: Warm, Dry, No Rash Head: Normacephalic Eye(s): bilateral: Normal Inspection Nose: Normal Oral Mucosa: Moist Throat: Normal Neck: Normal ROM, Supple Cardiovascular: Rhythm Regular Respiratory: No Rales, No Rhonchi, No Stridor, Wheezing (b/l ) Gastrointestinal/Abdominal: Soft, No Tenderness Neurological/Psych: Oriented x3, Normal Speech ED Course And Treatment - Laboratory Results Result Diagrams: 04/21/18 08:22 04/21/18 08:22 Lab Results: Troponin I < 0.0120 ng/mL (0.00-0.120) 04/21/18 08:22 O2 Sat by Pulse Oximetry: 94 (RA) Pulse Ox Interpretation: Normal Medical Decision Making Medical Decision Making: Impression: SOB Plans: -- chem labs -- blood work -- EKG -- CXR -- albuterol -- Magnesium sulfate -- solu-medrol Chest XR results: Accession No. : [id number] Patient Name / ID : NAVI MEDEIROS / [id number] Exam Date : 04/21/2018 08:29:08 ( Approved ) Study Comment : Sex / Age : F / 52Y Creator : kailee marin Dictator : Sarah Kinney MD Milling Planer Operator : Conical Mixer : Sarah Kinney MD Approver2 : Report Date : 04/21/2018 08:31:58 My Comment : Date of service: 04/21/2018 HISTORY: cough COMPARISON: 03/26/2018. FINDINGS: LUNGS: The lungs are well inflated. There is chronic atelectasis in the right lower lobe. Also noted is mild pulmonary venous congestion. PLEURA: No pleural effusions or pneumothorax. CARDIOVASCULAR: The heart is normal in size. No aortic atherosclerotic calcifications present. OSSEOUS STRUCTURES: Within normal limits for the patient's age. VISUALIZED UPPER ABDOMEN: Normal. OTHER FINDINGS: None. IMPRESSION: No acute findings. No significant interval change. 10:27AM EKG shows sinus bradycardia at 57bpm with LVH. Cxray negative. Given duonebs x 3, solumedrol, and Mg. Persistent wheezing with O2 sat:92%. Spoke to Dr. Mejia who is requesting hospitalist observation. Spoke to hospitalist who reports that as patient has insurance should go to medicine production supervisor. Paged Dr. Sanchez and accepted by Dr. Sanchez Disposition - Disposition Disposition: HOSPITALIZED Disposition Time: 10:27 Condition: FAIR - Clinical Impression Clinical Impression: Chr obstructive pulmonary disease w/ acute lower respiratory infxn, Exacerbation of asthma, COPD exacerbation - Scribe Statement The provider has reviewed the documentation as recorded by the Georgeibjuan carlos Justice Do Provider Attestation: All medical record entries made by the Scribe were at my direction and personally dictated by me. I have reviewed the chart and agree that the record accurately reflects my personal performance of the history, physical exam, medical decision making, and the department course for this patient. I have also personally directed, reviewed, and agree with the discharge instructions and disposition.
[2018-04-21 09:12] LABS: AST/SGOT 24 U/L (14-36)
[2018-04-21 09:13] LABS: ALB/GLOB RATIO 1.7 (1.0-2.1); ALBUMIN 3.3 g/dL (3.5-5.0); ALT/SGPT 26 U/L (9-52); BLOOD UREA NITROGEN 10 mg/dL (7-17); CALCIUM 7.7 mg/dl (8.6-10.4); GFR NON-AFRICAN AMERICAN > 60
--- NOTE | 2018-04-21 11:58 | CP.PCM.HP ---
History of Present Illness - History of Present Illness History of Present Illness: 52 y/o female pt with hx of COPD and asthma presents to the ER c/o SOB for x1 day. Pt tried using her nebulizer for her sx but with no relief. Associated sx includes mild cough. Pt says it feels like her asthma. Pt states she received steroids last week for her asthma. Pt denies any hx of intubation, Present on Admission - Present on Admission Any Indicators Present on Admission: No Review of Systems - Review of Systems All systems: reviewed and no additional remarkable complaints except (sob , whe ezing) Past Patient History - Infectious Disease Hx of Infectious Diseases: None - Past Medical History & Family History Past Medical History?: Yes - Past Social History Smoking Status: Current Some Days Smoker - CARDIAC Hx Hypertension: No - PULMONARY Hx Asthma: Yes Hx Bronchitis: Yes Hx Chronic Obstructive Pulmonary Disease (COPD): Yes Hx Pneumonia: Yes - NEUROLOGICAL Hx Seizures: No - HEENT Hx HEENT Problems: No - RENAL Hx Chronic Kidney Disease: Yes Hx Kidney Stones: Yes (RIGHT) - ENDOCRINE/METABOLIC Hx Endocrine Disorders: No - HEMATOLOGICAL/ONCOLOGICAL Hx Human Immunodeficiency Virus (HIV): No - INTEGUMENTARY Hx Dermatological Problems: Yes (TATTOOS) - MUSCULOSKELETAL/RHEUMATOLOGICAL Hx Musculoskeletal Disorders: Yes Hx Back Pain: Yes Hx Falls: Yes - GASTROINTESTINAL Hx Gastritis: (Patient denies gatritis) - GENITOURINARY/GYNECOLOGICAL Hx Sexually Transmitted Disorders: No - PSYCHIATRIC Hx Anxiety: Yes Hx Depression: Yes Hx Substance Use: Yes (HEROIN AND COCAINE USED. LAST USED HEROIN TODAY,SNIFFED 10 BAGS THIS AM.) - SURGICAL HISTORY Other/Comment: Hx Kidney stone removal lithotripsy - ANESTHESIA Hx Anesthesia: Yes Hx Anesthesia Reactions: No Hx Malignant Hyperthermia: No Meds Allergies/Adverse Reactions: Allergies Allergy/AdvReac Type Severity Reaction Status Date / Time No Known Allergies Allergy Verified 04/21/18 07:53 Physical Exam - Head Exam Head Exam: ATRAUMATIC, NORMAL INSPECTION, NORMOCEPHALIC - Eye Exam Eye Exam: EOMI, Normal appearance, PERRL - ENT Exam ENT Exam: Mucous Membranes Dry - Neck Exam Neck exam: Positive for: Normal Inspection - Respiratory Exam Respiratory Exam: Accessory Muscle Use, Rhonchi, Wheezes - Cardiovascular Exam Cardiovascular Exam: REGULAR RHYTHM - GI/Abdominal Exam GI & Abdominal Exam: Normal Bowel Sounds, Soft. absent: Tenderness - Rectal Exam Rectal Exam: Deferred - Back Exam Back exam: absent: CVA tenderness (L), CVA tenderness (R) - Neurological Exam Neurological exam: Alert, Altered, CN II-XII Intact, Oriented x3, Reflexes Normal Results - Vital Signs Recent Vital Signs: Last Vital Signs Temp 98.5 F 04/21/18 10:08 Pulse 100 H 04/21/18 11:45 Resp 24 04/21/18 11:45 BP 149/108 H 04/21/18 11:45 Pulse Ox 95 04/21/18 11:45 - Labs Result Diagrams: 04/21/18 08:22 04/21/18 08:22 Labs: Laboratory Results - last 24 hr 04/21/18 04/21/18 08:22 08:22 WBC 8.8 RBC 3.75 L Hgb 10.8 L Hct 32.7 L MCV 87.2 D MCH 28.8 MCHC 33.0 RDW 16.3 H Plt Count 411 H MPV 7.1 L Neut % (Auto) 65.1 Lymph % (Auto) 26.0 [place] % (Auto) 7.5 Eos % (Auto) 0.7 Baso % (Auto) 0.7 Neut # (Auto) 5.7 Lymph # (Auto) 2.3 [place] # (Auto) 0.7 Eos # (Auto) 0.1 Baso # (Auto) 0.1 Sodium 135 Potassium 3.8 Chloride 96 L Carbon Dioxide 35 H Anion Gap 9 L BUN 10 Creatinine 0.4 L Est GFR ( Amer) > 60 Est GFR (Non-Af Amer) > 60 Random Glucose 83 Calcium 7.7 L Total Bilirubin 0.3 AST 24 ALT 26 Alkaline Phosphatase 79 Troponin I < 0.0120 Total Protein 5.3 L Albumin 3.3 L Globulin 1.9 L Albumin/Globulin Ratio 1.7 Assessment & Plan (1) COPD exacerbation Status: Acute Priority: High
[2018-04-21] MEDS: Albuterol-Ipratrop 3 mg / 0.5 (3 ml) UD INH SCH ×4 (12:00→23:52)
[2018-04-21] MEDS: MethylPREDNISolone 40 mg Vial IVP SCH ×2 (12:52→19:27)
[2018-04-21] MEDS ORDERED: Hemorrohoidal Ointment (2 oz) TOP PRN (17:20)
[2018-04-21 17:32] VITALS: RESP 20
[2018-04-22] MEDS: MethylPREDNISolone 40 mg Vial IVP SCH ×2 (03:37→12:23)
[2018-04-22] MEDS: Albuterol-Ipratrop 3 mg / 0.5 (3 ml) UD INH SCH ×3 (05:04→11:05)
[2018-04-22 07:16] LABS: BASO % 0.1 % (0.0-2.0); HEMOGLOBIN 11.9 g/dL (11.0-16.0); LYMPH # 0.8 K/uL (1.0-4.3); LYMPH % 5.1 % (20.0-40.0); MEAN CELL VOLUME 85.8 fL (81.0-99.0); MEAN CORPUSCULAR HEMOGLOBIN 27.7 pg (27.0-31.0); MEAN CORPUSCULAR HGB CONC 32.3 g/dL (33.0-37.0); MEAN PLATELET VOLUME 7.6 fL (7.2-11.7); MONO # 0.5 K/uL (0.0-0.8); MONO % 3.1 % (0.0-10.0); NEUT % 91.7 % (50.0-75.0); PLATELET COUNT 491 K/uL (130-400); RBC 4.28 Mil/uL (3.80-5.20); RED CELL DISTRIBUTION WIDTH 16.3 % (11.5-14.5)
[2018-04-22 07:33] LABS: ALB/GLOB RATIO 1.4 (1.0-2.1); ALBUMIN 3.8 g/dL (3.5-5.0); ALT/SGPT 31 U/L (9-52); AST/SGOT 34 U/L (14-36); BLOOD UREA NITROGEN 8 mg/dL (7-17); GFR NON-AFRICAN AMERICAN > 60; WHITE BLOOD COUNT 15.3 K/uL (4.8-10.8)
[2018-04-22] MEDS ORDERED: [UNRECOGNIZED DRUG - OTHER] IH SCH (08:15)
[2018-04-22] MEDS ORDERED: FLUTICASONE IH SCH (08:15)
[2018-04-22] MEDS ORDERED: SALMETEROL IH SCH (08:15)
[2018-04-22 08:29] VITALS: BP 177/98; TEMP 98.2; O2SAT 98
[2018-04-22 08:34] VITALS: PULSE 87
[2018-04-22 08:56] LABS: LYMPHOCYTE 2 % (20-40); MONOCYTE 5 % (0-10); NEUTROPHIL 93 % (50-75); PLATELET ESTIMATE SLIGHTLY INCREASED (NORMAL); TOTAL CELLS COUNTED 100
[2018-04-22 08:57] LABS: ANISOCYTOSIS SLIGHT; HYPOCHROMIC SLIGHT
--- NOTE | 2018-04-22 10:12 | PCM.PSYCH ---
Initial Psychiatric Evaluation - Initial Psychiatric Evaluation Type of Admission: Voluntary Legal Status: Capacity Chief Complaint (in patient's own words): I relapsed on heroin.' History of Present Illness and Precipitating Events: Patient is a 52 years old Female, single, homeless, and unemployed. She presents to the ED for shortness of breath and heroin abuse. The patient was consulted by psychiatry today. Sole Blacker is familiar with this patient. Patient has history of multiple admissions at [facility] because of asthma exacerbation and heroin abuse. Patient reports that soon after discharge from the hospital she relapsed on heroin and started abusing 10-20 bags of heroin IV daily. She abuses 20 bags, daily, and started having withdrawal symptoms and developed shortness of breath so she came to the hospital to get help. She reports withdrawal symptoms including nausea, vomiting, cramps, joint pain and muscle aches and pain. She reports irritable mood but denies any feelings of hopelessness or helplessness. She denies any suicidal or homicidal ideation, auditory or visual hallucinations, and paranoia. Patient reports that she has been to rehab and detox twice and has relapsed shortly after both times. Patient denies any overdoses or Narcan administration. Patient denies any follow-up, medication compliance, or attending NA meetings. Her longest period of sobriety was for 2 years, about ten years ago. Patient admits to smoking 2 PPD for several years, denies any alcohol, cocaine or benzo use. Past Psych history: depression, GIL Family Psych History: GIL on both sides of the family PMHx: asthma, COPD Meds: non-compliant Current Medications: Active Medications Generic Name Dose Route Start Last Admin Trade Name Amberly PRN Reason Stop Dose Admin Albuterol/Ipratropium 3 ml 04/21/18 12:00 04/22/18 07:45 Duoneb 3 Mg/0.5 Mg (3 Ml) Ud INH 3 ml RQ4 HARPREET Administration Clonidine HCl 0.1 mg 04/22/18 08:30 04/22/18 09:47 Catapres PO 0.1 mg Q6H HARPREET Administration Heparin Sodium (Porcine) 5,000 units 04/22/18 10:00 04/22/18 09:49 Heparin SC Not Given Q12 HARPREET Methylprednisolone 40 mg 04/21/18 12:00 04/22/18 03:37 Solu-Medrol IVP 40 mg Q8H HARPREET Administration Multi-Ingredient Ointment 0 ea 04/21/18 17:20 Prep-Hem TOP BID PRN Hemorrhoids Tramadol HCl 50 mg 04/21/18 19:12 04/22/18 05:00 Ultram PO 50 mg BID PRN Administration Pain, moderate (4-7) Past Psychiatric History - Past Psychiatric History Previous Treatment History: Inpatient Pertinent Medical Hx (Current Medical&Sleep Prob, Allergies): Allergies Allergy/AdvReac Type Severity Reaction Status Date / Time No Known Allergies Allergy Verified 04/21/18 07:53 Nebulizer [Aeroeclipse II] 1 each MC PRN PRN #1 each 02/15/18 Benzonatate 200 mg PO TID #21 capsule 03/10/18 Albuterol 0.083% [Albuterol 0.083% Inhal Jasmin (2.5 mg/3 ml) UD] 3 ml IH Q8 #1 neb 03/21/18 Fluticasone/Salmeterol 100/50 [Advair Diskus 100/50] 1 puff INH BID #1 puff 03/21/18 Non-Formulary 1 ea .ROUTE Q6 #1 ea 03/21/18 predniSONE [predniSONE Tab] 20 mg PO BID 5 Days tab 03/31/18 Albuterol HFA [Ventolin HFA 90 mcg/actuation (8 g)] 1 - 2 puff IH Q4H PRN #1 bottle 04/02/18 Fluticasone/Salmeterol 250/50 [Advair Diskus] 1 dsk IH Q4H #2 puff 04/02/18 Methylprednisolone [Medrol Dose Pack (21 tabs)] 4 mg PO DAILY #21 mg 04/02/18 levoFLOXacin [Levaquin] 750 mg PO DAILY #5 tab 04/02/18 Review of Systems - Review of Systems All systems: reviewed and no additional remarkable complaints except - Psychiatric Psychiatric: Anxiety, Irritability. absent: Suicidal Ideation Mental Status Examination - Personal Presentation Personal Presentation: Looks stated age - Affect Affect: Constricted - Motor Activity Motor Activity: Calm - Reliability in Providing Information Reliability in Providing Information: Fair - Speech Speech: Organized - Mood Mood: Anxious - Formal Thought Process Formal Thought Process: No Impairment - Obsessions/Compulsions Obsessions: No Compulsions: No - Cognitive Functions Orientation: Person, Place, Situation, Time Sensorium: Alert Attention/Concentration: Attentive Abstract Thinking: As evidence by abstract perception of proverbs Estimate of Intelligence: Below average Judgement: Imparied, as evidence by: Poor judgement, Intact, as evidence by: Insight regarding need for hospitalization - Risk Risk: Withdrawal, Diminished functioning - Limitations Limitations: Living alone DSM 5 DX - DSM 5 DSM 5 Diagnosis: Opioid use disorder severe Opioid withdrawal Major depressive disorder recurrent mild - Recommended/Plan of Treatment Treatment Recommendations and Plan of Treatment: Supportive therapy Methadone taper Patient psychiatrically stable and clear - Smoking Cessation Smoking Cessation Initiated: No
--- NOTE | 2018-04-22 11:45 | CP.PCM.PN ---
Subjective - Date & Time of Evaluation Date of Evaluation: 04/22/18 Time of Evaluation: 11:42 - Subjective Subjective: CHIEF COMPLAINTS TODAY : SOB , WHEEZING AND GOING IN WITHDRAWL FROM HEROIN ROS. HEENT : N. Resp : No hemoptysis Cardio : No anginal CP, PND, orthopnea, palpitation GI : No abd.pain, n/v ,diarrhea or GI bleeding . [employer] : No headache, vertigo, focal deficit. Musculoskel : No joint swelling , Derm : No rash Psych : Normal affect. Ext : No swelling ,calf pain PE. Pt. is alert awake in no distress. V.S As noted in the chart Head ,ear nose,throat and eyes : Normal. Neck : Supple with normal carotids. Lungs:EVAN WHEEZE WITH RONCHI Heart : S1 & S2 normal with S4. No murmur. Abd : Soft non tender with normal bowel sounds. Neuro : Moves all ext. with no localized deficit. Ext : No edema with intact pulses.Non tender calves Derm : No rashes or decubitus ulcer. LABS/RADIOLOGY: ASSESSMENT/PLAN : AWAITINT PSYCH CONT STEROIDS /NEB/AB Objective - Vital Signs/Intake and Output Vital Signs (last 24 hours): Temp Pulse Resp BP Pulse Ox 98.2 F 87 20 177/98 H 98 04/22/18 07:00 04/22/18 07:00 04/22/18 07:00 04/22/18 07:00 04/22/18 07:00 Intake and Output: 04/21/18 04/22/18 23:59 11:59 Intake Total 400 600 Balance 400 600 - Medications Medications: Current Medications Albuterol/Ipratropium (Duoneb 3 Mg/0.5 Mg (3 Ml) Ud) 3 ml INH RQ4 HARPREET Last Admin: 04/22/18 11:05 Dose: 3 ml Clonidine HCl (Catapres) 0.1 mg PO Q6H HARPREET Last Admin: 04/22/18 09:47 Dose: 0.1 mg Heparin Sodium (Porcine) (Heparin) 5,000 units SC Q12 [facility] Last Admin: 04/22/18 09:49 Dose: Not Given Methylprednisolone (Solu-Medrol) 40 mg IVP Q8H [facility] Last Admin: 04/22/18 03:37 Dose: 40 mg Multi-Ingredient Ointment (Prep-Hem) 0 ea TOP BID PRN PRN Reason: Hemorrhoids Tramadol HCl (Ultram) 50 mg PO BID PRN PRN Reason: Pain, moderate (4-7) Last Admin: 04/22/18 05:00 Dose: 50 mg - Labs Labs: 04/22/18 07:02 04/22/18 07:02 Assessment and Plan (1) COPD exacerbation Status: Acute
--- NOTE | 2018-04-23 11:43 | CP.PCM.DIS ---
Provider - Provider Date of Admission: 04/21/18 10:29 Attending physician: Doug Sanchez MD Consults: 04/21/18 13:46 Psychiatry Consult Routine Comment: Consulting Provider: Reyna Cowan Consulting Physician: Reyna Cwoan Reason for Consult: substance abuse Time Spent in preparation of Discharge (in minutes): 3 Diagnosis - Discharge Diagnosis (1) COPD exacerbation Status: Acute Priority: High Hospital Course - Lab Results Lab Results: Most Recent Lab Values WBC 15.3 K/uL (4.8-10.8) H D 04/22/18 07:02 RBC 4.28 Mil/uL (3.80-5.20) 04/22/18 07:02 Hgb 11.9 g/dL (11.0-16.0) 04/22/18 07:02 Hct 36.8 % (34.0-47.0) 04/22/18 07:02 MCV 85.8 fL (81.0-99.0) 04/22/18 07:02 MCH 27.7 pg (27.0-31.0) 04/22/18 07:02 MCHC 32.3 g/dL (33.0-37.0) L 04/22/18 07:02 RDW 16.3 % (11.5-14.5) H 04/22/18 07:02 Plt Count 491 K/uL (130-400) H 04/22/18 07:02 MPV 7.6 fL (7.2-11.7) 04/22/18 07:02 Neut % (Auto) 91.7 % (50.0-75.0) H 04/22/18 07:02 Lymph % (Auto) 5.1 % (20.0-40.0) L 04/22/18 07:02 [place] % (Auto) 3.1 % (0.0-10.0) 04/22/18 07:02 Eos % (Auto) 0.0 % (0.0-4.0) 04/22/18 07:02 Baso % (Auto) 0.1 % (0.0-2.0) 04/22/18 07:02 Neut # (Auto) 14.0 K/uL (1.8-7.0) H 04/22/18 07:02 Lymph # (Auto) 0.8 K/uL (1.0-4.3) L 04/22/18 07:02 [place] # (Auto) 0.5 K/uL (0.0-0.8) 04/22/18 07:02 Eos # (Auto) 0.0 K/uL (0.0-0.7) 04/22/18 07:02 Baso # (Auto) 0.0 K/uL (0.0-0.2) 04/22/18 07:02 Neutrophils % (Manual) 93 % (50-75) H 04/22/18 07:02 Lymphocytes % (Manual) 2 % (20-40) L 04/22/18 07:02 Monocytes % (Manual) 5 % (0-10) 04/22/18 07:02 Platelet Estimate Slightly increased (NORMAL) H 04/22/18 07:02 Hypochromasia (manual) Slight 04/22/18 07:02 Anisocytosis (manual) Slight 04/22/18 07:02 Sodium 128 mmol/L (132-148) L 04/22/18 07:02 Potassium 4.3 mmol/L (3.6-5.2) 04/22/18 07:02 Chloride 93 mmol/L (98-107) L 04/22/18 07:02 Carbon Dioxide 31 mmol/L (22-30) H 04/22/18 07:02 Anion Gap 9 (10-20) L 04/22/18 07:02 BUN 8 mg/dL (7-17) 04/22/18 07:02 Creatinine 0.3 mg/dL (0.7-1.2) L 04/22/18 07:02 Est GFR ( Amer) > 60 04/22/18 07:02 Est GFR (Non-Af Amer) > 60 04/22/18 07:02 Random Glucose 140 mg/dL (65-105) H D 04/22/18 07:02 Calcium 9.0 mg/dl (8.6-10.4) 04/22/18 07:02 Total Bilirubin 0.3 mg/dL (0.2-1.3) 04/22/18 07:02 AST 34 U/L (14-36) 04/22/18 07:02 ALT 31 U/L (9-52) 04/22/18 07:02 Alkaline Phosphatase 98 U/L (38-126) 04/22/18 07:02 Troponin I < 0.0120 ng/mL (0.00-0.120) 04/21/18 08:22 Total Protein 6.5 g/dL (6.3-8.3) 04/22/18 07:02 Albumin 3.8 g/dL (3.5-5.0) 04/22/18 07:02 Globulin 2.7 gm/dL (2.2-3.9) 04/22/18 07:02 Albumin/Globulin Ratio 1.4 (1.0-2.1) 04/22/18 07:02 - Hospital Course Hospital Course: PT REFUSED TREATMENT SIGNED OUT AMA REFUSED DETOX Discharge Exam - Head Exam Head Exam: ATRAUMATIC, NORMAL INSPECTION, NORMOCEPHALIC Discharge Plan - Follow Up Plan Condition: FAIR Disposition: AGAINST MEDICAL ADVICE
--- NOTE | 2018-04-23 22:13 | CARD ---
APPROVED REPORT Date of service: 04/21/2018 EKG Measurement Heart [id number] <Conclusion> Sinus bradycardia Voltage criteria for left ventricular hypertrophy Abnormal ECG
== END 2018-04-22 14:21 | disposition left against medical advice (07) ==
LOC: C.ER 07:44 → C.9E 10:29 → C.3T 11:35
PROVIDERS: ADMIT Internal Medicine Cardiovascular Disease; ATTEND Internal Medicine Cardiovascular Disease
DX: J44.1 Chronic obstructive pulmonary disease with (acute) exacerbation (principal); F17.210 Nicotine dependence, cigarettes, uncomplicated; F33.0 Major depressive disorder, recurrent, mild; J45.901 Unspecified asthma with (acute) exacerbation; N18.9 Chronic kidney disease, unspecified; Z59.0 Homelessness; F11.23 Opioid dependence with withdrawal
CPT/HCPCS: 36415; 71045; 80053; 84484; 85025; 93005; 94640; 96365; 96375; 96376; 99285; G0378; J2060; J2920; J3475

== ENCOUNTER 2018-04-26 22:17 | Emergency (ER) | payer OTHER ==
[2018-04-26 22:17] VITALS: BMI 20.1
[2018-04-26] MEDS ORDERED: Albuterol-Ipratrop 3 mg / 0.5 (3 ml) UD ONE (22:27)
[2018-04-26] MEDS ORDERED: Albuterol-Ipratrop 3 mg / 0.5 (3 ml) UD INH STA ×3 (22:34→22:36)
--- NOTE | 2018-04-26 22:53 | C.PDOC ---
History Of Present Illness Patient reports "my asthma has been acting up", states that this occurs everyday but was worse today. She has a long history of respiratory issues and is well known to this ED for asthma exacerbations, this is her 19th visit in a month and a half. Patient denies fever or cough. Reports some chest discomfort. Time Seen by Provider: 04/26/18 22:36 Chief Complaint (Nursing): Shortness Of Breath Past Medical History Reviewed: Historical Data, Nursing Documentation, Vital Signs Vital Signs: Last Vital Signs Temp 97.7 F 04/26/18 22:26 Pulse 101 H 04/26/18 22:26 Resp 26 H 04/26/18 22:26 BP 153/90 H 04/26/18 22:26 Pulse Ox 96 04/26/18 22:26 - Medical History PMH: Anxiety, Asthma, Back Problems, Bronchitis, COPD, Depression, Kidney Stones (RIGHT), Pneumonia, Chronic Kidney Disease Denies: HIV, HTN, Seizures, Sexually Transmitted Disease Comment Only: Gastritis (Patient denies gatritis) - [facility] Procedures (01/05/18) CLOSURE SKIN & SUBCUTANEOUS NEC (04/25/13) DETOXIFICATION SERVICES FOR SUBSTANCE ABUSE TREATMENT (12/24/17) INDIV PSYCHOTHERAPY FOR SUBSTANCE ABUSE TREATMENT, SUPPORT (05/23/16) INJECT/INFUSE NEC (06/22/14) INTRODUCE OF OTH THERAP SUBST INTO RESP TRACT, VIA OPENING (12/16/17) INTRODUCTION OF ANTI-INFLAM INTO RESP TRACT, VIA OPENING (03/16/15) INTRODUCTION OF SERUM/TOX/VACCINE INTO MUSCLE, PERC APPROACH (03/16/15) MEDICATION MANAGEMENT (12/24/17) MEDS MGMT FOR SUBSTANCE ABUSE TREATMENT, METHADONE MAINT (12/24/17) NEBULIZER THERAPY (06/22/14) TETANUS TOXOID ADMINIST (04/25/13) Family History: States: Unknown Family Hx - Social History Hx Tobacco Use: Yes (3-4 cigarettes a day) Hx Alcohol Use: No (DENIES) Hx Substance Use: Yes - Immunization History Hx Tetanus Toxoid Vaccination: Yes Hx Influenza Vaccination: Yes Hx Pneumococcal Vaccination: Yes Review Of Systems Except As Marked, All Systems Reviewed And Found Negative. Constitutional: Negative for: Fever, Chills Cardiovascular: Positive for: Chest Pain Respiratory: Positive for: Shortness of Breath, Wheezing. Negative for: Cough Gastrointestinal: Negative for: Nausea, Vomiting, Abdominal Pain, Diarrhea Genitourinary: Negative for: Dysuria Skin: Negative for: Rash Neurological: Negative for: Altered Mental Status Physical Exam - Physical Exam Appears: In Acute Distress (Mild to moderate respiratory distress) Skin: Normal Color, Warm, Dry Head: Atraumatic Eye(s): bilateral: Normal Inspection Oral Mucosa: Moist Cardiovascular: Rhythm Regular Respiratory: No Accessory Muscle Use, Wheezing Gastrointestinal/Abdominal: Normal Exam Extremity: No Deformity Neurological/Psych: Oriented x3, Normal Speech ED Course And Treatment O2 Sat by Pulse Oximetry: 96 Medical Decision Making Medical Decision Making: Patient given duoneb x3 and 40mg prednisone PO. On re-eval patient lying in position on the stretcher texting, no longer in any distress. She requests Rx for steroids and albuterol inhaler, both of which were written. Advised outpatient followup. Disposition - Disposition Disposition: HOME/ ROUTINE Disposition Time: 23:49 Condition: STABLE Additional Instructions: MALA MCELROY, thank you for letting us take care of you today. Your provider was Mary Thurston MD and you were treated for ASTHMA. The emergency medical care you received today was directed at your acute symptoms. If you were prescribed any medication, please fill it and take as directed. It may take several days for your symptoms to resolve. Return to the Emergency Department if your symptoms worsen, do not improve, or if you have any other problems. Please contact your doctor or call one of the physicians/clinics you have been referred to that are listed on the Patient Visit Information form that is included in your discharge packet. Bring any paperwork you were given at discharge with you along with any medications you are taking to your follow up visit. Our treatment cannot replace ongoing medical care by a primary care provider outside of the emergency department. [facility] your care today. If you had an X-Ray or CT scan: A Radiologist will review the ED reading if any change in treatment is needed we will contact you. If you had a blood, urine, or wound culture: It will take several days for the results, if any change in treatment is needed we will contact you. If you had an STI test: It will take 48 hours for the results. Please call after 1 week if you have not heard back. Prescriptions: Albuterol Sulfate [Ventolin Hfa] 2 puff IH Q4H #1 inh predniSONE [Prednisone] 40 mg PO DAILY 5 Days tab Instructions: Asthma, Adult (DC) Forms: [facility] (Sami) - Clinical Impression Clinical Impression: Asthma exacerbation
[2018-04-27 02:53] VITALS: RESP 24
[2018-04-27 02:55] VITALS: BP 128/72; PULSE 92; TEMP 98.4; O2SAT 97
== END 2018-04-27 00:45 | disposition home or self-care (01) ==
LOC: C.ER 22:17
DX: J45.901 Unspecified asthma with (acute) exacerbation (principal); Z87.891 Personal history of nicotine dependence